=== PATIENT | male | born 1960 | race Caucasian/White ===

== ENCOUNTER 2020-06-03 19:30 | Inpatient (IN) ==
[2020-06-03 19:50] VITALS: BMI 23.7
[2020-06-03 21:32] LABS: BASOPHILS # (AUTO) 0.1 X10^3/uL (0.0-0.1); BASOPHILS % (AUTO) 0.5 % (0.2-1.0); EOSINOPHILS # (AUTO) 0.1 x10^3/uL (0.0-0.2); EOSINOPHILS % (AUTO) 0.7 % (0.9-2.9); HEMATOCRIT 46.1 % (42.0-54.0); HEMOGLOBIN 15.7 g/dL (13.5-18.0); LYMPHOCYTES # (AUTO) 2.1 X10^3/uL (1.3-2.9); LYMPHOCYTES % (AUTO) 13.9 % (21.0-51.0); MEAN CORPUSCULAR HEMOGLOBIN 31.2 pg (27.0-34.0); MEAN CORPUSCULAR HGB CONC 34.1 g/dL (33.0-35.0); MEAN CORPUSCULAR VOLUME 91.5 fL (80.0-100.0); MEAN PLATELET VOLUME 8.5 fL (7.4-11.0); MONOCYTES # (AUTO) 1.2 x10^3/uL (0.3-0.8); MONOCYTES % (AUTO) 7.6 % (0.0-13.0); NEUTROPHILS # (AUTO) 11.9 x10^3/uL (2.2-4.8); NEUTROPHILS % (AUTO) 77.3 % (42.0-75.0); PLATELET COUNT 334 X10^3/uL (150.0-450.0); RED BLOOD COUNT 5.04 X10^6/uL (4.7-6.0); RED CELL DISTRIBUTION WIDTH 13.1 % (11.6-16.5); WHITE BLOOD COUNT 15.4 X10^3/uL (3.6-10.0)
--- NOTE | 2020-06-03 21:39 | RAD ---
CHEST, 1 VIEWHISTORY: PT SCHEDULED FOR SURGERY IN AM 06-04-2020 FOR PARTIAL LLE AMPUTATION BY DR.BRIAN Wang: Single view of the chest.Comparison:NoneFindings:The cardiomediastinal silhouette is normal.No focal consolidations, pleural effusions or pneumothorax. Osseous structures demonstrate no acute abnormality.IMPRESSION:1. No acute cardiopulmonary process.Electronically signed by: SHANNA BONDS (Jun 03, 2020 21:36:56)
[2020-06-03 21:41] LABS: HEMOGLOBIN A1C 8.1 %
[2020-06-03 21:47] LABS: GIANT PLATELET OCCASIONAL; PLATELET MORPHOLOGY COMMENT ABNORMAL (NORMAL)
[2020-06-03 21:48] LABS: ALANINE AMINOTRANSFERASE 40 Units/L (12-78); ALBUMIN 3.1 g/dL (3.4-5.0); ALKALINE PHOSPHATASE 135 Units/L (46-116); ANISOCYTOSIS SLIGHT; ASPARTATE AMINO TRANSFERASE 26 Units/L (15-37); BLOOD UREA NITROGEN 14 mg/dL (7-18); CALCIUM 9.6 mg/dL (8.5-10.1); CHLORIDE 98 mmol/L (98-107); COR CA(FOR HYPOALB) 10.3 mg/dL (8.5-10.1); COR NA(FOR HYPERGLY) 138 mmol/L (136-145); CREATININE 1.01 mg/dL (0.70-1.30); SODIUM 135 mmol/L (136-145); TOTAL PROTEIN 8.4 g/dL (6.4-8.2); eGFR NON BLACK RACES > 60 (>60)
[2020-06-03] MEDS ORDERED: ROXICODONE TAB 15 MG PO ONE (21:49)
--- NOTE | 2020-06-03 22:27 | DR.EXTPAIN ---
HPI Time seen Time Seen by Provider: 06/03/20 22:14 PCP Primary Care Physician: DR.ALLEN SANCHEZ HPI Comment HPI Comment: Per information received from nurse, pt is to be admitted for transmetatarsal amputation in AM per Dr Miller; he is a pt of Dr Byrnes's ([facility]) and has a "black foot"; the pt is not sure why he is here; he sees Dr Byrnes in [place] and has seen Dr Hamilton for partial foot amputation; he's had no xrays or surgeries here in the past and has not personally met Dr Miller. s/w Dr Byrnes: Had transmetatarsal amputation two weeks ago with subsequent wound dehisence; needs re-vascularization and was to see Dr Hamilton last week; missed appointment d/t pneumonia; family said they could bring him to [facility] or [place] but not [place], so Dr Byrnes discussed w/Dr Miller who agreed to admit pt for further work up +/- further amputation; had raz at [facility]'s office and angiogram per Dr Hamilton in [facility]. Pt with diabetes, cad s/p cabg x 3 and multiple stents; continues to smoke. Complaint/Symptoms Chief Complaint:: PT SCHEDULED FOR SURGERY IN AM 06-04-2020 FOR PARTIAL LLE AMP UTATION BY DR.BRIAN BYRNES Source History Provided: Patient Mode of arrival Mode of Arrival: Wheelchair Timing Onset of Chief Complaint: 06/03/20 PMH PMH Past Medical History: Yes Past Medical History: Coronary Artery Disease, Diabetes and Dyslipidemia Past Surgical History: Yes Surgical History: Angioplasty/Stents and CABG/Valve Surgery Past Surgical History Comment: CERVICAL NECK FUSION, TOES AMPUTATED, BACK SURGERY, CAROTID STENTS Family History History of Family Medical Conditions: Yes Family Medical History: Diabetes Mellitus, [place], Coronary Artery Disease and Sudden Cardiac Social History Does patient currently use any type of tobacco product: Yes Have you used tobacco products in the last 12 months: Yes Type of Tobacco Use: Cigarettes Does any household member use tobacco: Yes Alcohol Use: None Do you use any recreational Drugs:: No Lives With: Family Lives Where: Home Infectious screening In the last 2 months have you had wt loss of >10#?: NO Have you had fever, night sweats or hemotysis?: No Have you traveled outside the country in the last 6 months?: No Isolation: Standard ROS Review of Systems Constitutional: No Symptoms Reported Eyes: No Symptoms Reported ENTM: No Symptoms Reported Respiratoy: No Symptoms Reported Cardiovascular: No Symptoms Reported Gastrointestinal/Abdominal: No Symptoms Reported Genitourinary: No Symptoms Reported Neurological: No Symptoms Reported Hematologic/Lymphatic: No Symptoms Reported Endocrine: No Symptoms Reported Psychiatric: No Symptoms Reported PE Vital Signs Vitals: Temperature 97.6 F Pulse Rate [Left Brachial] 98 Pulse Rate 99 Respiratory Rate 20 Blood Pressure [Left Arm] 115/70 Blood Pressure 99/63 O2 Sat by Pulse Oximetry 97 General Limitations: No Limitations General Appearance: Alert and In No Apparent Distress Head Head Exam: Normal Inspection Eyes Eye exam: Normal Appearance ENT ENT Exam: Normal Exam Neck Neck Exam: Normal Inspection Chest Chest Inspection: Normal Inspection Respiratory Respiratory Exam: Normal Lung Sounds Bilat Cardiovascular Cardiovascular Exam: Regular Rate and Normal Rhythm Abdominal Exam Abdominal Exam: Normal Inspection, Normal Bowel Sounds and Soft Back Back Exam: Normal Inspection Neurological Neurological Exam: Alert, Oriented X3 and CN II-XII Intact Psychiatric Psychiatric Exam: Normal Affect and Normal Mood Skin Skin Exam: Other (cool lle with dressing with minimal purulent discharge) COURSE Consultation Consultation Comments: called Dr Byrnes at [phone] and lt message for call back s/w Dr Byrnes at 10:50pm ROR Labs Reviewed Result Diagrams: 06/03/20 21:20 06/03/20 21:20 Laboratory: WBC 15.4 X10^3/uL (3.6-10.0) H 06/03/20 21:20 RBC 5.04 X10^6/uL (4.7-6.0) 06/03/20 21:20 Hgb 15.7 g/dL (13.5-18.0) 06/03/20 21:20 Hct 46.1 % (42.0-54.0) 06/03/20 21:20 MCV 91.5 fL (80.0-100.0) 06/03/20 21:20 MCH 31.2 pg (27.0-34.0) 06/03/20 21:20 MCHC 34.1 g/dL (33.0-35.0) 06/03/20 21:20 RDW 13.1 % (11.6-16.5) 06/03/20 21:20 Plt Count 334 X10^3/uL (150.0-450.0) 06/03/20 21:20 Plt Count Comment Adequate (ADEQUATE) 06/03/20 21:20 MPV 8.5 fL (7.4-11.0) 06/03/20 21:20 Neut % (Auto) 77.3 % (42.0-75.0) H 06/03/20 21:20 Lymph % (Auto) 13.9 % (21.0-51.0) L 06/03/20 21:20 [place] % (Auto) 7.6 % (0.0-13.0) 06/03/20 21:20 Eos % (Auto) 0.7 % (0.9-2.9) L 06/03/20 21:20 Baso % (Auto) 0.5 % (0.2-1.0) 06/03/20 21:20 Neut # (Auto) 11.9 x10^3/uL (2.2-4.8) H 06/03/20 21:20 Lymph # (Auto) 2.1 X10^3/uL (1.3-2.9) 06/03/20 21:20 [place] # (Auto) 1.2 x10^3/uL (0.3-0.8) H 06/03/20 21:20 Eos # (Auto) 0.1 x10^3/uL (0.0-0.2) 06/03/20 21:20 Baso # (Auto) 0.1 X10^3/uL (0.0-0.1) 06/03/20 21:20 Absolute Nucleated RBC 0.3 /100WBC 06/03/20 21:20 Giant Platelets Occasional 06/03/20 21:20 Plt Morphology Comment Abnormal (NORMAL) 06/03/20 21:20 RBC Morphology Abnormal (NORMAL) 06/03/20 21:20 Anisocytosis Slight A 06/03/20 21:20 Sodium 135 mmol/L (136-145) L 06/03/20 21:20 Corrected Sodium 138 mmol/L (136-145) 06/03/20 21:20 Potassium 4.6 mmol/L (3.5-5.1) 06/03/20 21:20 Chloride 98 mmol/L (98-107) 06/03/20 21:20 Carbon Dioxide 28.0 mmol/L (21-32) 06/03/20 21:20 BUN 14 mg/dL (7-18) 06/03/20 21:20 Creatinine 1.01 mg/dL (0.70-1.30) 06/03/20 21:20 Est GFR (MDRD) Af Amer > 60 (>60) 06/03/20 21:20 Est GFR (MDRD) Non-Af > 60 (>60) 06/03/20 21:20 Glucose 232 mg/dL (65-99) H 06/03/20 21:20 Hemoglobin A1c 8.1 % 06/03/20 21:20 Calcium 9.6 mg/dL (8.5-10.1) 06/03/20 21:20 Corrected Calcium 10.3 mg/dL (8.5-10.1) H 06/03/20 21:20 Total Bilirubin 0.50 mg/dL (0.2-1.0) 06/03/20 21:20 AST 26 Units/L (15-37) 06/03/20 21:20 ALT 40 Units/L (12-78) 06/03/20 21:20 Alkaline Phosphatase 135 Units/L (46-116) H 06/03/20 21:20 Total Protein 8.4 g/dL (6.4-8.2) H 06/03/20 21:20 Albumin 3.1 g/dL (3.4-5.0) L 06/03/20 21:20 Globulin 5.3 g/dL (2.5-4.5) H 06/03/20 21:20 Albumin/Globulin Ratio 0.6 Ratio (1.1-2.1) L 06/03/20 21:20 SARS CoV-2 RNA Rapid ROGERS Negative (NEGATIVE) 06/03/20 21:50 Opioid Opioid Risk Tool Age (Carlito box if 16-45): No History of Preadolescent Sexual Abuse: No Total: 0 Total Score Risk Category: Low Risk Copyright: Kvng FLOYD predicting aberrant behaviors Diagnosis Discharge Problem: Ulcer of left medial lower extremity with necrosis of muscle, Partial nontraumatic amputation of left foot Diabetes mellitus Qualifiers: Diabetes mellitus type: type 2 Diabetes mellitus terminal supervisor insulin use: with detention use Diabetes mellitus complication status: with skin complications Diabetes mellitus complication detail: with foot ulcer Qualified Code(s): E11.621 - Type 2 diabetes mellitus with foot ulcer Instructions Forms: Precautions for COVID19 Patient Portal Social Distancing
[2020-06-03] MEDS ORDERED: ZOSYN VIAL 2.25 GRAMS 2.25 G in NS 100 ML IV + SPIKE MINIBAG* 100 ML IV SCH (23:52)
[2020-06-03] MEDS ORDERED: ZOSYN VIAL 4.5 GRAMS IV ONE (23:59)
[2020-06-03] MEDS ORDERED: NS 1000 ML 1,000 ML ONE (23:59)
[2020-06-04] MEDS ORDERED: NS 100 ML IV + SPIKE MINIBAG* 100 ML IV ONE
[2020-06-04 00:41] LABS: BILIRUBIN,URINE NEGATIVE (NEGATIVE); BLOOD/HEMOGLOBIN,URINE 1+ (NEGATIVE); GLUCOSE, URINE 4+ (NEGATIVE); KETONES,URINE NEGATIVE (NEGATIVE); LEUKOCYTE ESTERASE ,URINE 1+ (NEGATIVE); NITRITES,URINE NEGATIVE (NEGATIVE); PROTEIN,URINE 2+ (NEGATIVE); UROBILINOGEN,URINE 2+ (NORMAL)
[2020-06-04] MEDS: NS 1000 ML 1,000 ML IV SCH ×2 (00:42→13:29)
[2020-06-04] MEDS: ZOSYN VIAL 4.5 GRAMS 4.5 G in NS 100 ML IV + SPIKE MINIBAG* 100 ML IV SCH ×4 (00:42→21:21)
[2020-06-04 00:50] LABS: COLOR,URINE AMBER (YELLOW)
[2020-06-04 00:51] LABS: APPEARANCE,URINE CLEAR (CLEAR); BACTERIA,URINE TRACE /HPF (NEGATIVE); MUCUS,URINE MODERATE /HPF (NEGATIVE); RBC,URINE 0-2 /HPF (0-3); SQUAMOUS EPITHELIAL CELL,UR FEW /HPF (NEGATIVE)
[2020-06-04 05:58] LABS: BASOPHILS % (AUTO) 0.5 % (0.2-1.0); EOSINOPHILS # (AUTO) 0.1 x10^3/uL (0.0-0.2); EOSINOPHILS % (AUTO) 1.3 % (0.9-2.9); HEMATOCRIT 38.4 % (42.0-54.0); HEMOGLOBIN 13.1 g/dL (13.5-18.0); LYMPHOCYTES # (AUTO) 2.3 X10^3/uL (1.3-2.9); LYMPHOCYTES % (AUTO) 24.1 % (21.0-51.0); MEAN CORPUSCULAR HEMOGLOBIN 30.8 pg (27.0-34.0); MEAN CORPUSCULAR VOLUME 90.7 fL (80.0-100.0); MEAN PLATELET VOLUME 8.2 fL (7.4-11.0); MONOCYTES # (AUTO) 1.1 x10^3/uL (0.3-0.8); MONOCYTES % (AUTO) 10.9 % (0.0-13.0); NEUTROPHILS # (AUTO) 6.1 x10^3/uL (2.2-4.8); NEUTROPHILS % (AUTO) 63.2 % (42.0-75.0); PLATELET COUNT 281 X10^3/uL (150.0-450.0); RED BLOOD COUNT 4.24 X10^6/uL (4.7-6.0); WHITE BLOOD COUNT 9.7 X10^3/uL (3.6-10.0)
[2020-06-04 06:18] LABS: ALANINE AMINOTRANSFERASE 32 Units/L (12-78); ALBUMIN 2.4 g/dL (3.4-5.0); ALKALINE PHOSPHATASE 100 Units/L (46-116); ASPARTATE AMINO TRANSFERASE 17 Units/L (15-37); BLOOD UREA NITROGEN 12 mg/dL (7-18); CARBON DIOXIDE 26.8 mmol/L (21-32); CHLORIDE 101 mmol/L (98-107); COR CA(FOR HYPOALB) 10.3 mg/dL (8.5-10.1); COR NA(FOR HYPERGLY) 139 mmol/L (136-145); CREATININE 0.91 mg/dL (0.70-1.30); SODIUM 137 mmol/L (136-145); TOTAL PROTEIN 6.5 g/dL (6.4-8.2); eGFR NON BLACK RACES > 60 (>60)
[2020-06-04] MEDS ORDERED: NS 100 ML IV 100 ML IV ONE (08:36)
--- NOTE | 2020-06-04 10:21 | DR.H&P ---
H&P History & Physical for Day of: H&P Date: 06/04/20 Chief Complaint Chief Complaint: 59 yo male with significant history of tobacco abuse ( still smoking), diabetes, history of CABG x 3 vessels in the distant past as well as stenting both carotids, failed coronary stents prior to CABG, Femoral -FEMORAL bypass and right fem-pop bypass and right trans-metatarsal amputation with recent left trans-metatarsal amputation about 4 month ago with wound left dorsal foot now with rubor and gangrenous changes dorsal left foot with question of cellulitis . Wound of the left foot is open with eschar approximately 5x5 cm. Spoke with referring front office developer, Dr. Byrnes who said that patient had been planned for bypass of the left leg in [place], [place] in the near future. He did not want to go to [place], hence I have been consulted. Allergies Allergies Allergy/AdvReac Type Severity Reaction Status Date / Time Thgvqkr-Vml-Faw Reductase Allergy Verified 06/03/20 21:56 Inhibitor History of Present Illness History of Present Illness: See above Past Medical History Past Medical History: COPD, Coronary Artery Disease, Diabetes, Dyslipidemia, GERD and Hypertension Past Surgical History Surgical History: Angioplasty/Stents and CABG/Valve Surgery Additional Surgical History: See H& P above . Family History Family Medical History: Diabetes Mellitus, [place], Coronary Artery Disease and Sudden Cardiac Social History Does patient currently use any type of tobacco product: Yes Have you used tobacco products in the last 12 months: Yes Type of Tobacco Use: Cigarettes How many years tobacco product used: 40 Does any household member use tobacco: Yes Alcohol Use: None Drug Use: None Medications Home Medications: Idjhjcv-Rqz-Qsu Reductase Inhibitor Allergy (Verified 06/03/20 21:56) CONTINUE taking the following medications albuterol sulfate [ProAir HFA] 2 puff INHALATION Q4H PRN 06/03/20 [History] aspirin [Aspir-81] 81 mg PO DAILY 06/03/20 [History] carvedilol 6.25 mg PO BID 06/03/20 [History] cyclobenzaprine 10 mg PO BID 06/03/20 [History] rcbavhevbkx-kntyisxmk-oposwucf [Trelegy Ellipta] 1 inh INHALATION Q24H 06/03/20 [History] gabapentin 800 mg PO TID 06/03/20 [History] levofloxacin [Levaquin] 500 mg PO Q24H 06/03/20 [History] oxycodone 30 mg PO Q8H PRN 06/03/20 [History] pantoprazole 40 mg PO QAM 06/03/20 [History] Labs Result Diagrams: 06/04/20 05:19 06/04/20 05:19 Labs: Laboratory WBC 9.7 X10^3/uL (3.6-10.0) 06/04/20 05:19 RBC 4.24 X10^6/uL (4.7-6.0) L 06/04/20 05:19 Hgb 13.1 g/dL (13.5-18.0) L D 06/04/20 05:19 Hct 38.4 % (42.0-54.0) L 06/04/20 05:19 MCV 90.7 fL (80.0-100.0) 06/04/20 05:19 MCH 30.8 pg (27.0-34.0) 06/04/20 05:19 MCHC 34.0 g/dL (33.0-35.0) 06/04/20 05:19 RDW 13.0 % (11.6-16.5) 06/04/20 05:19 Plt Count 281 X10^3/uL (150.0-450.0) 06/04/20 05:19 Plt Count Comment Adequate (ADEQUATE) 06/03/20 21:20 MPV 8.2 fL (7.4-11.0) 06/04/20 05:19 Neut % (Auto) 63.2 % (42.0-75.0) 06/04/20 05:19 Lymph % (Auto) 24.1 % (21.0-51.0) 06/04/20 05:19 [place] % (Auto) 10.9 % (0.0-13.0) 06/04/20 05:19 Eos % (Auto) 1.3 % (0.9-2.9) 06/04/20 05:19 Baso % (Auto) 0.5 % (0.2-1.0) 06/04/20 05:19 Neut # (Auto) 6.1 x10^3/uL (2.2-4.8) H 06/04/20 05:19 Lymph # (Auto) 2.3 X10^3/uL (1.3-2.9) 06/04/20 05:19 [place] # (Auto) 1.1 x10^3/uL (0.3-0.8) H 06/04/20 05:19 Eos # (Auto) 0.1 x10^3/uL (0.0-0.2) 06/04/20 05:19 Baso # (Auto) 0.0 X10^3/uL (0.0-0.1) 06/04/20 05:19 Absolute Nucleated RBC 0.0 /100WBC 06/04/20 05:19 Giant Platelets Occasional 06/03/20 21:20 Plt Morphology Comment Abnormal (NORMAL) 06/03/20 21:20 RBC Morphology Abnormal (NORMAL) 06/03/20 21:20 Anisocytosis Slight A 06/03/20 21:20 Sodium 137 mmol/L (136-145) 06/04/20 05:19 Corrected Sodium 139 mmol/L (136-145) 06/04/20 05:19 Potassium 3.9 mmol/L (3.5-5.1) 06/04/20 05:19 Chloride 101 mmol/L (98-107) 06/04/20 05:19 Carbon Dioxide 26.8 mmol/L (21-32) 06/04/20 05:19 BUN 12 mg/dL (7-18) 06/04/20 05:19 Creatinine 0.91 mg/dL (0.70-1.30) 06/04/20 05:19 Est GFR (MDRD) Af Amer > 60 (>60) 06/04/20 05:19 Est GFR (MDRD) Non-Af > 60 (>60) 06/04/20 05:19 Glucose 173 mg/dL (65-99) H 06/04/20 05:19 POC Glucose (mg/dL) 167 mg/dL (65-99) H 06/04/20 05:02 Hemoglobin A1c 8.1 % 06/03/20 21:20 Calcium 9.0 mg/dL (8.5-10.1) 06/04/20 05:19 Corrected Calcium 10.3 mg/dL (8.5-10.1) H 06/04/20 05:19 Total Bilirubin 0.50 mg/dL (0.2-1.0) 06/04/20 05:19 AST 17 Units/L (15-37) 06/04/20 05:19 ALT 32 Units/L (12-78) 06/04/20 05:19 Alkaline Phosphatase 100 Units/L (46-116) 06/04/20 05:19 Total Protein 6.5 g/dL (6.4-8.2) 06/04/20 05:19 Albumin 2.4 g/dL (3.4-5.0) L 06/04/20 05:19 Globulin 4.1 g/dL (2.5-4.5) 06/04/20 05:19 Albumin/Globulin Ratio 0.6 Ratio (1.1-2.1) L 06/04/20 05:19 Specimen Type Clean catch urine 06/04/20 00:18 Urine Color Evita (YELLOW) 06/04/20 00:18 Urine Appearance Clear (CLEAR) 06/04/20 00:18 Urine pH 5.0 (5.0 - 8.0) 06/04/20 00:18 Ur Specific [place] 1.025 (1.000-1.030) 06/04/20 00:18 Urine Protein 2+ (NEGATIVE) 06/04/20 00:18 Urine Glucose (UA) 4+ (NEGATIVE) 06/04/20 00:18 Urine Ketones Negative (NEGATIVE) 06/04/20 00:18 Urine Occult Blood 1+ (NEGATIVE) 06/04/20 00:18 Urine Nitrite Negative (NEGATIVE) 06/04/20 00:18 Urine Bilirubin Negative (NEGATIVE) 06/04/20 00:18 Urine Urobilinogen 2+ (NORMAL) 06/04/20 00:18 Ur Leukocyte Esterase 1+ (NEGATIVE) 06/04/20 00:18 Urine RBC 0-2 /HPF (0-3) 06/04/20 00:18 Urine WBC 0-2 /HPF (0-5) 06/04/20 00:18 Ur Squamous Epith Cells Few /HPF (NEGATIVE) 06/04/20 00:18 Urine Bacteria Trace /HPF (NEGATIVE) 06/04/20 00:18 Urine Mucus Moderate /HPF (NEGATIVE) 06/04/20 00:18 Ur Culture Indicated? No/not indicated 06/04/20 00:18 SARS CoV-2 RNA Rapid ROGERS Negative (NEGATIVE) 06/03/20 21:50 Review of Systems Constitutional: Other (pain and redness left foot with non-healing wound) Cardiovascular: Other ( femoral pulses weakly palpable b/l , absebt distal pulse both feet.) Gastrointestinal: No Symptoms Reported and See HPI Genitourinary: No Symptoms Reported Musculoskeletal: Foot Pain ( Paoin left foot ) and Other Skin: Wound ( Wound dorsum of the left foot.) Neurological: No Symptoms Reported Physical Exam Vital Signs: Temperature 97.8 F Pulse Rate [Left Brachial] 70 Pulse Rate 99 Respiratory Rate 18 Blood Pressure [Left Arm] 99/58 Blood Pressure 99/63 O2 Sat by Pulse Oximetry 95 Oriented: Normal, Time and Place Eyes: Normal Ear: Normal Nose: Normal Throat: Normal Respiratory: Diminished Throughout Cardiovascular: Normal : Normal Auscultation: Bowel Sounds: Normal Palpation: Normal Tenderness: Normal Skin: Wound (5x 5 cm dark eschar dorsum left foot with cellulitis , healed right transmetatarsal amputation) and Other Assessment/Plan (1) Tobacco abuse: Status: Acute Plan: Nicotine patch, counseling of risk of smoking and limb loss (2) Critical ischemia of foot: Status: Acute Plan: Plan LE duplex and CTA of aorta and runoff to make a plan for re- vascularization. Significant risk of limb loss left leg this hospitalization (3) Ulcer of left medial lower extremity with necrosis of muscle: Status: Acute Plan: See above. Will treat with IV antibiotics and Santyl. (4) Partial nontraumatic amputation of left foot: Status: Acute Plan: See above (5) Diabetes mellitus: Qualifiers: Diabetes mellitus complication detail: with foot ulcer Diabetes mellitus complication status: with skin complications Diabetes mellitus mcc insulin use: with mcc use Diabetes mellitus type: type 2 Qualified Code(s): E11.621 - Type 2 diabetes mellitus with foot ulcer; L97.509 - Non- pressure chronic ulcer of other part of unspecified foot with unspecified severity; Z79.4 - termite exterminator (current) use of insulin Status: Acute Plan: Sliding scale insulin now, check Hgb A1c (6) Hypertension: Qualifiers: Hypertension type: essential hypertension Qualified Code(s): I10 - Essential (primary) hypertension Status: Acute Plan: Continue home medications (7) GERD (gastroesophageal reflux disease): Qualifiers: Esophagitis presence: esophagitis presence not specified Qualified Code(s): K21.9 - Gastro-esophageal reflux disease without esophagitis Status: Acute Plan: Continue home medications Review H&P Reviewed: Yes Patient was examined?: Yes
[2020-06-04] MEDS ORDERED: REFLEX: PROVENTIL NEB & PulmiCORT NEB~ NEB SCH (11:15)
--- NOTE | 2020-06-04 11:58 | CT ---
HISTORYISCHEMIC LEFT FOOT, HX OF LE BYPASSSTUDYCTA abdomen, pelvis, and bilateral lower extremities without and with IV contrastCOMPARISONNoneTECHNIQUEMultiple axial images of the abdomen, pelvis, and bilateral lower extremities were obtained from the lung bases to the plantar surface of the feet prior to and following the administration of IV contrast. 150 cc Omnipaque 350 IV contrast. 3D reconstructions were performed utilizing radial maximum intensity projection imaging. Dose reduction techniques including Automated Exposure Control (AEC) and adjustment of mA and kV were utilized.FINDINGSThere is abnormal infiltrative alveolar density in the right lung base. This may be lobar pneumonia but infiltrative malignancy should be given consideration. This area is obscured due to the diaphragm on chest x-ray. Possible fatty infiltration of the liver. Gallbladder and pancreas appear normal. Spleen and adrenal glands appear normal. Kidneys are excreting contrast at time of imaging limiting evaluation for tiny stones. No hydronephrosis is seen. Benign renal cysts are seen.Prostate gland is prominent measuring 5.6 x 4.2 x 4.8 cm. No free pelvic fluid is seen. There is mild diffuse constipation. There is normal appendix. Moderate scoliosis is seen in the thoracolumbar spine with likely moderate to prominent lumbar spondylosis.Abdominal aorta: Normal in size. Mild partially calcified atherosclerotic plaque is seen in the abdominal aorta. There is no celiac axis stenosis but there is likely 50 percent stenosis in the origin of the SMA. Mild stenosis is seen in the mid SMA, also. Distal SMA branches appear to enhance normally. [place] may have mild stenosis at the origin but enhances normally. Single renal arteries are seen bilaterally without significant stenosis.Common iliac arteries: Partially calcified plaque in the common iliac arteries causes 60-70 percent stenosis at the origin of the right common iliac artery. No suggestion of significant left common iliac stenosis is seen. There is a stent in the distal left common iliac artery extending into the left external iliac artery.External iliac arteries: There is normal enhancement of the stent in the left external iliac artery. There is occlusion of the mid to distal right external iliac artery. Patient has fem-fem bypass graft arising from the left common femoral artery and supplying the right common femoral artery. It enhances normally.Right lower extremity: Enhancement of the distal right GRAPHIC DESIGN MANAGER from the fem-fem bypass graft is seen but there is occlusion of the right SFA at the origin. A right SFA bypass graft does not enhance. Collaterals from the deep femoral vasculature supply the muscogee distal right SFA. Moderate calcified plaque in the distal right femoral artery may cause hemodynamically significant stenosis. Little stenoses are seen in the right popliteal artery. Calcified plaque in the proximal right JASEN likely causes moderate stenosis but three-vessel runoff is seen enhancing near the right ankle. Right peroneal artery is not definitely identified to enhance at the ankle but this could be due to timing of imaging.Left lower extremity: There is calcified plaque in the left GRAPHIC DESIGN MANAGER very near the fem-fem bypass graft. This plaque likely causes 70-80 percent stenosis. Noncalcified plaque within the origin of the left SFA stent causes subtotal stenosis of the graft. There is occlusion of the left SFA stent a few cm from its origin. Enhancement of small distal left SFA and popliteal artery is seen intermittently. Collateral vasculature supplies the left lower leg. Anterior tibial artery is very minimally and intermittently opacified but three-vessel runoff is seen at the ankle due to collaterals.There is asymmetric edema in the left ankle and foot. Less prominent edema is seen in the right foot. There is air or gas in the left forefoot near the mid metatarsal region with skin ulcerations in this area. Gas gangrene is not excluded but the air or gas could be from the ulcerations. Likely amputation of the metatarsals is present bilaterally.IMPRESSIONProminent stenoses and occlusions are seen in both lower extremities with possible cellulitis in the feet. Skin ulcerations in the left foot with air or gas in the soft tissues. Gas gangrene is not excluded.Right SFA bypass graft is occluded with deep femoral vasculature supplying the distal right SFA. Possible hemodynamically significant stenoses in the distal right SFA and proximal right JASEN but three-vessel runoff is seen just above the ankle. Nonenhancing right peroneal artery is seen at the ankle but this may be due to timing.Patent fem-fem bypass graft but there is high-grade stenosis of the left GRAPHIC DESIGN MANAGER proximal to the bypass graft, likely 70 80 percent stenosis. Subtotal stenosis is seen in the origin of the left SFA stent and there is occlusion of the left SFA stent near its origin. Only intermittent appearance of distal left SFA and popliteal artery is seen with deep collateral vasculature supplying the left lower leg. Collateral vasculature appears to reconstitute the left peroneal and posterior tibial arteries proximally with the left anterior tibial artery supplied by collaterals at the level of the ankle.Electronically signed by: Delon AlvesJun 04, 2020 11:56:08)
--- NOTE | 2020-06-04 12:27 | VAS ---
HISTORYLLE NECROSIS/ISCHEMIC ARTERY DISEASE, WOUND DEHISENCESTUDYLOWER EXT ARTERIALCOMPARISONCTA aortogram runoff 06/04/2020TECHNIQUESixty images made by the software quality assurance specialist. Ordaz scale and color flow Doppler images of the right and left lower extremity arterial system were obtained. Velocities are measured in centimeters per second.FINDINGSLeft leg: Blood flow is demonstrated in the left common femoral artery. Systolic velocity measured 141 cm/second. The waveform appears monophasic small suggesting a more proximal left iliac stenosis.No color blood flow, waveform, or velocity could be found in superficial femoral artery or the popliteal artery. No blood flow detected in the peroneal artery. No blood flow seen in the dorsalis pedis artery. Findings suggest a long complete occlusion.Right leg: Blood flow is demonstrated in the common femoral artery in the proximal superficial femoral artery. Maximum systolic velocity measures 203 cm/second in the common femoral artery but the waveform is monophasic suggesting a proximal iliac stenosis.No blood flow seen in the middle or distal superficial femoral artery. There is blood flow in the popliteal artery suggesting reconstitution from geniculate and profunda collaterals. Peroneal artery and the distal posterior tibial artery are patent with monophasic waveforms. No blood flow seen in the dorsalis pedis circulation.Findings are compatible with a long segmental SFA occlusion with reconstitution at the popliteal artery.IMPRESSION1. 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 Segmental occlusion of right SFA with reconstitution of the popliteal artery; posterior tibial arteryElectronically signed by: Georges Torrez (Jun 04, 2020 12:24:33)
[2020-06-04] MEDS ORDERED: VENTOLIN or PROAIR HFA IN SCH (13:00)
[2020-06-04] MEDS: DUONEB 0.5 MG/3 MG (3 mL) NEB SCH ×3 (13:07→20:10)
[2020-06-04] MEDS: PERCOCET TAB 5/325 MG PO PRN ×2 (13:29→22:15)
[2020-06-04] MEDS ORDERED: DILAUDID INJ ONE (16:53)
[2020-06-04] MEDS: DILAUDID INJ IVP PRN ×2 (16:54→20:17)
[2020-06-04] MEDS: HumuLIN R SUBCUT PRN (17:42)
[2020-06-04] MEDS ORDERED: PULMICORT NEB TX 0.5 MG NEB ONE (19:24)
[2020-06-04] MEDS ORDERED: NICOTINE PATCH TD ONE (19:27)
[2020-06-04] MEDS: PULMICORT NEB TX 0.5 MG NEB SCH (20:10)
[2020-06-04] MEDS: NICOTINE PATCH TD SCH (20:17)
[2020-06-04] MEDS: NEURONTIN CAP 400 MG PO SCH (20:36)
[2020-06-04] MEDS: COREG TAB 6.25 MG PO SCH (20:36)
--- NOTE | 2020-06-04 22:53 | PCM.PROG ---
Progress Note Progress Note for Day of Date of Exam: 06/04/20 Subjective Subjective: See H& P. Had LE duplex and CTA of aorta with b/l runoff Past Medical Family Social History Allergies: Allergies Bephztr-Dcm-Ueb Reductase Inhibitor Allergy (Verified 06/03/20 21:56) Vital Signs and I&O's Vital Signs: Temperature 97.8 F Pulse Rate [Left Brachial] 76 Pulse Rate 71 Respiratory Rate 21 Blood Pressure [Left Arm] 106/51 Blood Pressure 99/63 O2 Sat by Pulse Oximetry 98 Intake and Output: Intake & Output 06/01/20 06/02/20 06/03/20 06/04/20 23:59 23:59 23:59 23:59 Intake Total 1740 / 1740 Output Total 600 / 600 Balance 1140 / 1140 Physical Exam Oriented: Normal, Time and Place Eyes: Normal Ear: Normal Nose: Normal Throat: Normal Cardiovascular: Normal : Normal Auscultation: Bowel Sounds: Normal Tenderness: Normal Skin: Wound (5x 5 cm dark eschar dorsum left foot with cellulitis , healed right transmetatarsal amputation) and Other Speech Pattern: Clear and Appropriate Laboratory and Diagnostics Result Diagrams: 06/04/20 05:19 06/04/20 05:19 Labs: Laboratory WBC 9.7 X10^3/uL (3.6-10.0) 06/04/20 05:19 RBC 4.24 X10^6/uL (4.7-6.0) L 06/04/20 05:19 Hgb 13.1 g/dL (13.5-18.0) L D 06/04/20 05:19 Hct 38.4 % (42.0-54.0) L 06/04/20 05:19 MCV 90.7 fL (80.0-100.0) 06/04/20 05:19 MCH 30.8 pg (27.0-34.0) 06/04/20 05:19 MCHC 34.0 g/dL (33.0-35.0) 06/04/20 05:19 RDW 13.0 % (11.6-16.5) 06/04/20 05:19 Plt Count 281 X10^3/uL (150.0-450.0) 06/04/20 05:19 Plt Count Comment Adequate (ADEQUATE) 06/03/20 21:20 MPV 8.2 fL (7.4-11.0) 06/04/20 05:19 Neut % (Auto) 63.2 % (42.0-75.0) 06/04/20 05:19 Lymph % (Auto) 24.1 % (21.0-51.0) 06/04/20 05:19 [place] % (Auto) 10.9 % (0.0-13.0) 06/04/20 05:19 Eos % (Auto) 1.3 % (0.9-2.9) 06/04/20 05:19 Baso % (Auto) 0.5 % (0.2-1.0) 06/04/20 05:19 Neut # (Auto) 6.1 x10^3/uL (2.2-4.8) H 06/04/20 05:19 Lymph # (Auto) 2.3 X10^3/uL (1.3-2.9) 06/04/20 05:19 [place] # (Auto) 1.1 x10^3/uL (0.3-0.8) H 06/04/20 05:19 Eos # (Auto) 0.1 x10^3/uL (0.0-0.2) 06/04/20 05:19 Baso # (Auto) 0.0 X10^3/uL (0.0-0.1) 06/04/20 05:19 Absolute Nucleated RBC 0.0 /100WBC 06/04/20 05:19 Giant Platelets Occasional 06/03/20 21:20 Plt Morphology Comment Abnormal (NORMAL) 06/03/20 21:20 RBC Morphology Abnormal (NORMAL) 06/03/20 21:20 Anisocytosis Slight A 06/03/20 21:20 Sodium 137 mmol/L (136-145) 06/04/20 05:19 Corrected Sodium 139 mmol/L (136-145) 06/04/20 05:19 Potassium 3.9 mmol/L (3.5-5.1) 06/04/20 05:19 Chloride 101 mmol/L (98-107) 06/04/20 05:19 Carbon Dioxide 26.8 mmol/L (21-32) 06/04/20 05:19 BUN 12 mg/dL (7-18) 06/04/20 05:19 Creatinine 0.91 mg/dL (0.70-1.30) 06/04/20 05:19 Est GFR (MDRD) Af Amer > 60 (>60) 06/04/20 05:19 Est GFR (MDRD) Non-Af > 60 (>60) 06/04/20 05:19 Glucose 173 mg/dL (65-99) H 06/04/20 05:19 POC Glucose (mg/dL) 167 mg/dL (65-99) H 06/04/20 19:39 Hemoglobin A1c 8.4 % 06/04/20 05:19 Calcium 9.0 mg/dL (8.5-10.1) 06/04/20 05:19 Corrected Calcium 10.3 mg/dL (8.5-10.1) H 06/04/20 05:19 Total Bilirubin 0.50 mg/dL (0.2-1.0) 06/04/20 05:19 AST 17 Units/L (15-37) 06/04/20 05:19 ALT 32 Units/L (12-78) 06/04/20 05:19 Alkaline Phosphatase 100 Units/L (46-116) 06/04/20 05:19 Total Protein 6.5 g/dL (6.4-8.2) 06/04/20 05:19 Albumin 2.4 g/dL (3.4-5.0) L 06/04/20 05:19 Globulin 4.1 g/dL (2.5-4.5) 06/04/20 05:19 Albumin/Globulin Ratio 0.6 Ratio (1.1-2.1) L 06/04/20 05:19 Specimen Type Clean catch urine 06/04/20 00:18 Urine Color Evita (YELLOW) 06/04/20 00:18 Urine Appearance Clear (CLEAR) 06/04/20 00:18 Urine pH 5.0 (5.0 - 8.0) 06/04/20 00:18 Ur Specific [place] 1.025 (1.000-1.030) 06/04/20 00:18 Urine Protein 2+ (NEGATIVE) 06/04/20 00:18 Urine Glucose (UA) 4+ (NEGATIVE) 06/04/20 00:18 Urine Ketones Negative (NEGATIVE) 06/04/20 00:18 Urine Occult Blood 1+ (NEGATIVE) 06/04/20 00:18 Urine Nitrite Negative (NEGATIVE) 06/04/20 00:18 Urine Bilirubin Negative (NEGATIVE) 06/04/20 00:18 Urine Urobilinogen 2+ (NORMAL) 06/04/20 00:18 Ur Leukocyte Esterase 1+ (NEGATIVE) 06/04/20 00:18 Urine RBC 0-2 /HPF (0-3) 06/04/20 00:18 Urine WBC 0-2 /HPF (0-5) 06/04/20 00:18 Ur Squamous Epith Cells Few /HPF (NEGATIVE) 06/04/20 00:18 Urine Bacteria Trace /HPF (NEGATIVE) 06/04/20 00:18 Urine Mucus and Moderate /HPF (NEGATIVE) 06/04/20 00:18 Ur Culture Indicated? No/not indicated 06/04/20 00:18 SARS CoV-2 RNA Rapid ROGERS Negative (NEGATIVE) 06/03/20 21:50 CTA reviewed and it shows the the occluded right external iliac artery and f em- fem bypass which is patent. Right fem -pop iis occluded and left SFA is occluded distally at the stent placed at the adductor canal with severe disease of the left popliteal artery and poor runoff distally. Plan (1) Tobacco abuse: Status: Acute Plan: Nicotine patch, counseling of risk of smoking and limb loss (2) Critical ischemia of foot: Status: Acute Plan: Will attempt atherectomy and drug coated balloon angioplasty of the left leg and possible angioplasty distally . If this fails will need femoral tibial bypass as a back-up plan. (3) Ulcer of left medial lower extremity with necrosis of muscle: Status: Acute Plan: See above. Will treat with IV antibiotics and Santyl. (4) Partial nontraumatic amputation of left foot: Status: Acute Plan: See above (5) Diabetes mellitus: Status: Acute Qualifiers: Diabetes mellitus complication detail: with foot ulcer Diabetes mellitus complication status: with skin complications Diabetes mellitus care home insulin use: with care home use Diabetes mellitus type: type 2 Qualified Code(s): E11.621 - Type 2 diabetes mellitus with foot ulcer; L97.509 - Non- pressure chronic ulcer of other part of unspecified foot with unspecified severity; Z79.4 - jail (current) use of insulin Plan: Sliding scale insulin now, check Hgb A1c (6) Hypertension: Status: Acute Qualifiers: Hypertension type: essential hypertension Qualified Code(s): I10 - Essential (primary) hypertension Plan: Continue home medications (7) GERD (gastroesophageal reflux disease): Status: Acute Qualifiers: Esophagitis presence: esophagitis presence not specified Qualified Code(s): K21.9 - Gastro-esophageal reflux disease without esophagitis Plan: Continue home medications
[2020-06-05] MEDS: DILAUDID INJ IVP PRN ×6 (00:08→23:13)
[2020-06-05] MEDS: NS 1000 ML 1,000 ML IV SCH ×2 (00:51→16:22)
[2020-06-05] MEDS: PERCOCET TAB 5/325 MG PO PRN ×3 (04:09→20:51)
[2020-06-05] MEDS: ZOSYN VIAL 4.5 GRAMS 4.5 G in NS 100 ML IV + SPIKE MINIBAG* 100 ML IV SCH ×3 (05:21→21:52)
[2020-06-05] MEDS: DUONEB 0.5 MG/3 MG (3 mL) NEB SCH ×4 (08:23→20:00)
[2020-06-05] MEDS: PULMICORT NEB TX 0.5 MG NEB SCH ×2 (08:23→20:00)
[2020-06-05] MEDS: COREG TAB 6.25 MG PO SCH ×2 (08:46→21:01)
[2020-06-05] MEDS: ASPIRIN 81 MG CHEWTAB PO SCH ×2 (08:46→11:19)
[2020-06-05] MEDS: NEURONTIN CAP 400 MG PO SCH ×2 (08:46→20:51)
[2020-06-05] MEDS: PROTONIX TAB 40 MG PO SCH (08:46)
[2020-06-05] MEDS: SANTYL EXT SCH (11:19)
[2020-06-05] MEDS: HumuLIN R SUBCUT PRN (16:09)
[2020-06-05] MEDS: NICOTINE PATCH TD SCH (20:54)
--- NOTE | 2020-06-05 22:07 | PCM.PROG ---
Progress Note Progress Note for Day of Date of Exam: 06/05/20 Subjective Subjective: See H& P. Had LE duplex and CTA of aorta with b/l runoff. Doppler shows both right fem-pop bypass and lower [place] left SFA at site of distal stent occluded with poor runoff b/l and fem - fem graft is patent ( done originally for occluded right external iliac artery). Has necrotic eschar of dorsum left foot following left transmetatarsal amputation several months ago with cellulitis. Past Medical Family Social History Allergies: Allergies Wbdtrew-Zax-Cvm Reductase Inhibitor Allergy (Verified 06/03/20 21:56) Vital Signs and I&O's Vital Signs: Temperature 97.8 F Pulse Rate [Left Brachial] 76 Pulse Rate 72 Respiratory Rate 20 Blood Pressure [Right Arm] 103/63 Blood Pressure [Left Arm] 116/58 Blood Pressure 99/63 O2 Sat by Pulse Oximetry 95 Intake and Output: Intake & Output 06/02/20 06/03/20 06/04/20 06/05/20 23:59 23:59 23:59 23:59 Intake Total 2920 / 2920 1320 / 1320 Output Total 725 / 725 1325 / 1325 Balance 2195 / 2195 -5 / -5 Physical Exam Oriented: Normal, Time and Place Eyes: Normal Ear: Normal Nose: Normal Throat: Normal Cardiovascular: Normal : Normal Auscultation: Bowel Sounds: Normal Tenderness: Normal Skin: Wound (5x 5 cm dark eschar dorsum left foot with cellulitis , healed right transmetatarsal amputation. Not much change in the redness and may represent more rubor of ischemia than cellulitis. ) and Other Speech Pattern: Clear and Appropriate Laboratory and Diagnostics Result Diagrams: 06/04/20 05:19 06/04/20 05:19 Labs: Laboratory WBC 9.7 X10^3/uL (3.6-10.0) 06/04/20 05:19 RBC 4.24 X10^6/uL (4.7-6.0) L 06/04/20 05:19 Hgb 13.1 g/dL (13.5-18.0) L D 06/04/20 05:19 Hct 38.4 % (42.0-54.0) L 06/04/20 05:19 MCV 90.7 fL (80.0-100.0) 06/04/20 05:19 MCH 30.8 pg (27.0-34.0) 06/04/20 05:19 MCHC 34.0 g/dL (33.0-35.0) 06/04/20 05:19 RDW 13.0 % (11.6-16.5) 06/04/20 05:19 Plt Count 281 X10^3/uL (150.0-450.0) 06/04/20 05:19 Plt Count Comment Adequate (ADEQUATE) 06/03/20 21:20 MPV 8.2 fL (7.4-11.0) 06/04/20 05:19 Neut % (Auto) 63.2 % (42.0-75.0) 06/04/20 05:19 Lymph % (Auto) 24.1 % (21.0-51.0) 06/04/20 05:19 [place] % (Auto) 10.9 % (0.0-13.0) 06/04/20 05:19 Eos % (Auto) 1.3 % (0.9-2.9) 06/04/20 05:19 Baso % (Auto) 0.5 % (0.2-1.0) 06/04/20 05:19 Neut # (Auto) 6.1 x10^3/uL (2.2-4.8) H 06/04/20 05:19 Lymph # (Auto) 2.3 X10^3/uL (1.3-2.9) 06/04/20 05:19 [place] # (Auto) 1.1 x10^3/uL (0.3-0.8) H 06/04/20 05:19 Eos # (Auto) 0.1 x10^3/uL (0.0-0.2) 06/04/20 05:19 Baso # (Auto) 0.0 X10^3/uL (0.0-0.1) 06/04/20 05:19 Absolute Nucleated RBC 0.0 /100WBC 06/04/20 05:19 Giant Platelets Occasional 06/03/20 21:20 Plt Morphology Comment Abnormal (NORMAL) 06/03/20 21:20 RBC Morphology Abnormal (NORMAL) 06/03/20 21:20 Anisocytosis Slight A 06/03/20 21:20 Sodium 137 mmol/L (136-145) 06/04/20 05:19 Corrected Sodium 139 mmol/L (136-145) 06/04/20 05:19 Potassium 3.9 mmol/L (3.5-5.1) 06/04/20 05:19 Chloride 101 mmol/L (98-107) 06/04/20 05:19 Carbon Dioxide 26.8 mmol/L (21-32) 06/04/20 05:19 BUN 12 mg/dL (7-18) 06/04/20 05:19 Creatinine 0.91 mg/dL (0.70-1.30) 06/04/20 05:19 Est GFR (MDRD) Af Amer > 60 (>60) 06/04/20 05:19 Est GFR (MDRD) Non-Af > 60 (>60) 06/04/20 05:19 Glucose 173 mg/dL (65-99) H 06/04/20 05:19 POC Glucose (mg/dL) 136 mg/dL (65-99) H 06/05/20 20:10 Hemoglobin A1c 8.4 % 06/04/20 05:19 Calcium 9.0 mg/dL (8.5-10.1) 06/04/20 05:19 Corrected Calcium 10.3 mg/dL (8.5-10.1) H 06/04/20 05:19 Total Bilirubin 0.50 mg/dL (0.2-1.0) 06/04/20 05:19 AST 17 Units/L (15-37) 06/04/20 05:19 ALT 32 Units/L (12-78) 06/04/20 05:19 Alkaline Phosphatase 100 Units/L (46-116) 06/04/20 05:19 Total Protein 6.5 g/dL (6.4-8.2) 06/04/20 05:19 Albumin 2.4 g/dL (3.4-5.0) L 06/04/20 05:19 Globulin 4.1 g/dL (2.5-4.5) 06/04/20 05:19 Albumin/Globulin Ratio 0.6 Ratio (1.1-2.1) L 06/04/20 05:19 Specimen Type Clean catch urine 06/04/20 00:18 Urine Color Evita (YELLOW) 06/04/20 00:18 Urine Appearance Clear (CLEAR) 06/04/20 00:18 Urine pH 5.0 (5.0 - 8.0) 06/04/20 00:18 Ur Specific [place] 1.025 (1.000-1.030) 06/04/20 00:18 Urine Protein 2+ (NEGATIVE) 06/04/20 00:18 Urine Glucose (UA) 4+ (NEGATIVE) 06/04/20 00:18 Urine Ketones Negative (NEGATIVE) 06/04/20 00:18 Urine Occult Blood 1+ (NEGATIVE) 06/04/20 00:18 Urine Nitrite Negative (NEGATIVE) 06/04/20 00:18 Urine Bilirubin Negative (NEGATIVE) 06/04/20 00:18 Urine Urobilinogen 2+ (NORMAL) 06/04/20 00:18 Ur Leukocyte Esterase 1+ (NEGATIVE) 06/04/20 00:18 Urine RBC 0-2 /HPF (0-3) 06/04/20 00:18 Urine WBC 0-2 /HPF (0-5) 06/04/20 00:18 Ur Squamous Epith Cells Few /HPF (NEGATIVE) 06/04/20 00:18 Urine Bacteria Trace /HPF (NEGATIVE) 06/04/20 00:18 Urine Mucus Moderate /HPF (NEGATIVE) 06/04/20 00:18 Ur Culture Indicated? No/not indicated 06/04/20 00:18 SARS CoV-2 RNA Rapid ROGERS Negative (NEGATIVE) 06/03/20 21:50 Plan (1) Tobacco abuse: Status: Acute Plan: Nicotine patch, counseling of risk of smoking and limb loss (2) Critical ischemia of foot: Status: Acute Plan: Will attempt atherectomy and drug coated balloon angioplasty of the left leg and possible angioplasty distally . If this fails will need femoral tibial bypass as a back-up plan. Have discussed risks of bleeding, infection, limb loss and . Approximately 70 % chance of success with peripheral intervention. I have explained to both he and his daughter that I have done many such cases but this will be my first one in this location in [facility]. Our staff is trained and experienced with surgery but this is the first actual case of this type they have done. They bothn understand and agree to proceed. Scheduled to done tomorrow at noon. (3) Ulcer of left medial lower extremity with necrosis of muscle: Status: Acute Plan: See above. Will treat with IV antibiotics and Santyl. 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 Diabetes mellitus type: type 2 Qualified Code(s): E11.621 - Type 2 diabetes mellitus with foot ulcer; L97.509 - Non- pressure chronic ulcer of other part of unspecified foot with unspecified severity; Z79.4 - halfway (current) use of insulin Plan: Sliding scale insulin now, check Hgb A1c (6) Hypertension: Status: Acute Qualifiers: Hypertension type: essential hypertension Qualified Code(s): I10 - Essential (primary) hypertension Plan: Continue home medications (7) GERD (gastroesophageal reflux disease): Status: Acute Qualifiers: Esophagitis presence: esophagitis presence not specified Qualified Code(s): K21.9 - Gastro-esophageal reflux disease without esophagitis Plan: Continue home medications
[2020-06-06] MEDS: DILAUDID INJ IVP PRN ×5 (01:12→11:39)
[2020-06-06] MEDS: NS 1000 ML 1,000 ML IV SCH ×2 (04:45→17:01)
[2020-06-06] MEDS: ZOSYN VIAL 4.5 GRAMS 4.5 G in NS 100 ML IV + SPIKE MINIBAG* 100 ML IV SCH ×4 (05:19→21:28)
[2020-06-06] MEDS: PULMICORT NEB TX 0.5 MG NEB SCH ×2 (09:15→21:01)
[2020-06-06] MEDS: DUONEB 0.5 MG/3 MG (3 mL) NEB SCH ×4 (09:15→21:00)
[2020-06-06] MEDS: COREG TAB 6.25 MG PO SCH ×2 (11:56→21:28)
[2020-06-06] MEDS: ASPIRIN 81 MG CHEWTAB PO SCH (11:56)
[2020-06-06] MEDS: NEURONTIN CAP 400 MG PO SCH ×2 (11:57→21:28)
[2020-06-06] MEDS: SANTYL EXT SCH (11:59)
[2020-06-06] MEDS: PROTONIX TAB 40 MG PO SCH (11:59)
[2020-06-06] MEDS ORDERED: HEPARIN SODIUM INJ 5000 UNITS ONE ×3 (12:18→13:39)
[2020-06-06] MEDS ORDERED: HEPARIN SODIUM IN D5W 25,000 UNITS/500 ML BAG IV ONE ×3 (12:19→14:42)
[2020-06-06] MEDS ORDERED: XYLOCAINE 1 % (PLAIN) ONE (12:22)
[2020-06-06] MEDS ORDERED: BETADINE SOLN ONE (12:22)
[2020-06-06] MEDS ORDERED: MARCAINE/EPINEPHRINE ONE (12:22)
[2020-06-06] MEDS ORDERED: NS 1000 ML 1,000 ML ONE (12:22)
[2020-06-06] MEDS ORDERED: FENTANYL INJ 100 mcg ONE (12:34)
[2020-06-06] MEDS ORDERED: ANCEF 1 GRAM IV PREMIX* 1 G/50 ML BAG IV ONE (12:38)
[2020-06-06] MEDS ORDERED: VERSED ONE (12:40)
[2020-06-06] MEDS ORDERED: DIPRIVAN VIAL ONE (12:40)
[2020-06-06] MEDS ORDERED: EPHEDRINE SULFATE INJ ONE (12:40)
[2020-06-06] MEDS ORDERED: NITROGLYCERIN IV PREMIX 50 MG 50 MG/250 ML BAG IV PRN (13:56)
[2020-06-06] MEDS ORDERED: DIPRIVAN VIAL 20 ML ONE ×2 (14:19)
[2020-06-06] MEDS ORDERED: NS 1000 ML 1,000 ML IV ONE ×2 (16:25→16:45)
--- NOTE | 2020-06-06 16:36 | OR.IMMED ---
IMMEDIATE POST-OP NOTE Immediate Post-Op Note Pre-Op Diagnosis: limb threatening ischemia right LE Post-Op Diagnosis: Same, completely occluded left SFA secondary to occluded stacked stents Procedure: On table A-gram left leg via fem-fem graft with balloon angioplasty of the left PT artery, Drug coated balloon angioplasty of the left popliteal and left SFA arteries and debridement eschar dorsum left foot and place wound vacuum Findings: as above Specimens Removed: eschar left foot Complications: none Discharge Progress Notes: Patient returned to the floor Condition: Stable Final Diagnosis: Limb threatening ischemia left leg
[2020-06-06] MEDS ORDERED: NS 1000 ML 2,000 ML IV ONE (16:46)
[2020-06-06] MEDS ORDERED: PLAVIX PO ONE (16:50)
--- NOTE | 2020-06-06 20:50 | DR.OPNOTE ---
OP NOTE Pre-Op Diagnosis: Critical limb threatening ischemia left lower extremity Post-Op Diagnosis: Same Procedure: Patient taken to OR and placed in the supine position and given IV sedation and the left leg and the abdomen prepped and draped in sterile fashion and then time out for the procedure obtained . Skin over the midportion of the femoral -femoral bypass graft infiltrated with 0.5% Marcaine and under ultrasound guidance the graft was punctured with an 18 gauge needle and a 0.014 inch guidewire passed and a micro puncture sheath passed over the 0.014 inch wire which was removed and exchanged for a 0.035 inch Advantage Vardaman wire . The micro puncture sheath removed and and exchanged for a 5 Fr sheath. Arteriogram was done showing complete occlusion of the takeoff of the superficial femoral artery and this engaged with a 0.018 inch guidewire and then a Trailblazer catheter placed over the wire and the two used to advance the wire into the popliteal artery and then into the posterior tibial artery which was confirmed by on table arteriogram showing spasm vs stenosis of the posterior tibial artery at the ankle. A 2.5 mm x 80cm balloon was inflated for one minute and then removed and repeat arteriogram showed resolution of this area of the distal posterior tibial artery. The proximal posterior tibial artery , popliteal artery, superficial femoral artery and common femoral artery were all pre-dilated with a 3.5 x 220 mm [employer] angioplasty balloon holding open for 1 minute each .The popliteal artery then ballooned open with a 5 mm x 200 mm drug coated balloon, the superficial femoral artery ballooned open with a 6mm x 200 mm drug coated balloon, and the common femoral artery ballooned open with a 6mmx 150 mm drug coated balloon. Each drug coated balloon was inflated for 3 minutes. Arteriography then carried out showing contiguous flow from the femoral - femoral graft to the foot via the posterior tibial artery with cross filling of the dorsalis pedis. The anterior tibial artery is completely occluded at its takeoff from the popliteal artery. At the beginning of the case the patient was heparinized with 5000 units of heparin and again bolused with 3000 units heparin 1 hour after that , and another 2000 units of heparin at 2 hrs. The sheath was removed from the femoral -femoral graft and the subcutaneous tissue closed with vertical mattress sutures x 2 and then with Surgicel and direct pressure. Excellent doppler signa present l in the left posterior tibial artery at the ankle which was not there pre-op. The left foot was now warm. The patient was given a total of 30 mg of IV Protamine. The left foot was then prepped and draped and the dark eschar measuring 6x5 x 0.5 cm excised with a # 15 blade knife. . Hemostasis obtained with electrocautery. JERALD wound vacuum applied to the open wound and the JERALD place on suction. The patient was taken back to the second floor. Findings: As above Specimen/Pathology: Eschar from dorsal left foot Type of Fluids Used:: Lactated Ringers Total Amount of Fluid Infused:: 900 cc Urine output: 1600 cc EBL: 100 cc Drains/Tubes Placed: Perera ( Perera placed at beginning of the case and removed at the end of the case.) Complications:: none Needle/Sponge Count:: correct Disposition/Condition: Taken back to the second floor
[2020-06-06 20:55] LABS: BASOPHILS # (AUTO) 0.2 X10^3/uL (0.0-0.1); BASOPHILS % (AUTO) 1.5 % (0.2-1.0); EOSINOPHILS % (AUTO) 0.1 % (0.9-2.9); HEMATOCRIT 42.1 % (42.0-54.0); HEMOGLOBIN 14.3 g/dL (13.5-18.0); LYMPHOCYTES # (AUTO) 0.9 X10^3/uL (1.3-2.9); LYMPHOCYTES % (AUTO) 6.8 % (21.0-51.0); MEAN CORPUSCULAR HEMOGLOBIN 30.8 pg (27.0-34.0); MEAN CORPUSCULAR HGB CONC 33.9 g/dL (33.0-35.0); MONOCYTES # (AUTO) 0.8 x10^3/uL (0.3-0.8); MONOCYTES % (AUTO) 5.7 % (0.0-13.0); NEUTROPHILS # (AUTO) 11.5 x10^3/uL (2.2-4.8); NEUTROPHILS % (AUTO) 85.9 % (42.0-75.0); PLATELET COUNT 283 X10^3/uL (150.0-450.0); RED BLOOD COUNT 4.63 X10^6/uL (4.7-6.0); RED CELL DISTRIBUTION WIDTH 12.9 % (11.6-16.5); WHITE BLOOD COUNT 13.4 X10^3/uL (3.6-10.0)
[2020-06-06 21:12] LABS: CREATINE KINASE MB 1.1 ng/mL (0-4.0)
[2020-06-06 21:27] LABS: BAND NEUTROPHILS % 5 % (0-10)
[2020-06-06 21:28] LABS: PLATELET MORPHOLOGY COMMENT NORMAL (NORMAL); TOXIC GRANULATION SLIGHT
[2020-06-06] MEDS: NICOTINE PATCH TD SCH (21:28)
[2020-06-06] MEDS: PERCOCET TAB 5/325 MG PO PRN (21:29)
--- NOTE | 2020-06-06 22:55 | PCM.PROG ---
Progress Note Subjective Subjective: See H& P. Had LE duplex and CTA of aorta with b/l runoff. Doppler shows both right fem-pop bypass and [place] left SFA at site of distal stent occluded with poor runoff b/l and fem - fem graft is patent ( done originally for occluded right external iliac artery). Has necrotic eschar of dorsum left foot following left transmetatarsal amputation several months ago with cellulitis. 06/06/2020 S/P peripheral revascularization of left leg earlier today and called because he had bradycardia an BP of 80 mm systolic . Transferred to the ICU and labs ordered. I examined the patient and he has mild tachycardia with BP of 130/60 and ECG with no ischemic changes , Hgb 14.3 , CK-MB normalat 1.1 with BNP elevated at 1090. Not SOB . Left foot warm and has excellent doppler signal in the left posterior tibial artery and I can now hear a signal in the left dorsalis pedis. Past Medical Family Social History Allergies: Allergies Vitkrxe-Oeh-Cfx Reductase Inhibitor Allergy (Verified 06/03/20 21:56) Vital Signs and I&O's Vital Signs: Temperature 98.5 F Pulse Rate [Left Brachial] 111 Pulse Rate 108 Respiratory Rate 24 Blood Pressure [Right Arm] 98/65 Blood Pressure [Left Arm] 116/58 Blood Pressure 98/62 O2 Sat by Pulse Oximetry 99 Intake and Output: Intake & Output 06/03/20 06/04/20 06/05/20 06/06/20 23:59 23:59 23:59 23:59 Intake Total 2920 / 2920 2960 / 2960 2720 / 2720 Output Total 725 / 725 2725 / 2725 3525 / 3525 Balance 2195 / 2195 235 / 235 -805 / -805 Physical Exam Oriented: Normal, Time and Place Eyes: Normal Ear: Normal Nose: Normal Throat: Normal Cardiovascular: Normal : Normal Auscultation: Bowel Sounds: Normal Tenderness: Normal Skin: Wound (5x 5 cm dark eschar dorsum left foot with cellulitis , healed right transmetatarsal amputation. Not much change in the redness and may represent more rubor of ischemia than cellulitis. ) and Other Speech Pattern: Clear and Appropriate Laboratory and Diagnostics Result Diagrams: 06/06/20 20:36 06/04/20 05:19 Labs: 06/04/20 00:25 Blood Blood Culture - Preliminary 06/04/20 00:18 Blood Blood Culture - Preliminary Laboratory WBC 13.4 X10^3/uL (3.6-10.0) H 06/06/20 20:36 RBC 4.63 X10^6/uL (4.7-6.0) L 06/06/20 20:36 Hgb 14.3 g/dL (13.5-18.0) 06/06/20 20:36 Hct 42.1 % (42.0-54.0) 06/06/20 20:36 MCV 91.0 fL (80.0-100.0) 06/06/20 20:36 MCH 30.8 pg (27.0-34.0) 06/06/20 20:36 MCHC 33.9 g/dL (33.0-35.0) 06/06/20 20:36 RDW 12.9 % (11.6-16.5) 06/06/20 20:36 Plt Count 283 X10^3/uL (150.0-450.0) 06/06/20 20:36 Plt Count Comment Adequate (ADEQUATE) 06/06/20 20:36 MPV 8.0 fL (7.4-11.0) 06/06/20 20:36 Neut % (Auto) 85.9 % (42.0-75.0) H 06/06/20 20:36 Lymph % (Auto) 6.8 % (21.0-51.0) L 06/06/20 20:36 [place] % (Auto) 5.7 % (0.0-13.0) 06/06/20 20:36 Eos % (Auto) 0.1 % (0.9-2.9) L 06/06/20 20:36 Baso % (Auto) 1.5 % (0.2-1.0) H 06/06/20 20:36 Neut # (Auto) 11.5 x10^3/uL (2.2-4.8) H 06/06/20 20:36 Lymph # (Auto) 0.9 X10^3/uL (1.3-2.9) L 06/06/20 20:36 [place] # (Auto) 0.8 x10^3/uL (0.3-0.8) 06/06/20 20:36 Eos # (Auto) 0.0 x10^3/uL (0.0-0.2) 06/06/20 20:36 Baso # (Auto) 0.2 X10^3/uL (0.0-0.1) H 06/06/20 20:36 Absolute Nucleated RBC 0.0 /100WBC 06/06/20 20:36 Total Counted 100 06/06/20 20:36 Neutrophils % (Manual) 83 % (39-76) H 06/06/20 20:36 Band Neutrophils % 5 % (0-10) 06/06/20 20:36 Lymphocytes % (Manual) 9 % (13-43) L 06/06/20 20:36 Monocytes % (Manual) 3 % (4-9) L 06/06/20 20:36 Toxic Granulation Slight A 06/06/20 20:36 Giant Platelets Occasional 06/03/20 21:20 Plt Morphology Comment Normal (NORMAL) 06/06/20 20:36 RBC Morphology Normal (NORMAL) 06/06/20 20:36 Anisocytosis Slight A 06/03/20 21:20 Sodium 137 mmol/L (136-145) 06/04/20 05:19 Corrected Sodium 139 mmol/L (136-145) 06/04/20 05:19 Potassium 3.9 mmol/L (3.5-5.1) 06/04/20 05:19 Chloride 101 mmol/L (98-107) 06/04/20 05:19 Carbon Dioxide 26.8 mmol/L (21-32) 06/04/20 05:19 BUN 12 mg/dL (7-18) 06/04/20 05:19 Creatinine 0.91 mg/dL (0.70-1.30) 06/04/20 05:19 Est GFR (MDRD) Af Amer > 60 (>60) 06/04/20 05:19 Est GFR (MDRD) Non-Af > 60 (>60) 06/04/20 05:19 Glucose 173 mg/dL (65-99) H 06/04/20 05:19 POC Glucose (mg/dL) 135 mg/dL (65-99) H 06/06/20 20:26 Hemoglobin A1c 8.4 % 06/04/20 05:19 Calcium 9.0 mg/dL (8.5-10.1) 06/04/20 05:19 Corrected Calcium 10.3 mg/dL (8.5-10.1) H 06/04/20 05:19 Total Bilirubin 0.50 mg/dL (0.2-1.0) 06/04/20 05:19 AST 17 Units/L (15-37) 06/04/20 05:19 ALT 32 Units/L (12-78) 06/04/20 05:19 Alkaline Phosphatase 100 Units/L (46-116) 06/04/20 05:19 CK-MB (CK-2) 1.1 ng/mL (0-4.0) 06/06/20 20:36 B-Natriuretic Peptide 1090 pg/mL (0-79) H* 06/06/20 20:36 Total Protein 6.5 g/dL (6.4-8.2) 06/04/20 05:19 Albumin 2.4 g/dL (3.4-5.0) L 06/04/20 05:19 Globulin 4.1 g/dL (2.5-4.5) 06/04/20 05:19 Albumin/Globulin Ratio 0.6 Ratio (1.1-2.1) L 06/04/20 05:19 Specimen Type Clean catch urine 06/04/20 00:18 Urine Color Evita (YELLOW) 06/04/20 00:18 Urine Appearance Clear (CLEAR) 06/04/20 00:18 Urine pH 5.0 (5.0 - 8.0) 06/04/20 00:18 Ur Specific [place] 1.025 (1.000-1.030) 06/04/20 00:18 Urine Protein 2+ (NEGATIVE) 06/04/20 00:18 Urine Glucose (UA) 4+ (NEGATIVE) 06/04/20 00:18 Urine Ketones Negative (NEGATIVE) 06/04/20 00:18 Urine Occult Blood 1+ (NEGATIVE) 06/04/20 00:18 Urine Nitrite Negative (NEGATIVE) 06/04/20 00:18 Urine Bilirubin Negative (NEGATIVE) 06/04/20 00:18 Urine Urobilinogen 2+ (NORMAL) 06/04/20 00:18 Ur Leukocyte Esterase 1+ (NEGATIVE) 06/04/20 00:18 Urine RBC 0-2 /HPF (0-3) 06/04/20 00:18 Urine WBC 0-2 /HPF (0-5) 06/04/20 00:18 Ur Squamous Epith Cells Few /HPF (NEGATIVE) 06/04/20 00:18 Urine Bacteria Trace /HPF (NEGATIVE) 06/04/20 00:18 Urine Mucus Moderate /HPF (NEGATIVE) 06/04/20 00:18 Ur Culture Indicated? No/not indicated 06/04/20 00:18 SARS CoV-2 RNA Rapid ROGERS Negative (NEGATIVE) 06/03/20 21:50 EKG Reviewed: Yes ( no acute ischemic changes ) Rhythm: ST Plan (1) Tobacco abuse: Status: Acute Plan: Nicotine patch, counseling of risk of smoking and limb loss (2) Critical ischemia of foot: Status: Acute Narrative Support Text: Will contuue to observe . May require diuretics but I will wait until he has no further hypotension. May require cardiac ECHO. Am labs . Plan: Will attempt atherectomy and drug coated balloon angioplasty of the left leg and possible angioplasty distally . If this fails will need femoral tibial bypass as a back-up plan. Have discussed risks of bleeding, infection, limb loss and . Approximately 70 % chance of success with peripheral intervention. I have explained to both he and his daughter that I have done many such cases but this will be my first one in this location in [facility]. Our staff is trained and experienced with surgery but this is the first actual case of this type they have done. They bothn understand and agree to proceed. Scheduled to done tomorrow at noon. (3) Ulcer of left medial lower extremity with necrosis of muscle: Status: Acute Plan: See above. Will treat with IV antibiotics and Santyl. (4) Partial nontraumatic amputation of left foot: Status: Acute Plan: See above (5) Diabetes mellitus: Status: Acute Qualifiers: Diabetes mellitus complication detail: with foot ulcer Diabetes mellitu s complication status: with skin complications Diabetes mellitus program advocate insulin use: with program advocate use Diabetes mellitus type: type 2 Qualified Code(s): E11.621 - Type 2 diabetes mellitus with foot ulcer; L97.509 - Non- pressure chronic ulcer of other part of unspecified foot with unspecified severity; Z79.4 - longterm (current) use of insulin Plan: Sliding scale insulin now, check Hgb A1c (6) Hypertension: Status: Acute Qualifiers: Hypertension type: essential hypertension Qualified Code(s): I10 - E ssential (primary) hypertension Plan: Continue home medications (7) GERD (gastroesophageal reflux disease): Status: Acute Qualifiers: Esophagitis presence: esophagitis presence not specified Qualified Code(s): K21.9 - Gastro-esophageal reflux disease without esophagitis Plan: Continue home medications
[2020-06-06] MEDS: FLEXERIL TAB 10 MG PO PRN (23:09)
[2020-06-07] MEDS: DILAUDID INJ IVP PRN ×6 (00:51→23:55)
[2020-06-07] MEDS: PERCOCET TAB 5/325 MG PO PRN ×3 (03:40→20:00)
[2020-06-07 05:11] LABS: BLOOD UREA NITROGEN 6 mg/dL (7-18); CALCIUM 8.6 mg/dL (8.5-10.1); CARBON DIOXIDE 27.4 mmol/L (21-32); CHLORIDE 102 mmol/L (98-107); COR NA(FOR HYPERGLY) 140 mmol/L (136-145); CREATININE 0.94 mg/dL (0.70-1.30); SODIUM 139 mmol/L (136-145); eGFR NON BLACK RACES > 60 (>60)
[2020-06-07] MEDS: ZOSYN VIAL 4.5 GRAMS 4.5 G in NS 100 ML IV + SPIKE MINIBAG* 100 ML IV SCH ×3 (06:00→21:26)
--- NOTE | 2020-06-07 06:15 | RAD ---
HISTORYINCREASED BNP, TACHYCARDIASTUDYCHEST, 1 [id number] view of the chestFINDINGSPost median sternotomy. Cardiac and mediastinal contours are within normal limits. Mild linear bibasilar opacities consistent with subsegmental atelectasis. No consolidation. No pleural effusion or pneumothorax.IMPRESSIONMild bibasilar subsegmental atelectasis.Electronically signed by: Yossi Brown (Jun 07, 2020 06:13:23)
[2020-06-07] MEDS: NS 1000 ML 1,000 ML IV SCH (07:40)
[2020-06-07] MEDS: ASPIRIN 81 MG CHEWTAB PO SCH (08:30)
[2020-06-07] MEDS: COREG TAB 6.25 MG PO SCH ×3 (08:31→20:01)
[2020-06-07] MEDS: PLAVIX PO SCH (08:31)
[2020-06-07] MEDS: NEURONTIN CAP 400 MG PO SCH ×2 (08:32→20:00)
[2020-06-07] MEDS: PROTONIX TAB 40 MG PO SCH (08:32)
[2020-06-07] MEDS ORDERED: PLAVIX PO SCH (09:00)
[2020-06-07] MEDS: DUONEB 0.5 MG/3 MG (3 mL) NEB SCH ×4 (09:27→20:56)
[2020-06-07] MEDS: PULMICORT NEB TX 0.5 MG NEB SCH ×2 (09:27→20:56)
[2020-06-07] MEDS: HumuLIN R SUBCUT PRN ×3 (12:16→20:01)
[2020-06-07] MEDS ORDERED: LASIX IVP ONE (13:06)
--- NOTE | 2020-06-07 13:25 | PCM.PROG ---
Progress Note Subjective Subjective: See H& P. Had LE duplex and CTA of aorta with b/l runoff. Doppler shows both right fem-pop bypass and [place] left SFA at site of distal stent occluded with poor runoff b/l and fem - fem graft is patent ( done originally for occluded right external iliac artery). Has necrotic eschar of dorsum left foot following left transmetatarsal amputation several months ago with cellulitis. 06/06/2020 S/P peripheral revascularization of left leg earlier today and called because he had bradycardia an BP of 80 mm systolic . Transferred to the ICU and labs ordered. I examined the patient and he has mild tachycardia with BP of 130/60 and ECG with no ischemic changes , Hgb 14.3 , CK-MB normal at 1.1 with BNP elevated at 1090. Not SOB . Left foot warm and has excellent doppler signal in the left posterior tibial artery and I can now hear a signal in the left dorsalis pedis. 06/07/20 POD # 1 after revascularization left foot for poorly healing transmetatarsal amputation with drug coated balloon angioplasty of the left popliteal and left SFA intrastent occlusion and angioplasty left PT artery with excellent result and warm left foot with excellent posterior tibial doppler signal. Also had excisional debridement of the left dorsal foot and placement of JERALD wound Vacuum system. Post op had some hypotension and bradycardia which have resolved with only mild hypotension . EKG with no ischemia, CK-MB negative. Foot remains warm. BNP elevated at 1090 but has not overt clinical evidence of heart failure . ECHO done today shows EF of 61 % with no evidence chamber failure but does show significant aortic sclerosis. Past Medical Family Social History Allergies: Allergies Agkzjzj-Zpj-Oro Reductase Inhibitor Allergy (Verified 06/03/20 21:56) Vital Signs and I&O's Vital Signs: Temperature 99.4 F Pulse Rate [Left Brachial] 96 Pulse Rate 83 Respiratory Rate 24 Blood Pressure [Right Arm] 94/57 Blood Pressure [Left Arm] 116/58 Blood Pressure 109/56 O2 Sat by Pulse Oximetry 97 Intake and Output: Intake & Output 06/04/20 06/05/20 06/06/20 06/07/20 23:59 23:59 23:59 23:59 Intake Total 2920 / 2920 2960 / 2960 5628 / 5628 522 / 522 Output Total 725 / 725 2725 / 2725 3825 / 3825 350 / 350 Balance 2195 / 2195 235 / 235 1803 / 1803 172 / 172 Physical Exam Oriented: Normal, Time and Place Eyes: Normal Ear: Normal Nose: Normal Throat: Normal Cardiovascular: Normal : Normal Auscultation: Bowel Sounds: Normal Tenderness: Normal Skin: Wound (5x 5 cm dark eschar dorsum left foot with cellulitis , healed right transmetatarsal amputation. Not much change in the redness and may represent more rubor of ischemia than cellulitis. ) and Other Speech Pattern: Clear and Appropriate Laboratory and Diagnostics Result Diagrams: 06/06/20 20:36 06/07/20 04:20 Labs: 06/04/20 00:25 Blood Blood Culture - Preliminary 06/04/20 00:18 Blood Blood Culture - Preliminary Laboratory WBC 13.4 X10^3/uL (3.6-10.0) H 06/06/20 20:36 RBC 4.63 X10^6/uL (4.7-6.0) L 06/06/20 20:36 Hgb 14.3 g/dL (13.5-18.0) 06/06/20 20:36 Hct 42.1 % (42.0-54.0) 06/06/20 20:36 MCV 91.0 fL (80.0-100.0) 06/06/20 20:36 MCH 30.8 pg (27.0-34.0) 06/06/20 20:36 MCHC 33.9 g/dL (33.0-35.0) 06/06/20 20:36 RDW 12.9 % (11.6-16.5) 06/06/20 20:36 Plt Count 283 X10^3/uL (150.0-450.0) 06/06/20 20:36 Plt Count Comment Adequate (ADEQUATE) 06/06/20 20:36 MPV 8.0 fL (7.4-11.0) 06/06/20 20:36 Neut % (Auto) 85.9 % (42.0-75.0) H 06/06/20 20:36 Lymph % (Auto) 6.8 % (21.0-51.0) L 06/06/20 20:36 [place] % (Auto) 5.7 % (0.0-13.0) 06/06/20 20:36 Eos % (Auto) 0.1 % (0.9-2.9) L 06/06/20 20:36 Baso % (Auto) 1.5 % (0.2-1.0) H 06/06/20 20:36 Neut # (Auto) 11.5 x10^3/uL (2.2-4.8) H 06/06/20 20:36 Lymph # (Auto) 0.9 X10^3/uL (1.3-2.9) L 06/06/20 20:36 [place] # (Auto) 0.8 x10^3/uL (0.3-0.8) 06/06/20 20:36 Eos # (Auto) 0.0 x10^3/uL (0.0-0.2) 06/06/20 20:36 Baso # (Auto) 0.2 X10^3/uL (0.0-0.1) H 06/06/20 20:36 Absolute Nucleated RBC 0.0 /100WBC 06/06/20 20:36 Total Counted 100 06/06/20 20:36 Neutrophils % (Manual) 83 % (39-76) H 06/06/20 20:36 Band Neutrophils % 5 % (0-10) 06/06/20 20:36 Lymphocytes % (Manual) 9 % (13-43) L 06/06/20 20:36 Monocytes % (Manual) 3 % (4-9) L 06/06/20 20:36 Toxic Granulation Slight A 06/06/20 20:36 Giant Platelets Occasional 06/03/20 21:20 Plt Morphology Comment Normal (NORMAL) 06/06/20 20:36 RBC Morphology Normal (NORMAL) 06/06/20 20:36 Anisocytosis Slight A 06/03/20 21:20 Sodium 139 mmol/L (136-145) 06/07/20 04:20 Corrected Sodium 140 mmol/L (136-145) 06/07/20 04:20 Potassium 3.5 mmol/L (3.5-5.1) 06/07/20 04:20 Chloride 102 mmol/L (98-107) 06/07/20 04:20 Carbon Dioxide 27.4 mmol/L (21-32) 06/07/20 04:20 BUN 6 mg/dL (7-18) L 06/07/20 04:20 Creatinine 0.94 mg/dL (0.70-1.30) 06/07/20 04:20 Est GFR (MDRD) Af Amer > 60 (>60) 06/07/20 04:20 Est GFR (MDRD) Non-Af > 60 (>60) 06/07/20 04:20 Glucose 139 mg/dL (65-99) H 06/07/20 04:20 POC Glucose (mg/dL) 225 mg/dL (65-99) H 06/07/20 12:10 Hemoglobin A1c 8.4 % 06/04/20 05:19 Calcium 8.6 mg/dL (8.5-10.1) 06/07/20 04:20 Corrected Calcium 10.3 mg/dL (8.5-10.1) H 06/04/20 05:19 Total Bilirubin 0.50 mg/dL (0.2-1.0) 06/04/20 05:19 AST 17 Units/L (15-37) 06/04/20 05:19 ALT 32 Units/L (12-78) 06/04/20 05:19 Alkaline Phosphatase 100 Units/L (46-116) 06/04/20 05:19 CK-MB (CK-2) 1.1 ng/mL (0-4.0) 06/06/20 20:36 B-Natriuretic Peptide 922 pg/mL (0-79) H* 06/07/20 04:20 Total Protein 6.5 g/dL (6.4-8.2) 06/04/20 05:19 Albumin 2.4 g/dL (3.4-5.0) L 06/04/20 05:19 Globulin 4.1 g/dL (2.5-4.5) 06/04/20 05:19 Albumin/Globulin Ratio 0.6 Ratio (1.1-2.1) L 06/04/20 05:19 Specimen Type Clean catch urine 06/04/20 00:18 Urine Color Evita (YELLOW) 06/04/20 00:18 Urine Appearance Clear (CLEAR) 06/04/20 00:18 Urine pH 5.0 (5.0 - 8.0) 06/04/20 00:18 Ur Specific [place] 1.025 (1.000-1.030) 06/04/20 00:18 Urine Protein 2+ (NEGATIVE) 06/04/20 00:18 Urine Glucose (UA) 4+ (NEGATIVE) 06/04/20 00:18 Urine Ketones Negative (NEGATIVE) 06/04/20 00:18 Urine Occult Blood 1+ (NEGATIVE) 06/04/20 00:18 Urine Nitrite Negative (NEGATIVE) 06/04/20 00:18 Urine Bilirubin Negative (NEGATIVE) 06/04/20 00:18 Urine Urobilinogen 2+ (NORMAL) 06/04/20 00:18 Ur Leukocyte Esterase 1+ (NEGATIVE) 06/04/20 00:18 Urine RBC 0-2 /HPF (0-3) 06/04/20 00:18 Urine WBC 0-2 /HPF (0-5) 06/04/20 00:18 Ur Squamous Epith Cells Few /HPF (NEGATIVE) 06/04/20 00:18 Urine Bacteria Trace /HPF (NEGATIVE) 06/04/20 00:18 Urine Mucus Moderate /HPF (NEGATIVE) 06/04/20 00:18 Ur Culture Indicated? No/not indicated 06/04/20 00:18 SARS CoV-2 RNA Rapid ROGERS Negative (NEGATIVE) 06/03/20 21:50 Plan (1) Tobacco abuse: Status: Acute Plan: Nicotine patch, counseling of risk of smoking and limb loss (2) Critical ischemia of foot: Status: Acute Plan: Will attempt atherectomy and drug coated balloon angioplasty of the left leg and possible angioplasty distally . If this fails will need femoral tibial bypass as a back-up plan. Have discussed risks of bleeding, infection, limb loss and . Approximately 70 % chance of success with peripheral intervention. I have explained to both he and his daughter that I have done many such cases but this will be my first one in this location in [facility]. Our staff is trained and experienced with surgery but this is the first actual case of this type they have done. They both understand and agree to proceed. Scheduled to done tomorrow at noon. 06/07/20 Excellent result after revascularization of the left leg as above. Will give 40 mg IV Lasix. Hold IVFs. Follow left leg clinically and continue Plavix . Change wound vacuum next week. (3) Ulcer of left medial lower extremity with necrosis of muscle: Status: Acute Plan: See above. Will treat with IV antibiotics and Santyl. (4) Partial nontraumatic amputation of left foot: Status: Acute Plan: See above (5) Diabetes mellitus: Status: Acute Qualifiers: Diabetes mellitus complication detail: with foot ulcer Diabetes mellitus complication status: with skin complications Diabetes mellitus intermediate project manager insulin use: with intermediate project manager use Diabetes mellitus type: type 2 Qualified Code(s): E11.621 - Type 2 diabetes mellitus with foot ulcer; L97.509 - Non- pressure chronic ulcer of other part of unspecified foot with unspecified severity; Z79.4 - intermediate project manager (current) use of insulin Plan: Sliding scale insulin now, check Hgb A1c (6) Hypertension: Status: Acute Qualifiers: Hypertension type: essential hypertension Qualified Code(s): I10 - Essential (primary) hypertension Plan: Continue home medications (7) GERD (gastroesophageal reflux disease): Status: Acute Qualifiers: Esophagitis presence: esophagitis presence not specified Qualified Code(s): K21.9 - Gastro-esophageal reflux disease without esophagitis Plan: Continue home medications
[2020-06-07] MEDS: NICOTINE PATCH TD SCH (20:00)
[2020-06-07] MEDS: FLEXERIL TAB 10 MG PO PRN (20:01)
[2020-06-08] MEDS: DILAUDID INJ IVP PRN ×6 (03:29→23:27)
[2020-06-08] MEDS: ZOSYN VIAL 4.5 GRAMS 4.5 G in NS 100 ML IV + SPIKE MINIBAG* 100 ML IV SCH ×3 (06:07→21:11)
[2020-06-08] MEDS: PERCOCET TAB 5/325 MG PO PRN ×2 (06:22→21:15)
[2020-06-08] MEDS: DUONEB 0.5 MG/3 MG (3 mL) NEB SCH ×4 (08:36→23:16)
[2020-06-08] MEDS: PULMICORT NEB TX 0.5 MG NEB SCH ×2 (08:37→23:16)
[2020-06-08] MEDS: ASPIRIN 81 MG CHEWTAB PO SCH (09:02)
[2020-06-08] MEDS: PLAVIX PO SCH (09:03)
[2020-06-08] MEDS: COREG TAB 6.25 MG PO SCH ×2 (09:03→20:18)
[2020-06-08] MEDS: NEURONTIN CAP 400 MG PO SCH ×2 (09:03→20:17)
[2020-06-08] MEDS: LOVENOX INJ 40 MG SYR SC SCH (09:04)
[2020-06-08] MEDS: PROTONIX TAB 40 MG PO SCH (09:06)
[2020-06-08] MEDS: HumuLIN R SUBCUT PRN ×2 (12:45→16:28)
--- NOTE | 2020-06-08 14:51 | PCM.PROG ---
Progress Note Subjective Subjective: See H& P. Had LE duplex and CTA of aorta with b/l runoff. Doppler shows both right fem-pop bypass and [place] left SFA at site of distal stent occluded with poor runoff b/l and fem - fem graft is patent ( done originally for occluded right external iliac artery). Has necrotic eschar of dorsum left foot following left transmetatarsal amputation several months ago with cellulitis. 06/06/2020 S/P peripheral revascularization of left leg earlier today and called because he had bradycardia an BP of 80 mm systolic . Transferred to the ICU and labs ordered. I examined the patient and he has mild tachycardia with BP of 130/60 and ECG with no ischemic changes , Hgb 14.3 , CK-MB normal at 1.1 with BNP elevated at 1090. Not SOB . Left foot warm and has excellent doppler signal in the left posterior tibial artery and I can now hear a signal in the left dorsalis pedis. 06/07/20 POD # 1 after revascularization left foot for poorly healing transmetatarsal amputation with drug coated balloon angioplasty of the left popliteal and left SFA intrastent occlusion and angioplasty left PT artery with excellent result and warm left foot with excellent posterior tibial doppler signal. Also had excisional debridement of the left dorsal foot and placement of JERALD wound Vacuum system. Post op had some hypotension and bradycardia which have resolved with only mild hypotension . EKG with no ischemia, CK-MB negative. Foot remains warm. BNP elevated at 1090 but has not overt clinical evidence of heart failure . ECHO done today shows EF of 61 % with no evidence chamber failure but does show significant aortic sclerosis. 06/08/2020 Doing well, Only mildly hypotensive with administration of IV Dilaudid. Good result from the IV Lasix. Past Medical Family Social History Past Med/Fam/Surg Hx: No changes since H&P Allergies: Allergies Ajjyddr-Qtm-Fft Reductase Inhibitor Allergy (Verified 06/03/20 21:56) Vital Signs and I&O's Vital Signs: Temperature 98.3 F Pulse Rate [Left Brachial] 96 Pulse Rate 75 Respiratory Rate 23 Blood Pressure [Right Arm] 94/57 Blood Pressure [Left Arm] 116/58 Blood Pressure 108/62 O2 Sat by Pulse Oximetry 98 Intake and Output: Intake & Output 06/05/20 06/06/20 06/07/20 06/08/20 23:59 23:59 23:59 23:59 Intake Total 2960 / 2960 5628 / 5628 1639 / 1639 251 / 251 Output Total 2725 / 2725 3825 / 3825 1300 / 1300 725 / 725 Balance 235 / 235 1803 / 1803 339 / 339 -474 / -474 Physical Exam Oriented: Normal, Time and Place Eyes: Normal Ear: Normal Nose: Normal Throat: Normal Cardiovascular: Normal and Other (Excellent doppler signal in the left posterior tibial and now nowhear flow in the left anterior tibial artery as well. ) : Normal Auscultation: Bowel Sounds: Normal Tenderness: Normal Skin: Wound ( S/p debridement of the dorsum left foot is improving.All redness now reolved Wound is 6x6x0.7 cm of the dorsum left foot with duskiness of the distal partof the left transmetatarsal flap.) and Other Speech Pattern: Clear and Appropriate Laboratory and Diagnostics Result Diagrams: 06/06/20 20:36 06/07/20 04:20 Labs: 06/04/20 00:25 Blood Blood Culture - Preliminary 06/04/20 00:18 Blood Blood Culture - Preliminary Laboratory WBC 13.4 X10^3/uL (3.6-10.0) H 06/06/20 20:36 RBC 4.63 X10^6/uL (4.7-6.0) L 06/06/20 20:36 Hgb 14.3 g/dL (13.5-18.0) 06/06/20 20:36 Hct 42.1 % (42.0-54.0) 06/06/20 20:36 MCV 91.0 fL (80.0-100.0) 06/06/20 20:36 MCH 30.8 pg (27.0-34.0) 06/06/20 20:36 MCHC 33.9 g/dL (33.0-35.0) 06/06/20 20:36 RDW 12.9 % (11.6-16.5) 06/06/20 20:36 Plt Count 283 X10^3/uL (150.0-450.0) 06/06/20 20:36 Plt Count Comment Adequate (ADEQUATE) 06/06/20 20:36 MPV 8.0 fL (7.4-11.0) 06/06/20 20:36 Neut % (Auto) 85.9 % (42.0-75.0) H 06/06/20 20:36 Lymph % (Auto) 6.8 % (21.0-51.0) L 06/06/20 20:36 [place] % (Auto) 5.7 % (0.0-13.0) 06/06/20 20:36 Eos % (Auto) 0.1 % (0.9-2.9) L 06/06/20 20:36 Baso % (Auto) 1.5 % (0.2-1.0) H 06/06/20 20:36 Neut # (Auto) 11.5 x10^3/uL (2.2-4.8) H 06/06/20 20:36 Lymph # (Auto) 0.9 X10^3/uL (1.3-2.9) L 06/06/20 20:36 [place] # (Auto) 0.8 x10^3/uL (0.3-0.8) 06/06/20 20:36 Eos # (Auto) 0.0 x10^3/uL (0.0-0.2) 06/06/20 20:36 Baso # (Auto) 0.2 X10^3/uL (0.0-0.1) H 06/06/20 20:36 Absolute Nucleated RBC 0.0 /100WBC 06/06/20 20:36 Total Counted 100 06/06/20 20:36 Neutrophils % (Manual) 83 % (39-76) H 06/06/20 20:36 Band Neutrophils % 5 % (0-10) 06/06/20 20:36 Lymphocytes % (Manual) 9 % (13-43) L 06/06/20 20:36 Monocytes % (Manual) 3 % (4-9) L 06/06/20 20:36 Toxic Granulation Slight A 06/06/20 20:36 Giant Platelets Occasional 06/03/20 21:20 Plt Morphology Comment Normal (NORMAL) 06/06/20 20:36 RBC Morphology Normal (NORMAL) 06/06/20 20:36 Anisocytosis Slight A 06/03/20 21:20 Sodium 139 mmol/L (136-145) 06/07/20 04:20 Corrected Sodium 140 mmol/L (136-145) 06/07/20 04:20 Potassium 3.5 mmol/L (3.5-5.1) 06/07/20 04:20 Chloride 102 mmol/L (98-107) 06/07/20 04:20 Carbon Dioxide 27.4 mmol/L (21-32) 06/07/20 04:20 BUN 6 mg/dL (7-18) L 06/07/20 04:20 Creatinine 0.94 mg/dL (0.70-1.30) 06/07/20 04:20 Est GFR (MDRD) Af Amer > 60 (>60) 06/07/20 04:20 Est GFR (MDRD) Non-Af > 60 (>60) 06/07/20 04:20 Glucose 139 mg/dL (65-99) H 06/07/20 04:20 POC Glucose (mg/dL) 238 mg/dL (65-99) H 06/08/20 11:47 Hemoglobin A1c 8.4 % 06/04/20 05:19 Calcium 8.6 mg/dL (8.5-10.1) 06/07/20 04:20 Corrected Calcium 10.3 mg/dL (8.5-10.1) H 06/04/20 05:19 Total Bilirubin 0.50 mg/dL (0.2-1.0) 06/04/20 05:19 AST 17 Units/L (15-37) 06/04/20 05:19 ALT 32 Units/L (12-78) 06/04/20 05:19 Alkaline Phosphatase 100 Units/L (46-116) 06/04/20 05:19 CK-MB (CK-2) 1.1 ng/mL (0-4.0) 06/06/20 20:36 B-Natriuretic Peptide 922 pg/mL (0-79) H* 06/07/20 04:20 Total Protein 6.5 g/dL (6.4-8.2) 06/04/20 05:19 Albumin 2.4 g/dL (3.4-5.0) L 06/04/20 05:19 Globulin 4.1 g/dL (2.5-4.5) 06/04/20 05:19 Albumin/Globulin Ratio 0.6 Ratio (1.1-2.1) L 06/04/20 05:19 Specimen Type Clean catch urine 06/04/20 00:18 Urine Color Evita (YELLOW) 06/04/20 00:18 Urine Appearance Clear (CLEAR) 06/04/20 00:18 Urine pH 5.0 (5.0 - 8.0) 06/04/20 00:18 Ur Specific [place] 1.025 (1.000-1.030) 06/04/20 00:18 Urine Protein 2+ (NEGATIVE) 06/04/20 00:18 Urine Glucose (UA) 4+ (NEGATIVE) 06/04/20 00:18 Urine Ketones Negative (NEGATIVE) 06/04/20 00:18 Urine Occult Blood 1+ (NEGATIVE) 06/04/20 00:18 Urine Nitrite Negative (NEGATIVE) 06/04/20 00:18 Urine Bilirubin Negative (NEGATIVE) 06/04/20 00:18 Urine Urobilinogen 2+ (NORMAL) 06/04/20 00:18 Ur Leukocyte Esterase 1+ (NEGATIVE) 06/04/20 00:18 Urine RBC 0-2 /HPF (0-3) 06/04/20 00:18 Urine WBC 0-2 /HPF (0-5) 06/04/20 00:18 Ur Squamous Epith Cells Few /HPF (NEGATIVE) 06/04/20 00:18 Urine Bacteria Trace /HPF (NEGATIVE) 06/04/20 00:18 Urine Mucus Moderate /HPF (NEGATIVE) 06/04/20 00:18 Ur Culture Indicated? No/not indicated 06/04/20 00:18 SARS CoV-2 RNA Rapid ROGERS Negative (NEGATIVE) 06/03/20 21:50 Plan (1) Tobacco abuse: Status: Acute Plan: Nicotine patch, counseling of risk of smoking and limb loss (2) Critical ischemia of foot: Status: Acute Plan: Will attempt atherectomy and drug coated balloon angioplasty of the left leg and possible angioplasty distally . If this fails will need fem oral tibial bypass as a back-up plan. Have discussed risks of bleeding, infection, limb loss and . Approximately 70 % chance of success with peripheral intervention. I have explained to both he and his daughter that I have done many such cases but this will be my first one in this location in [facility]. Our staff is trained and experienced with surgery but this is the first actual case of this type they have done. They both understand and agree to proceed. Scheduled to done tomorrow at noon. 06/07/20 Excellent result after revascularization of the left leg as above. Will give 40 mg IV Lasix. Hold IVFs. Follow left leg clinically and continue Plavix . Change wound vacuum next week. 06/08/2020 Doing well, left foot warm with doppler signals of the left AT and PT . Continue antibiotics. Begin Santyl to the left foot wound. Noted to have absent pulses right foot as well which is expected from the occlude right fem-pop bypass. This will be addressed at at later time. Will begin ambulation and PT consult. Will continue IV antibiotics at this time . May need further debridement of the left foot. (3) Ulcer of left medial lower extremity with necrosis of muscle: Status: Acute Plan: See above. Will treat with IV antibiotics and Santyl. (4) Partial nontraumatic amputation of left foot: Status: Acute Plan: See above (5) Diabetes mellitus: Status: Acute Qualifiers: Diabetes mellitus complication detail: with foot ulcer Diabetes mellitus complication status: with skin complications Diabetes mellitus care home insulin use: with rat exterminator use Diabetes mellitus type: type 2 Qualified Code(s): E11.621 - Type 2 diabetes mellitus with foot ulcer; L97.509 - Non- pressure chronic ulcer of other part of unspecified foot with unspecified severity; Z79.4 - rat exterminator (current) use of insulin Plan: Sliding scale insulin now, check Hgb A1c (6) Hypertension: Status: Acute Qualifiers: Hypertension type: essential hypertension Qualified Code(s): I10 - Ess ential (primary) hypertension Plan: Continue home medications (7) GERD (gastroesophageal reflux disease): Status: Acute Qualifiers: Esophagitis presence: esophagitis presence not specified Qualified Code(s): K21.9 - Gastro-esophageal reflux disease without esophagitis Plan: Continue home medications
[2020-06-08] MEDS ORDERED: NS 100 ML IV 100 ML IV ONE (20:03)
[2020-06-08] MEDS: FLEXERIL TAB 10 MG PO PRN (20:17)
[2020-06-08] MEDS: NICOTINE PATCH TD SCH (20:18)
[2020-06-09] MEDS: DILAUDID INJ IVP PRN ×6 (01:31→22:36)
[2020-06-09] MEDS: PERCOCET TAB 5/325 MG PO PRN ×2 (05:30→20:58)
[2020-06-09] MEDS: HumuLIN R SUBCUT PRN ×2 (05:30→12:04)
[2020-06-09] MEDS: ZOSYN VIAL 4.5 GRAMS 4.5 G in NS 100 ML IV + SPIKE MINIBAG* 100 ML IV SCH ×3 (05:30→21:00)
[2020-06-09] MEDS: DUONEB 0.5 MG/3 MG (3 mL) NEB SCH ×4 (08:12→20:04)
[2020-06-09] MEDS: PULMICORT NEB TX 0.5 MG NEB SCH ×2 (08:13→20:04)
[2020-06-09] MEDS: PROTONIX TAB 40 MG PO SCH (10:05)
[2020-06-09] MEDS: PLAVIX PO SCH (10:05)
[2020-06-09] MEDS: ASPIRIN 81 MG CHEWTAB PO SCH (10:06)
[2020-06-09] MEDS: COREG TAB 6.25 MG PO SCH ×2 (10:06→20:57)
[2020-06-09] MEDS: NEURONTIN CAP 400 MG PO SCH ×2 (10:07→20:58)
[2020-06-09] MEDS: LOVENOX INJ 40 MG SYR SC SCH (10:07)
[2020-06-09] MEDS: NICOTINE PATCH TD SCH (20:55)
--- NOTE | 2020-06-09 23:07 | PCM.PROG ---
Progress Note Subjective Subjective: See H& P. Had LE duplex and CTA of aorta with b/l runoff. Doppler shows both right fem-pop bypass and [place] left SFA at site of distal stent occluded with poor runoff b/l and fem - fem graft is patent ( done originally for occluded right external iliac artery). Has necrotic eschar of dorsum left foot following left transmetatarsal amputation several months ago with cellulitis. 06/06/2020 S/P peripheral revascularization of left leg earlier today and called because he had bradycardia an BP of 80 mm systolic . Transferred to the ICU and labs ordered. I examined the patient and he has mild tachycardia with BP of 130/60 and ECG with no ischemic changes , Hgb 14.3 , CK-MB normal at 1.1 with BNP elevated at 1090. Not SOB . Left foot warm and has excellent doppler signal in the left posterior tibial artery and I can now hear a signal in the left dorsalis pedis. 06/07/20 POD # 1 after revascularization left foot for poorly healing transmetatarsal amputation with drug coated balloon angioplasty of the left popliteal and left SFA intrastent occlusion and angioplasty left PT artery with excellent result and warm left foot with excellent posterior tibial doppler signal. Also had excisional debridement of the left dorsal foot and placement of JERALD wound Vacuum system. Post op had some hypotension and bradycardia which have resolved with only mild hypotension . EKG with no ischemia, CK-MB negative. Foot remains warm. BNP elevated at 1090 but has not overt clinical evidence of heart failure . ECHO done today shows EF of 61 % with no evidence chamber failure but does show significant aortic sclerosis. 06/08/2020 Doing well, Only mildly hypotensive with administration of IV Dilaudid. Good result from the IV Lasix. 06/09/2020 All redness resolve left foot Past Medical Family Social History Past Med/Fam/Surg Hx: No changes since H&P Allergies: Allergies Jxbvrpu-Eeg-Ljh Reductase Inhibitor Allergy (Verified 06/03/20 21:56) Vital Signs and I&O's Vital Signs: Temperature 98.2 F Pulse Rate [Left Brachial] 96 Pulse Rate 77 Respiratory Rate 19 Blood Pressure [Right Arm] 94/57 Blood Pressure [Left Arm] 116/58 Blood Pressure 115/65 O2 Sat by Pulse Oximetry 99 Intake and Output: Intake & Output 06/06/20 06/07/20 06/08/20 06/09/20:59 23:59 23:59 23:59 Intake Total 5628 / 5628 1639 / 1639 1954 / 1954 1385 / 1385 Output Total 3825 / 3825 1300 / 1300 1825 / 1825 1000 / 1000 Balance 1803 / 1803 339 / 339 129 / 129 385 / 385 Physical Exam Oriented: Normal, Time and Place Eyes: Normal Ear: Normal Nose: Normal Throat: Normal Cardiovascular: Normal and Other (Excellent doppler signal in the left posterior tibial and now nowhear flow in the left anterior tibial artery as well. ) : Normal Auscultation: Bowel Sounds: Normal Tenderness: Normal Skin: Wound ( S/p debridement of the dorsum left foot is improving.All redness now reolved Wound is 6x6x0.7 cm of the dorsum left foot with duskiness of the distal partof the left transmetatarsal flap.) and Other ( Wound still with duskiness of distal right transmetatarsal flap. Excellent doppler signals right foot. ) Speech Pattern: Clear and Appropriate Laboratory and Diagnostics Result Diagrams: 06/06/20 20:36 06/07/20 04:20 Labs: 06/04/20 00:18 Blood Blood Culture - Final 06/04/20 00:25 Blood Blood Culture - Final Laboratory WBC 13.4 X10^3/uL (3.6-10.0) H 06/06/20 20:36 RBC 4.63 X10^6/uL (4.7-6.0) L 06/06/20 20:36 Hgb 14.3 g/dL (13.5-18.0) 06/06/20 20:36 Hct 42.1 % (42.0-54.0) 06/06/20 20:36 MCV 91.0 fL (80.0-100.0) 06/06/20 20:36 MCH 30.8 pg (27.0-34.0) 06/06/20 20:36 MCHC 33.9 g/dL (33.0-35.0) 06/06/20 20:36 RDW 12.9 % (11.6-16.5) 06/06/20 20:36 Plt Count 283 X10^3/uL (150.0-450.0) 06/06/20 20:36 Plt Count Comment Adequate (ADEQUATE) 06/06/20 20:36 MPV 8.0 fL (7.4-11.0) 06/06/20 20:36 Neut % (Auto) 85.9 % (42.0-75.0) H 06/06/20 20:36 Lymph % (Auto) 6.8 % (21.0-51.0) L 06/06/20 20:36 [place] % (Auto) 5.7 % (0.0-13.0) 06/06/20 20:36 Eos % (Auto) 0.1 % (0.9-2.9) L 06/06/20 20:36 Baso % (Auto) 1.5 % (0.2-1.0) H 06/06/20 20:36 Neut # (Auto) 11.5 x10^3/uL (2.2-4.8) H 06/06/20 20:36 Lymph # (Auto) 0.9 X10^3/uL (1.3-2.9) L 06/06/20 20:36 [place] # (Auto) 0.8 x10^3/uL (0.3-0.8) 06/06/20 20:36 Eos # (Auto) 0.0 x10^3/uL (0.0-0.2) 06/06/20 20:36 Baso # (Auto) 0.2 X10^3/uL (0.0-0.1) H 06/06/20 20:36 Absolute Nucleated RBC 0.0 /100WBC 06/06/20 20:36 Total Counted 100 06/06/20 20:36 Neutrophils % (Manual) 83 % (39-76) H 06/06/20 20:36 Band Neutrophils % 5 % (0-10) 06/06/20 20:36 Lymphocytes % (Manual) 9 % (13-43) L 06/06/20 20:36 Monocytes % (Manual) 3 % (4-9) L 06/06/20 20:36 Toxic Granulation Slight A 06/06/20 20:36 Giant Platelets Occasional 06/03/20 21:20 Plt Morphology Comment Normal (NORMAL) 06/06/20 20:36 RBC Morphology Normal (NORMAL) 06/06/20 20:36 Anisocytosis Slight A 06/03/20 21:20 Sodium 139 mmol/L (136-145) 06/07/20 04:20 Corrected Sodium 140 mmol/L (136-145) 06/07/20 04:20 Potassium 3.5 mmol/L (3.5-5.1) 06/07/20 04:20 Chloride 102 mmol/L (98-107) 06/07/20 04:20 Carbon Dioxide 27.4 mmol/L (21-32) 06/07/20 04:20 BUN 6 mg/dL (7-18) L 06/07/20 04:20 Creatinine 0.94 mg/dL (0.70-1.30) 06/07/20 04:20 Est GFR (MDRD) Af Amer > 60 (>60) 06/07/20 04:20 Est GFR (MDRD) Non-Af > 60 (>60) 06/07/20 04:20 Glucose 139 mg/dL (65-99) H 06/07/20 04:20 POC Glucose (mg/dL) 234 mg/dL (65-99) H 06/09/20 19:53 Hemoglobin A1c 8.4 % 06/04/20 05:19 Calcium 8.6 mg/dL (8.5-10.1) 06/07/20 04:20 Corrected Calcium 10.3 mg/dL (8.5-10.1) H 06/04/20 05:19 Total Bilirubin 0.50 mg/dL (0.2-1.0) 06/04/20 05:19 AST 17 Units/L (15-37) 06/04/20 05:19 ALT 32 Units/L (12-78) 06/04/20 05:19 Alkaline Phosphatase 100 Units/L (46-116) 06/04/20 05:19 CK-MB (CK-2) 1.1 ng/mL (0-4.0) 06/06/20 20:36 B-Natriuretic Peptide 922 pg/mL (0-79) H* 06/07/20 04:20 Total Protein 6.5 g/dL (6.4-8.2) 06/04/20 05:19 Albumin 2.4 g/dL (3.4-5.0) L 06/04/20 05:19 Globulin 4.1 g/dL (2.5-4.5) 06/04/20 05:19 Albumin/Globulin Ratio 0.6 Ratio (1.1-2.1) L 06/04/20 05:19 Specimen Type Clean catch urine 06/04/20 00:18 Urine Color Evita (YELLOW) 06/04/20 00:18 Urine Appearance Clear (CLEAR) 06/04/20 00:18 Urine pH 5.0 (5.0 - 8.0) 06/04/20 00:18 Ur Specific [place] 1.025 (1.000-1.030) 06/04/20 00:18 Urine Protein 2+ (NEGATIVE) 06/04/20 00:18 Urine Glucose (UA) 4+ (NEGATIVE) 06/04/20 00:18 Urine Ketones Negative (NEGATIVE) 06/04/20 00:18 Urine Occult Blood 1+ (NEGATIVE) 06/04/20 00:18 Urine Nitrite Negative (NEGATIVE) 06/04/20 00:18 Urine Bilirubin Negative (NEGATIVE) 06/04/20 00:18 Urine Urobilinogen 2+ (NORMAL) 06/04/20 00:18 Ur Leukocyte Esterase 1+ (NEGATIVE) 06/04/20 00:18 Urine RBC 0-2 /HPF (0-3) 06/04/20 00:18 Urine WBC 0-2 /HPF (0-5) 06/04/20 00:18 Ur Squamous Epith Cells Few /HPF (NEGATIVE) 06/04/20 00:18 Urine Bacteria Trace /HPF (NEGATIVE) 06/04/20 00:18 Urine Mucus Moderate /HPF (NEGATIVE) 06/04/20 00:18 Ur Culture Indicated? No/not indicated 06/04/20 00:18 SARS CoV-2 RNA Rapid ROGERS Negative (NEGATIVE) 06/03/20 21:50 Plan (1) Tobacco abuse: Status: Acute Plan: Nicotine patch, counseling of risk of smoking and limb loss (2) Critical ischemia of foot: Status: Acute Plan: Will attempt atherectomy and drug coated balloon angioplasty of the left leg and possible angioplasty distally . If this fails will need femoral tibial bypass as a back-up plan. Have discussed risks of bleeding, infection, limb loss and . Approximately 70 % chance of success with peripheral intervention. I have explained to both he and his daughter that I have done many such cases but this will be my first one in this location in [facility]. Our staff is trained and experienced with surgery but this is the first actual case of this type they have done. They both understand and agree to proceed. Scheduled to done tomorrow at noon. 06/07/20 Excellent result after revascularization of the left leg as above. Will give 40 mg IV Lasix. Hold IVFs. Follow left leg clinically and continue Plavix . Change wound vacuum next week. 06/08/2020 Doing well, left foot warm with doppler signals of the left AT and PT . Continue antibiotics. Begin Santyl to the left foot wound. Noted to have absent pulses right foot as well which is expected from the occlude right fem-pop bypass. This will be addressed at at later time. Will begin ambulation and PT consult. Will continue IV antibiotics at this time . May need further debridement of the left foot. 06/09/2020 [address]. Continue IV antibiotics,start PT . D/C home soon . Check BMP in AM (3) Ulcer of left medial lower extremity with necrosis of muscle: Status: Acute Plan: See above. Will treat with IV antibiotics and Santyl. (4) Partial nontraumatic amputation of left foot: Status: Acute Plan: See above (5) Diabetes mellitus: Status: Acute Qualifiers: Diabetes mellitus complication detail: with foot ulcer Diabetes mellitus complication status: with skin complications Diabetes mellitus terminal operations supervisor insulin use: with terminal operations supervisor use Diabetes mellitus type: type 2 Qualified Code(s): E11.621 - Type 2 diabetes mellitus with foot ulcer; L97.509 - Non- pressure chronic ulcer of other part of unspecified foot with unspecified severity; Z79.4 - petroleum terminal plant operator (current) use of insulin Plan: Sliding scale insulin now, check Hgb A1c (6) Hypertension: Status: Acute Qualifiers: Hypertension type: essential hypertension Qualified Code(s): I10 - Essential (primary) hypertension Plan: Continue home medications (7) GERD (gastroesophageal reflux disease): Status: Acute Qualifiers: Esophagitis presence: esophagitis presence not specified Qualified Code(s): K21.9 - Gastro-esophageal reflux disease without esophagitis Plan: Continue home medications
[2020-06-10] MEDS: DILAUDID INJ IVP PRN ×6 (01:29→22:19)
[2020-06-10] MEDS ORDERED: NS 100 ML IV 100 ML IV ONE (04:34)
[2020-06-10 05:19] LABS: BLOOD UREA NITROGEN 7 mg/dL (7-18); CALCIUM 8.5 mg/dL (8.5-10.1); CARBON DIOXIDE 27.8 mmol/L (21-32); CHLORIDE 104 mmol/L (98-107); COR NA(FOR HYPERGLY) 143 mmol/L (136-145); CREATININE 0.86 mg/dL (0.70-1.30); SODIUM 141 mmol/L (136-145); eGFR NON BLACK RACES > 60 (>60)
[2020-06-10] MEDS: ZOSYN VIAL 4.5 GRAMS 4.5 G in NS 100 ML IV + SPIKE MINIBAG* 100 ML IV SCH ×2 (05:31→14:39)
[2020-06-10] MEDS: DUONEB 0.5 MG/3 MG (3 mL) NEB SCH ×4 (08:24→20:15)
[2020-06-10] MEDS: PULMICORT NEB TX 0.5 MG NEB SCH ×2 (08:24→20:15)
[2020-06-10] MEDS: PERCOCET TAB 5/325 MG PO PRN ×4 (08:55→18:21)
[2020-06-10] MEDS: FLEXERIL TAB 10 MG PO PRN ×2 (08:56→20:37)
[2020-06-10] MEDS: COREG TAB 6.25 MG PO SCH ×2 (08:57→20:30)
[2020-06-10] MEDS: ASPIRIN 81 MG CHEWTAB PO SCH (08:57)
[2020-06-10] MEDS: PROTONIX TAB 40 MG PO SCH (08:57)
[2020-06-10] MEDS: LOVENOX INJ 40 MG SYR SC SCH (08:57)
[2020-06-10] MEDS: PLAVIX PO SCH (08:57)
[2020-06-10] MEDS: NEURONTIN CAP 400 MG PO SCH ×2 (08:57→20:30)
[2020-06-10] MEDS: HumuLIN R SUBCUT PRN (12:53)
--- NOTE | 2020-06-10 16:36 | PCM.PROG ---
Progress Note Subjective Subjective: See H& P. Had LE duplex and CTA of aorta with b/l runoff. Doppler shows both right fem-pop bypass and [place] left SFA at site of distal stent occluded with poor runoff b/l and fem - fem graft is patent ( done originally for occluded right external iliac artery). Has necrotic eschar of dorsum left foot following left transmetatarsal amputation several months ago with cellulitis. 06/06/2020 S/P peripheral revascularization of left leg earlier today and called because he had bradycardia an BP of 80 mm systolic . Transferred to the ICU and labs ordered. I examined the patient and he has mild tachycardia with BP of 130/60 and ECG with no ischemic changes , Hgb 14.3 , CK-MB normal at 1.1 with BNP elevated at 1090. Not SOB . Left foot warm and has excellent doppler signal in the left posterior tibial artery and I can now hear a signal in the left dorsalis pedis. 06/07/20 POD # 1 after revascularization left foot for poorly healing transmetatarsal amputation with drug coated balloon angioplasty of the left popliteal and left SFA intrastent occlusion and angioplasty left PT artery with excellent result and warm left foot with excellent posterior tibial doppler signal. Also had excisional debridement of the left dorsal foot and placement of JERALD wound Vacuum system. Post op had some hypotension and bradycardia which have resolved with only mild hypotension . EKG with no ischemia, CK-MB negative. Foot remains warm. BNP elevated at 1090 but has not overt clinical evidence of heart failure . ECHO done today shows EF of 61 % with no evidence chamber failure but does show significant aortic sclerosis. 06/08/2020 Doing well, Only mildly hypotensive with administration of IV Dilaudid. Good result from the IV Lasix. 06/09/2020 All redness resolve left foot 06/10/2020 POD # 4 after revascularization of the left foot. Doing well redness resolved , Wound ( transmetatarsal amputation ) is treated daily with Naa Past Medical Family Social History Past Med/Fam/Surg Hx: No changes since H&P Allergies: Allergies Ywrtjvx-Elq-Ylx Reductase Inhibitor Allergy (Verified 06/03/20 21:56) Vital Signs and I&O's Vital Signs: Temperature 98.4 F Pulse Rate [Left Brachial] 96 Pulse Rate 81 Respiratory Rate 18 Blood Pressure [Right Arm] 94/57 Blood Pressure [Left Arm] 116/58 Blood Pressure 126/58 O2 Sat by Pulse Oximetry 96 Intake and Output: Intake & Output 06/07/20 06/08/20 06/09/20 06/10/20 23:59 23:59 23:59 23:59 Intake Total 1639 / 1639 1953 / 1953 472 / 472 Output Total 1300 / 1300 1825 / 1825 1500 / 1500 875 / 875 Balance 339 / 339 129 / 129 485 / 485 -403 / -403 Physical Exam Oriented: Normal, Time and Place Eyes: Normal Ear: Normal Nose: Normal Throat: Normal Cardiovascular: Normal and Other (Excellent doppler signal in the left posterior tibial and now nowhear flow in the left anterior tibial artery as well. ) : Normal Auscultation: Bowel Sounds: Normal Tenderness: Normal Skin: Wound ( S/p debridement of the dorsum left foot is improving.All redness now reolved Wound is 6x6x0.7 cm of the dorsum left foot with duskiness of the distal partof the left transmetatarsal flap.) and Other ( Wound still with duskiness of distal right transmetatarsal flap. Excellent doppler signals right foot. ) Speech Pattern: Clear and Appropriate Laboratory and Diagnostics Result Diagrams: 06/06/20 20:36 06/10/20 04:13 Labs: 06/04/20 00:18 Blood Blood Culture - Final 06/04/20 00:25 Blood Blood Culture - Final Laboratory WBC 13.4 X10^3/uL (3.6-10.0) H 06/06/20 20:36 RBC 4.63 X10^6/uL (4.7-6.0) L 06/06/20 20:36 Hgb 14.3 g/dL (13.5-18.0) 06/06/20 20:36 Hct 42.1 % (42.0-54.0) 06/06/20 20:36 MCV 91.0 fL (80.0-100.0) 06/06/20 20:36 MCH 30.8 pg (27.0-34.0) 06/06/20 20:36 MCHC 33.9 g/dL (33.0-35.0) 06/06/20 20:36 RDW 12.9 % (11.6-16.5) 06/06/20 20:36 Plt Count 283 X10^3/uL (150.0-450.0) 06/06/20 20:36 Plt Count Comment Adequate (ADEQUATE) 06/06/20 20:36 MPV 8.0 fL (7.4-11.0) 06/06/20 20:36 Neut % (Auto) 85.9 % (42.0-75.0) H 06/06/20 20:36 Lymph % (Auto) 6.8 % (21.0-51.0) L 06/06/20 20:36 [place] % (Auto) 5.7 % (0.0-13.0) 06/06/20 20:36 Eos % (Auto) 0.1 % (0.9-2.9) L 06/06/20 20:36 Baso % (Auto) 1.5 % (0.2-1.0) H 06/06/20 20:36 Neut # (Auto) 11.5 x10^3/uL (2.2-4.8) H 06/06/20 20:36 Lymph # (Auto) 0.9 X10^3/uL (1.3-2.9) L 06/06/20 20:36 [place] # (Auto) 0.8 x10^3/uL (0.3-0.8) 06/06/20 20:36 Eos # (Auto) 0.0 x10^3/uL (0.0-0.2) 06/06/20 20:36 Baso # (Auto) 0.2 X10^3/uL (0.0-0.1) H 06/06/20 20:36 Absolute Nucleated RBC 0.0 /100WBC 06/06/20 20:36 Total Counted 100 06/06/20 20:36 Neutrophils % (Manual) 83 % (39-76) H 06/06/20 20:36 Band Neutrophils % 5 % (0-10) 06/06/20 20:36 Lymphocytes % (Manual) 9 % (13-43) L 06/06/20 20:36 Monocytes % (Manual) 3 % (4-9) L 06/06/20 20:36 Toxic Granulation Slight A 06/06/20 20:36 Giant Platelets Occasional 06/03/20 21:20 Plt Morphology Comment Normal (NORMAL) 06/06/20 20:36 RBC Morphology Normal (NORMAL) 06/06/20 20:36 Anisocytosis Slight A 06/03/20 21:20 Sodium 141 mmol/L (136-145) 06/10/20 04:13 Corrected Sodium 143 mmol/L (136-145) 06/10/20 04:13 Potassium 3.7 mmol/L (3.5-5.1) 06/10/20 04:13 Chloride 104 mmol/L (98-107) 06/10/20 04:13 Carbon Dioxide 27.8 mmol/L (21-32) 06/10/20 04:13 BUN 7 mg/dL (7-18) 06/10/20 04:13 Creatinine 0.86 mg/dL (0.70-1.30) 06/10/20 04:13 Est GFR (MDRD) Af Amer > 60 (>60) 06/10/20 04:13 Est GFR (MDRD) Non-Af > 60 (>60) 06/10/20 04:13 Glucose 172 mg/dL (65-99) H 06/10/20 04:13 POC Glucose (mg/dL) 205 mg/dL (65-99) H 06/10/20 16:29 Hemoglobin A1c 8.4 % 06/04/20 05:19 Calcium 8.5 mg/dL (8.5-10.1) 06/10/20 04:13 Corrected Calcium 10.3 mg/dL (8.5-10.1) H 06/04/20 05:19 Total Bilirubin 0.50 mg/dL (0.2-1.0) 06/04/20 05:19 AST 17 Units/L (15-37) 06/04/20 05:19 ALT 32 Units/L (12-78) 06/04/20 05:19 Alkaline Phosphatase 100 Units/L (46-116) 06/04/20 05:19 CK-MB (CK-2) 1.1 ng/mL (0-4.0) 06/06/20 20:36 B-Natriuretic Peptide 922 pg/mL (0-79) H* 06/07/20 04:20 Total Protein 6.5 g/dL (6.4-8.2) 06/04/20 05:19 Albumin 2.4 g/dL (3.4-5.0) L 06/04/20 05:19 Globulin 4.1 g/dL (2.5-4.5) 06/04/20 05:19 Albumin/Globulin Ratio 0.6 Ratio (1.1-2.1) L 06/04/20 05:19 Specimen Type Clean catch urine 06/04/20 00:18 Urine Color Evita (YELLOW) 06/04/20 00:18 Urine Appearance Clear (CLEAR) 06/04/20 00:18 Urine pH 5.0 (5.0 - 8.0) 06/04/20 00:18 Ur Specific [place] 1.025 (1.000-1.030) 06/04/20 00:18 Urine Protein 2+ (NEGATIVE) 06/04/20 00:18 Urine Glucose (UA) 4+ (NEGATIVE) 06/04/20 00:18 Urine Ketones Negative (NEGATIVE) 06/04/20 00:18 Urine Occult Blood 1+ (NEGATIVE) 06/04/20 00:18 Urine Nitrite Negative (NEGATIVE) 06/04/20 00:18 Urine Bilirubin Negative (NEGATIVE) 06/04/20 00:18 Urine Urobilinogen 2+ (NORMAL) 06/04/20 00:18 Ur Leukocyte Esterase 1+ (NEGATIVE) 06/04/20 00:18 Urine RBC 0-2 /HPF (0-3) 06/04/20 00:18 Urine WBC 0-2 /HPF (0-5) 06/04/20 00:18 Ur Squamous Epith Cells Few /HPF (NEGATIVE) 06/04/20 00:18 Urine Bacteria Trace /HPF (NEGATIVE) 06/04/20 00:18 Urine Mucus Moderate /HPF (NEGATIVE) 06/04/20 00:18 Ur Culture Indicated? No/not indicated 06/04/20 00:18 SARS CoV-2 RNA Rapid ROGERS Negative (NEGATIVE) 06/03/20 21:50 Plan (1) Tobacco abuse: Status: Acute Plan: Nicotine patch, counseling of risk of smoking and limb loss (2) Critical ischemia of foot: Status: Acute Plan: Will attempt atherectomy and drug coated balloon angioplasty of the left leg and possible angioplasty distally . If this fails will need femoral tibial bypass as a back-up plan. Have discussed risks of bleeding, infection, limb loss and . Approximately 70 % chance of success with peripheral intervention. I have explained to both he and his daughter that I have done many such cases but this will be my first one in this location in [facility]. Our staff is trained and experienced with surgery but this is the first actual case of this type they have done. They both understand and agree to proceed. Scheduled to done tomorrow at noon. 06/07/20 Excellent result after revascularization of the left leg as above. Will give 40 mg IV Lasix. Hold IVFs. Follow left leg clinically and continue Plavix . Change wound vacuum next week. 06/08/2020 Doing well, left foot warm with doppler signals of the left AT and PT . Continue antibiotics. Begin Santyl to the left foot wound. Noted to have absent pulses right foot as well which is expected from the occlude right fem-pop bypass. This will be addressed at at later time. Will begin ambulation and PT consult. Will continue IV antibiotics at this time . May need further debridement of the left foot. 06/09/2020 To floor. Continue IV antibiotics,start PT . D/C home soon . Check BMP in AM 06/10/2020 Doing well,, D/C home tomorrow with home health checking wound weekly and family to do daily dressing changes . Creatinine is normal on f/u. (3) Ulcer of left medial lower extremity with necrosis of muscle: Status: Acute Plan: See above. Will treat with IV antibiotics and Santyl. (4) Partial nontraumatic amputation of left foot: Status: Acute Plan: See above (5) Diabetes mellitus: Status: Acute Qualifiers: Diabetes mellitus complication detail: with foot ulcer Diabetes mellitus complication status: with skin complications Diabetes mellitus custodial insulin use: with custodial use Diabetes mellitus type: type 2 Qualified Code(s): E11.621 - Type 2 diabetes mellitus with foot ulcer; L97.509 - Non- pressure chronic ulcer of other part of unspecified foot with unspecified severity; Z79.4 - custodial (current) use of insulin Plan: Sliding scale insulin now, check Hgb A1c (6) Hypertension: Status: Acute Qualifiers: Hypertension type: essential hypertension Qualified Code(s): I10 - Essential (primary) hypertension Plan: Continue home medications (7) GERD (gastroesophageal reflux disease): Status: Acute Qualifiers: Esophagitis presence: esophagitis presence not specified Qualified Code(s): K21.9 - Gastro-esophageal reflux disease without esophagitis Plan: Continue home medications
[2020-06-10] MEDS: NICOTINE PATCH TD SCH (20:30)
[2020-06-11] MEDS: DILAUDID INJ IVP PRN ×4 (04:09→11:49)
[2020-06-11] MEDS: ASPIRIN 81 MG CHEWTAB PO SCH (08:36)
[2020-06-11] MEDS: COREG TAB 6.25 MG PO SCH (08:36)
[2020-06-11] MEDS: NEURONTIN CAP 400 MG PO SCH (08:37)
[2020-06-11] MEDS: PLAVIX PO SCH (08:37)
[2020-06-11] MEDS: LOVENOX INJ 40 MG SYR SC SCH (08:37)
[2020-06-11] MEDS: PROTONIX TAB 40 MG PO SCH (08:38)
[2020-06-11] MEDS: DUONEB 0.5 MG/3 MG (3 mL) NEB SCH (09:20)
[2020-06-11] MEDS: PULMICORT NEB TX 0.5 MG NEB SCH (09:20)
--- NOTE | 2020-06-11 11:43 | PCM.DCPLAN ---
DISCHARGE SUMMARY Admission Date Date of Admission: 06/03/20 Discharge Date Discharge Date: 06/11/20 Admission Diagnoses (1) Tobacco abuse: Status: Acute (2) Critical ischemia of foot: Status: Acute (3) Ulcer of left medial lower extremity with necrosis of muscle: Status: Acute (4) Partial nontraumatic amputation of left foot: Status: Acute (5) Diabetes mellitus: Status: Acute (6) Hypertension: Status: Acute (7) GERD (gastroesophageal reflux disease): Status: Acute Discharge Diagnoses Discharge Diagnosis: same Discharge Medications Discharge Medications: Home Medication List albuterol sulfate [ProAir HFA] 2 puff INHALATION Q4H PRN 06/03/20 [History] aspirin [Aspir-81] 81 mg PO DAILY 06/03/20 [History] carvedilol 6.25 mg PO BID 06/03/20 [History] cyclobenzaprine 10 mg PO BID 06/03/20 [History] sxzymfjoovi-vkhujtcnt-ivmckfkv [Trelegy Ellipta] 1 inh INHALATION Q24H 06/03/20 [History] gabapentin 800 mg PO TID 06/03/20 [History] levofloxacin [Levaquin] 500 mg PO Q24H 06/03/20 [History] oxycodone 30 mg PO Q8H PRN 06/03/20 [History] pantoprazole 40 mg PO QAM 06/03/20 [History] clopidogrel 75 mg PO DAILY #30 tab 06/11/20 [Rx] nicotine [Nicoderm CQ] 1 ea TD HS #30 ea 06/11/20 [Rx] Prescriptions: clopidogrel Domenic Miller nicotine [Nicoderm CQ] Domenic Miller Hospital Course Vital Signs: Temperature 97.5 F Pulse Rate [Left Brachial] 96 Pulse Rate 78 Respiratory Rate 22 Blood Pressure [Right Arm] 94/57 Blood Pressure [Left Arm] 116/58 Blood Pressure 123/57 O2 Sat by Pulse Oximetry 97 Latest Lab Results: Laboratory Last Values WBC 13.4 X10^3/uL (3.6-10.0) H 06/06/20 20:36 RBC 4.63 X10^6/uL (4.7-6.0) L 06/06/20 20:36 Hgb 14.3 g/dL (13.5-18.0) 06/06/20 20:36 Hct 42.1 % (42.0-54.0) 06/06/20 20:36 MCV 91.0 fL (80.0-100.0) 06/06/20 20:36 MCH 30.8 pg (27.0-34.0) 06/06/20 20:36 MCHC 33.9 g/dL (33.0-35.0) 06/06/20 20:36 RDW 12.9 % (11.6-16.5) 06/06/20 20:36 Plt Count 283 X10^3/uL (150.0-450.0) 06/06/20 20:36 Plt Count Comment Adequate (ADEQUATE) 06/06/20 20:36 MPV 8.0 fL (7.4-11.0) 06/06/20 20:36 Neut % (Auto) 85.9 % (42.0-75.0) H 06/06/20 20:36 Lymph % (Auto) 6.8 % (21.0-51.0) L 06/06/20 20:36 [place] % (Auto) 5.7 % (0.0-13.0) 06/06/20 20:36 Eos % (Auto) 0.1 % (0.9-2.9) L 06/06/20 20:36 Baso % (Auto) 1.5 % (0.2-1.0) H 06/06/20 20:36 Neut # (Auto) 11.5 x10^3/uL (2.2-4.8) H 06/06/20 20:36 Lymph # (Auto) 0.9 X10^3/uL (1.3-2.9) L 06/06/20 20:36 [place] # (Auto) 0.8 x10^3/uL (0.3-0.8) 06/06/20 20:36 Eos # (Auto) 0.0 x10^3/uL (0.0-0.2) 06/06/20 20:36 Baso # (Auto) 0.2 X10^3/uL (0.0-0.1) H 06/06/20 20:36 Absolute Nucleated RBC 0.0 /100WBC 06/06/20 20:36 Total Counted 100 06/06/20 20:36 Neutrophils % (Manual) 83 % (39-76) H 06/06/20 20:36 Band Neutrophils % 5 % (0-10) 06/06/20 20:36 Lymphocytes % (Manual) 9 % (13-43) L 06/06/20 20:36 Monocytes % (Manual) 3 % (4-9) L 06/06/20 20:36 Toxic Granulation Slight A 06/06/20 20:36 Giant Platelets Occasional 06/03/20 21:20 Plt Morphology Comment Normal (NORMAL) 06/06/20 20:36 RBC Morphology Normal (NORMAL) 06/06/20 20:36 Anisocytosis Slight A 06/03/20 21:20 Sodium 141 mmol/L (136-145) 06/10/20 04:13 Corrected Sodium 143 mmol/L (136-145) 06/10/20 04:13 Potassium 3.7 mmol/L (3.5-5.1) 06/10/20 04:13 Chloride 104 mmol/L (98-107) 06/10/20 04:13 Carbon Dioxide 27.8 mmol/L (21-32) 06/10/20 04:13 BUN 7 mg/dL (7-18) 06/10/20 04:13 Creatinine 0.86 mg/dL (0.70-1.30) 06/10/20 04:13 Est GFR (MDRD) Af Amer > 60 (>60) 06/10/20 04:13 Est GFR (MDRD) Non-Af > 60 (>60) 06/10/20 04:13 Glucose 172 mg/dL (65-99) H 06/10/20 04:13 POC Glucose (mg/dL) 258 mg/dL (65-99) H 06/11/20 05:17 Hemoglobin A1c 8.4 % 06/04/20 05:19 Calcium 8.5 mg/dL (8.5-10.1) 06/10/20 04:13 Corrected Calcium 10.3 mg/dL (8.5-10.1) H 06/04/20 05:19 Total Bilirubin 0.50 mg/dL (0.2-1.0) 06/04/20 05:19 AST 17 Units/L (15-37) 06/04/20 05:19 ALT 32 Units/L (12-78) 06/04/20 05:19 Alkaline Phosphatase 100 Units/L (46-116) 06/04/20 05:19 CK-MB (CK-2) 1.1 ng/mL (0-4.0) 06/06/20 20:36 B-Natriuretic Peptide 922 pg/mL (0-79) H* 06/07/20 04:20 Total Protein 6.5 g/dL (6.4-8.2) 06/04/20 05:19 Albumin 2.4 g/dL (3.4-5.0) L 06/04/20 05:19 Globulin 4.1 g/dL (2.5-4.5) 06/04/20 05:19 Albumin/Globulin Ratio 0.6 Ratio (1.1-2.1) L 06/04/20 05:19 Specimen Type Clean catch urine 06/04/20 00:18 Urine Color Evita (YELLOW) 06/04/20 00:18 Urine Appearance Clear (CLEAR) 06/04/20 00:18 Urine pH 5.0 (5.0 - 8.0) 06/04/20 00:18 Ur Specific [place] 1.025 (1.000-1.030) 06/04/20 00:18 Urine Protein 2+ (NEGATIVE) 06/04/20 00:18 Urine Glucose (UA) 4+ (NEGATIVE) 06/04/20 00:18 Urine Ketones Negative (NEGATIVE) 06/04/20 00:18 Urine Occult Blood 1+ (NEGATIVE) 06/04/20 00:18 Urine Nitrite Negative (NEGATIVE) 06/04/20 00:18 Urine Bilirubin Negative (NEGATIVE) 06/04/20 00:18 Urine Urobilinogen 2+ (NORMAL) 06/04/20 00:18 Ur Leukocyte Esterase 1+ (NEGATIVE) 06/04/20 00:18 Urine RBC 0-2 /HPF (0-3) 06/04/20 00:18 Urine WBC 0-2 /HPF (0-5) 06/04/20 00:18 Ur Squamous Epith Cells Few /HPF (NEGATIVE) 06/04/20 00:18 Urine Bacteria Trace /HPF (NEGATIVE) 06/04/20 00:18 Urine Mucus Moderate /HPF (NEGATIVE) 06/04/20 00:18 Ur Culture Indicated? No/not indicated 06/04/20 00:18 SARS CoV-2 RNA Rapid ROGERS Negative (NEGATIVE) 06/03/20 21:50 Hospital Course: Admitted 06/03 with ischemic changes dorsum left foot following left trransmetatarsal amputation 3 months ago. Patient is a heavy smoker who has continued to smoke and has had multiple vascular procedures in the past, icluding fem- fem graft for right external iliac occlusion which is still patent, right fem-pop bypass with Gortex graft which is occluded, right transmetatarsal amputation which is healed but he has critical ischemia of the right foot, multiple stents of the entire left superficial femoral artery with one vessel run off via the posterior tibial artery . he was admitted and underwent evaluation and treatment of the left leg ischemia with angioplasty of the left posterior tibial artery and recanalization of all the popliteal and SFA stents on the left with Drug coated balloon angioplasty of these vessels and excisional debridement of the dorsal left foot now treated with daily Santyl. D/C home on usual home medications including Plavix 75 mg po daily. Family and Home health will apply Santyl to dorsal left foot wound daily and I will see him in one week. Most likely will need Skin TE full thickness graft to the d orsal left foot wound when it is clean. He will also need revascularization of the right leg in the near future . F/U with 1 week. Instructions Instructions: Gangrene Steps to Quit Smoking, Mskl-ck-Izhc Type 2 Diabetes Mellitus, Self Care, Adult, Aqqk-bp-Livz Atherectomy, Care After Atherectomy Cellulitis, Adult, Klzr-cf-Dweq Hypertension, Iyxa-tx-Xhfb Forms: Excuse From Work or School Precautions for COVID19 Patient Portal Social Distancing
[2020-06-11 12:14] VITALS: BP 142/63
== END 2020-06-11 13:20 | disposition home health service (06) | DRG 253 ==
LOC: ER 19:38 → MED/SURG 19:38 → OBSVTOIN 23:46 → MED/SURG 06-04 00:05 → ICU 06-06 20:10 → MED/SURG 06-09 16:40
PROVIDERS: ADMIT Surgery; ATTEND Surgery
DX: Z79.4 Long term (current) use of insulin; L98.493 Non-pressure chronic ulcer of skin of other sites with necrosis of muscle; I10 Essential (primary) hypertension; Z89.432 Acquired absence of left foot; I97.191 Other postprocedural cardiac functional disturbances following other surgery; Z95.828 Presence of other vascular implants and grafts; I70.248 Atherosclerosis of native arteries of left leg with ulceration of other part of lower leg; E11.51 Type 2 diabetes mellitus with diabetic peripheral angiopathy without gangrene; F17.210 Nicotine dependence, cigarettes, uncomplicated; K21.9 Gastro-esophageal reflux disease without esophagitis; I95.81 Postprocedural hypotension; Z20.822 Contact with and (suspected) exposure to COVID-19

== ENCOUNTER 2020-06-26 11:00 | Inpatient (IN) ==
[2020-06-26] MEDS ORDERED: VENTOLIN or PROAIR HFA IN PRN (20:15)
[2020-06-26] MEDS: DUONEB 0.5 MG/3 MG (3 mL) NEB SCH (21:11)
[2020-06-26] MEDS: PULMICORT NEB TX 0.5 MG NEB SCH (21:11)
[2020-06-26] MEDS: FLEXERIL TAB 10 MG PO SCH (21:53)
[2020-06-26] MEDS: NEURONTIN CAP 400 MG PO SCH (21:54)
[2020-06-26] MEDS: COREG TAB 6.25 MG PO SCH (21:54)
[2020-06-26] MEDS: NICOTINE PATCH TD SCH (21:55)
[2020-06-26] MEDS: HumuLIN R SC PRN (21:56)
[2020-06-26] MEDS ORDERED: GABAPENTIN 400 MG PO SCH (22:00)
[2020-06-26] MEDS: ROXICODONE TAB 15 MG PO PRN (22:01)
[2020-06-26] MEDS: LR 1000 ML IV 1,000 ML IV SCH (22:25)
[2020-06-27] MEDS: NEURONTIN CAP 400 MG PO SCH ×3 (05:31→21:47)
[2020-06-27 06:59] LABS: BLOOD UREA NITROGEN 11 mg/dL (7-18); CALCIUM 8.5 mg/dL (8.5-10.1); CARBON DIOXIDE 25.9 mmol/L (21-32); CREATININE 0.89 mg/dL (0.70-1.30); eGFR NON BLACK RACES > 60 (>60)
[2020-06-27] MEDS ORDERED: PHARMACY CONSULT - VANCOMYCIN XX SCH (07:00)
[2020-06-27] MEDS ORDERED: VANCOMYCIN IV *PREMIX 1 G/200 ML BAG 1 G/200 ML PIGGYBACK IV SCH (07:00)
[2020-06-27] MEDS ORDERED: ANCEF 1 GRAM IV PREMIX* 1 G/50 ML BAG IV ONE (07:11)
[2020-06-27] MEDS ORDERED: LR 1000 ML IV 1,000 ML IV ONE (07:11)
[2020-06-27 07:25] LABS: CHLORIDE 101 mmol/L (98-107); COR NA(FOR HYPERGLY) 139 mmol/L (136-145); SODIUM 137 mmol/L (136-145)
[2020-06-27] MEDS ORDERED: BETADINE SOLN ONE (07:32)
[2020-06-27] MEDS ORDERED: MARCAINE/EPINEPHRINE ONE (07:32)
[2020-06-27] MEDS ORDERED: OFIRMEV IV 1000 MG VIAL 1,000 MG/100 ML VIAL IV ONE (07:39)
[2020-06-27] MEDS ORDERED: PEPCID 20 MG IV PREMIX* 20 MG/50 ML BAG IV ONE (07:39)
[2020-06-27] MEDS ORDERED: FENTANYL INJ 100 mcg ONE (07:39)
[2020-06-27] MEDS ORDERED: ZOFRAN INJ 4 MG VIAL ONE (07:47)
[2020-06-27] MEDS ORDERED: KETALAR ONE (07:47)
[2020-06-27] MEDS ORDERED: DIPRIVAN VIAL ONE (07:47)
[2020-06-27] MEDS ORDERED: VERSED ONE (07:47)
[2020-06-27] MEDS ORDERED: NEO-SYNEPHRINE INJ ONE (07:47)
[2020-06-27] MEDS ORDERED: XYLOCAINE 2 % (PLAIN) ONE (07:47)
[2020-06-27 07:49] LABS: BASOPHILS # (AUTO) 0.1 X10^3/uL (0.0-0.1); BASOPHILS % (AUTO) 0.8 % (0.2-1.0); EOSINOPHILS # (AUTO) 0.2 x10^3/uL (0.0-0.2); HEMATOCRIT 33.6 % (42.0-54.0); HEMOGLOBIN 11.6 g/dL (13.5-18.0); LYMPHOCYTES # (AUTO) 2.3 X10^3/uL (1.3-2.9); LYMPHOCYTES % (AUTO) 31.1 % (21.0-51.0); MEAN CORPUSCULAR HGB CONC 34.7 g/dL (33.0-35.0); MEAN CORPUSCULAR VOLUME 89.3 fL (80.0-100.0); MONOCYTES # (AUTO) 0.9 x10^3/uL (0.3-0.8); MONOCYTES % (AUTO) 11.8 % (0.0-13.0); NEUTROPHILS % (AUTO) 53.3 % (42.0-75.0); PLATELET COUNT 193 X10^3/uL (150.0-450.0); RED BLOOD COUNT 3.76 X10^6/uL (4.7-6.0); RED CELL DISTRIBUTION WIDTH 13.6 % (11.6-16.5); WHITE BLOOD COUNT 7.5 X10^3/uL (3.6-10.0)
--- NOTE | 2020-06-27 08:25 | OR.IMMED ---
IMMEDIATE POST-OP NOTE Immediate Post-Op Note Pre-Op Diagnosis: Necrotic wound left foot after transmetatarsal amputation Post-Op Diagnosis: same Procedure: Excisional debridement left foot wound and place wound vacuum Description of Procedure: See op report Surgeon/Jury Consultant: Paul Findings: Necrotic left foot wound after transmetatarsal amputation and revascularization Specimens Removed: necrotic skin and subcutaneous tissue Estimated Blood Loss: < 5 cc Drains: NONE Complications: none Progress Notes: to floor continue IV antibiotocs Post Hospital Plans and Medications: as above Final Diagnosis: Necrotic left foot wound
[2020-06-27] MEDS ORDERED: NS 1000 ML 1,000 ML IV ONE (08:44)
[2020-06-27] MEDS: PULMICORT NEB TX 0.5 MG NEB SCH ×2 (09:26→20:15)
[2020-06-27] MEDS: DUONEB 0.5 MG/3 MG (3 mL) NEB SCH ×2 (09:26→20:15)
--- NOTE | 2020-06-27 10:13 | DR.OPNOTE ---
OP NOTE Pre-Op Diagnosis: Necrotic left foot wound following transmetatarsal amputation Post-Op Diagnosis: Same Anesthesia Comment: MAC and local Findings: 10 x 7 x 0.5 cm wound left dorsal foot. Has had left transmetatarsal amputation. Specimen/Pathology: None Type of Fluids Used:: Lactated Ringers Total Amount of Fluid Infused:: 400 cc Urine output: no maier, EBL: 5 cc Drains/Tubes Comment: wound vacuum placed Complications:: none Needle/Sponge Count:: correct Disposition/Condition: Pt. tolerated procedure without difficulty. Taken to PACU in stable condition.
--- NOTE | 2020-06-27 10:18 | DR.OPNOTE ---
OP NOTE Pre-Op Diagnosis: Necrotic left foot wound Post-Op Diagnosis: Same Procedure: This patient was taken to the operating suite and placed in the supine position. This patient previously had undergone a transmetatarsal amputation amputation with subsequent gangrenous change of the dorsal left fo ot. . 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 He underwent atherectomy and drug-coated angioplasty to reestablish flow as well as debridement of the gangrenous changes of the dorsal left foot. Access was via his femoral - femoral graft placed in the past for total occlusion of the right external iliac artery. He was discharged home. He has been discharged from home health at least twice. He continues to smoke and is not compliant. He now has further necrosis of the dorsum of the left foot however I believe his foot is still viable at this time. He was taken to the operating suite and placed in the supine position. He was given IV sedation and the entire left foot prepped and draped in sterile fashion. Timeout for the procedure obtained. The necrotic material on the dorsum of the left foot after excisional debridement measured 10 x 7 x 0.5 cm. This area infiltrated with 10 mL of 0.5% Marcaine with epinephrine. Using a number 10 knife all the necrotic material was removed and there was good active bleeding. Most of the tendons remained intact. There was no obvious pus to be drained. Black foam was fashioned to fit over the wound and this was covered with adhesive sheeting. Incision made over the sheeting over the foam measuring 2 x 2 cm and the round track pad applied to this and the wound vacuum placed on 150 mmHg suction. There was no significant air leak. Patient tolerated the procedure well and was taken to the PACU in good condition. Anesthesia Comment: Mac and local Findings: 10x7x0.5 cm left foot wound dorsal surface Specimen/Pathology: none Type of Fluids Used:: Lactated Ringers Total Amount of Fluid Infused:: 400 cc EBL: 5cc Drains/Tubes Comment: Wound vacuum Complications:: none Needle/Sponge Count:: correct Disposition/Condition: Pt. tolerated procedure without difficulty. Extubated in the OR and taken to PACU in stable condition.
[2020-06-27] MEDS: COREG TAB 6.25 MG PO SCH ×2 (10:33→20:43)
[2020-06-27] MEDS: ASPIRIN EC 81 MG PO SCH (10:33)
[2020-06-27] MEDS: PROTONIX TAB 40 MG PO SCH (10:33)
[2020-06-27] MEDS: FLEXERIL TAB 10 MG PO SCH ×2 (10:33→20:50)
[2020-06-27] MEDS: LR 1000 ML IV 1,000 ML IV SCH ×2 (10:33→20:41)
[2020-06-27] MEDS: VANCOMYCIN IV *PREMIX 1 G/200 ML BAG 1 G/200 ML PIGGYBACK IV SCH ×2 (10:33→20:44)
[2020-06-27] MEDS: ROXICODONE TAB 15 MG PO PRN ×2 (11:08→20:50)
[2020-06-27 15:00] VITALS: BMI 22.9
[2020-06-27] MEDS: HumuLIN R SC PRN ×2 (17:08→20:51)
[2020-06-27] MEDS: NICOTINE PATCH TD SCH (20:42)
[2020-06-28] MEDS: ROXICODONE TAB 15 MG PO PRN ×3 (04:55→22:24)
[2020-06-28] MEDS: NEURONTIN CAP 400 MG PO SCH ×3 (05:19→21:13)
[2020-06-28] MEDS: DUONEB 0.5 MG/3 MG (3 mL) NEB SCH ×2 (08:06→21:41)
[2020-06-28] MEDS: PULMICORT NEB TX 0.5 MG NEB SCH ×2 (08:06→21:41)
[2020-06-28] MEDS: ASPIRIN EC 81 MG PO SCH (08:32)
[2020-06-28] MEDS: VANCOMYCIN IV *PREMIX 1 G/200 ML BAG 1 G/200 ML PIGGYBACK IV SCH ×2 (08:32→22:24)
[2020-06-28] MEDS: COREG TAB 6.25 MG PO SCH ×2 (08:32→20:34)
[2020-06-28] MEDS: FLEXERIL TAB 10 MG PO SCH ×2 (08:32→20:34)
[2020-06-28] MEDS: PROTONIX TAB 40 MG PO SCH (08:32)
[2020-06-28] MEDS: LR 1000 ML IV 1,000 ML IV SCH ×2 (10:18→23:06)
--- NOTE | 2020-06-28 11:13 | NOTE.SOAP ---
Soap Note Subjective Data Subjective Data: S/p excisional debridement this AM of left foot wound and application of wound vacuum. No problems intra-op. On arrival to floor has been hypotensive but awake and alert . Objective Data Pulse Rate: 66 Blood Pressure: 80/40 O2 Sat by Pulse Oximetry: 100 Objective Data: Awake and alert no reported bleeding from the wound vacuum Assessment Assessment: Hypotension post op Plan Plan: Bolus with fluid. Observe
--- NOTE | 2020-06-28 14:24 | DR.PROGNOT ---
Hospital Progress Notes - Progress Note for Day of: Progress Note Date: 06/28/20 - Chief Complaint Chief Complaint: s/p debridement Lt foot wound and application of wound vac .. doing fairly well , no c/o . wound vac is properly applied - Past Medical Family Social History Past Med/Fam/Surg Hx: No changes since H&P Allergies: Allergies Zvdamxk-Izi-Yap Reductase Inhibitor Allergy (Verified 06/03/20 21:56) - Review Of Systems ROS: No change since H&P - Vital Signs Vital Signs: Temperature 98.3 F Pulse Rate [Left Brachial] 72 Pulse Rate 64 Respiratory Rate 18 Blood Pressure [Right Arm] 132/60 Blood Pressure [Left Arm] 94/52 Blood Pressure 80/40 O2 Sat by Pulse Oximetry 97 - Physical Exam Oriented: Normal Ear: Normal Nose: Normal Respiratory: Normal Cardiovascular: Normal : Normal GI:Auscultation: Normal GI:Palpation: Normal GI: Tenderness: Normal Skin: Other (open wound LT forefoot with woundvac in place ) Speech Pattern: Clear, Appropriate - Laboratory and Diagnostics Result Diagrams: 06/27/20 05:20 06/27/20 05:30 Labs: 06/27/20 07:00 Foot - Left Wound Gram Stain - Final 06/27/20 07:00 Foot - Left Wound Culture - Preliminary Laboratory WBC 7.5 X10^3/uL (3.6-10.0) 06/27/20 05:20 RBC 3.76 X10^6/uL (4.7-6.0) L 06/27/20 05:20 Hgb 11.6 g/dL (13.5-18.0) L 06/27/20 05:20 Hct 33.6 % (42.0-54.0) L 06/27/20 05:20 MCV 89.3 fL (80.0-100.0) 06/27/20 05:20 MCH 31.0 pg (27.0-34.0) 06/27/20 05:20 MCHC 34.7 g/dL (33.0-35.0) 06/27/20 05:20 RDW 13.6 % (11.6-16.5) 06/27/20 05:20 Plt Count 193 X10^3/uL (150.0-450.0) 06/27/20 05:20 MPV 8.0 fL (7.4-11.0) 06/27/20 05:20 Neut % (Auto) 53.3 % (42.0-75.0) 06/27/20 05:20 Lymph % (Auto) 31.1 % (21.0-51.0) 06/27/20 05:20 [place] % (Auto) 11.8 % (0.0-13.0) 06/27/20 05:20 Eos % (Auto) 3.0 % (0.9-2.9) H 06/27/20 05:20 Baso % (Auto) 0.8 % (0.2-1.0) 06/27/20 05:20 Neut # (Auto) 4.0 x10^3/uL (2.2-4.8) 06/27/20 05:20 Lymph # (Auto) 2.3 X10^3/uL (1.3-2.9) 06/27/20 05:20 [place] # (Auto) 0.9 x10^3/uL (0.3-0.8) H 06/27/20 05:20 Eos # (Auto) 0.2 x10^3/uL (0.0-0.2) 06/27/20 05:20 Baso # (Auto) 0.1 X10^3/uL (0.0-0.1) 06/27/20 05:20 Absolute Nucleated RBC 0.0 /100WBC 06/27/20 05:20 Sodium 137 mmol/L (136-145) 06/27/20 05:30 Corrected Sodium 139 mmol/L (136-145) 06/27/20 05:30 Potassium 3.7 mmol/L (3.5-5.1) 06/27/20 05:30 Chloride 101 mmol/L (98-107) 06/27/20 05:30 Carbon Dioxide 25.9 mmol/L (21-32) 06/27/20 05:30 BUN 11 mg/dL (7-18) 06/27/20 05:30 Creatinine 0.89 mg/dL (0.70-1.30) 06/27/20 05:30 Est GFR (MDRD) Af Amer > 60 (>60) 06/27/20 05:30 Est GFR (MDRD) Non-Af > 60 (>60) 06/27/20 05:30 Glucose 190 mg/dL (65-99) H 06/27/20 05:30 POC Glucose (mg/dL) 153 mg/dL (65-99) H 06/28/20 11:08 Calcium 8.5 mg/dL (8.5-10.1) 06/27/20 05:30 SARS CoV-2 RNA Rapid ROGERS Negative (NEGATIVE) 06/26/20 16:51 - Assessment and Plan 1: open wound LT forefoot . s/p debridement and application of wound vac . DM and PVD .. same plan . IV ATB , local care
[2020-06-28] MEDS ORDERED: ZOFRAN INJ 4 MG VIAL IVP PRN (15:24)
[2020-06-28] MEDS ORDERED: PHARMACY COMMENT IV NR (20:30)
[2020-06-28] MEDS: NICOTINE PATCH TD SCH (20:34)
[2020-06-28 21:37] LABS: CREATININE 0.96 mg/dL (0.70-1.30); VANCOMYCIN,TROUGH 7.3 ug/mL (15-20)
[2020-06-28] MEDS ORDERED: PHARMACY CONSULT - VANCOMYCIN XX SCH (23:00)
[2020-06-29] MEDS: VANCOMYCIN IV *PREMIX 1 G/200 ML BAG 1 G/200 ML PIGGYBACK IV SCH ×3 (05:24→22:57)
[2020-06-29] MEDS: NEURONTIN CAP 400 MG PO SCH ×3 (05:24→21:07)
[2020-06-29] MEDS: ROXICODONE TAB 15 MG PO PRN ×3 (05:58→20:24)
[2020-06-29] MEDS: PULMICORT NEB TX 0.5 MG NEB SCH ×2 (09:35→20:35)
[2020-06-29] MEDS: DUONEB 0.5 MG/3 MG (3 mL) NEB SCH ×2 (09:35→20:35)
[2020-06-29] MEDS: PROTONIX TAB 40 MG PO SCH (10:00)
[2020-06-29] MEDS: COREG TAB 6.25 MG PO SCH ×2 (10:00→20:23)
[2020-06-29] MEDS: ASPIRIN EC 81 MG PO SCH (10:00)
[2020-06-29] MEDS: FLEXERIL TAB 10 MG PO SCH ×2 (10:00→20:23)
--- NOTE | 2020-06-29 13:05 | DR.PROGNOT ---
Hospital Progress Notes - Progress Note for Day of: Progress Note Date: 06/29/20 - Chief Complaint Chief Complaint: s/p debridement Lt foot wound and application of wound vac .. doing fairly well , no c/o . wound vac is properly applied . BS 151 . - Past Medical Family Social History Past Med/Fam/Surg Hx: No changes since H&P Allergies: Allergies Ifuwnio-Ndm-Bid Reductase Inhibitor Allergy (Verified 06/03/20 21:56) - Review Of Systems ROS: No change since H&P - Vital Signs Vital Signs: Temperature 97.8 F Pulse Rate [Left Brachial] 71 Pulse Rate 80 Respiratory Rate 20 Blood Pressure [Right Arm] 118/59 Blood Pressure [Left Arm] 128/65 Blood Pressure 80/40 O2 Sat by Pulse Oximetry 96 - Physical Exam Oriented: Normal Ear: Normal Nose: Normal Respiratory: Normal Cardiovascular: Normal : Normal GI:Auscultation: Normal GI:Palpation: Normal GI: Tenderness: Normal Skin: Other (open wound LT forefoot with woundvac in place ) Speech Pattern: Clear, Appropriate - Laboratory and Diagnostics Result Diagrams: 06/27/20 05:20 06/28/20 20:57 Labs: 06/27/20 07:22 Blood Blood Culture - Preliminary 06/27/20 07:10 Blood Blood Culture - Preliminary 06/27/20 07:00 Foot - Left Wound Gram Stain - Final 06/27/20 07:00 Foot - Left Wound Culture - Final Escherichia Coli Laboratory WBC 7.5 X10^3/uL (3.6-10.0) 06/27/20 05:20 RBC 3.76 X10^6/uL (4.7-6.0) L 06/27/20 05:20 Hgb 11.6 g/dL (13.5-18.0) L 06/27/20 05:20 Hct 33.6 % (42.0-54.0) L 06/27/20 05:20 MCV 89.3 fL (80.0-100.0) 06/27/20 05:20 MCH 31.0 pg (27.0-34.0) 06/27/20 05:20 MCHC 34.7 g/dL (33.0-35.0) 06/27/20 05:20 RDW 13.6 % (11.6-16.5) 06/27/20 05:20 Plt Count 193 X10^3/uL (150.0-450.0) 06/27/20 05:20 MPV 8.0 fL (7.4-11.0) 06/27/20 05:20 Neut % (Auto) 53.3 % (42.0-75.0) 06/27/20 05:20 Lymph % (Auto) 31.1 % (21.0-51.0) 06/27/20 05:20 [place] % (Auto) 11.8 % (0.0-13.0) 06/27/20 05:20 Eos % (Auto) 3.0 % (0.9-2.9) H 06/27/20 05:20 Baso % (Auto) 0.8 % (0.2-1.0) 06/27/20 05:20 Neut # (Auto) 4.0 x10^3/uL (2.2-4.8) 06/27/20 05:20 Lymph # (Auto) 2.3 X10^3/uL (1.3-2.9) 06/27/20 05:20 [place] # (Auto) 0.9 x10^3/uL (0.3-0.8) H 06/27/20 05:20 Eos # (Auto) 0.2 x10^3/uL (0.0-0.2) 06/27/20 05:20 Baso # (Auto) 0.1 X10^3/uL (0.0-0.1) 06/27/20 05:20 Absolute Nucleated RBC 0.0 /100WBC 06/27/20 05:20 Sodium 137 mmol/L (136-145) 06/27/20 05:30 Corrected Sodium 139 mmol/L (136-145) 06/27/20 05:30 Potassium 3.7 mmol/L (3.5-5.1) 06/27/20 05:30 Chloride 101 mmol/L (98-107) 06/27/20 05:30 Carbon Dioxide 25.9 mmol/L (21-32) 06/27/20 05:30 BUN 11 mg/dL (7-18) 06/27/20 05:30 Creatinine 0.96 mg/dL (0.70-1.30) 06/28/20 20:57 Est GFR (MDRD) Af Amer > 60 (>60) 06/27/20 05:30 Est GFR (MDRD) Non-Af > 60 (>60) 06/27/20 05:30 Glucose 190 mg/dL (65-99) H 06/27/20 05:30 POC Glucose (mg/dL) 151 mg/dL (65-99) H 06/29/20 12:14 Calcium 8.5 mg/dL (8.5-10.1) 06/27/20 05:30 Vancomycin Trough 7.3 ug/mL (15-20) L 06/28/20 20:57 SARS CoV-2 RNA Rapid ROGERS Negative (NEGATIVE) 06/26/20 16:51 - Assessment and Plan 1: open wound LT forefoot . s/p debridement and application of wound vac . DM and PVD .. same plan . IV ATB , local care and diabetic control ..
[2020-06-29] MEDS: LR 1000 ML IV 1,000 ML IV SCH (13:22)
[2020-06-29] MEDS: HumuLIN R SC PRN (18:00)
[2020-06-29] MEDS: NICOTINE PATCH TD SCH (20:24)
[2020-06-29 22:54] LABS: CREATININE 0.89 mg/dL (0.70-1.30); VANCOMYCIN,TROUGH 16.5 ug/mL (15-20)
[2020-06-29] MEDS: COLACE CAP 100 MG PO PRN (22:59)
[2020-06-30] MEDS: ROXICODONE TAB 15 MG PO PRN ×3 (04:00→22:16)
[2020-06-30] MEDS: LR 1000 ML IV 1,000 ML IV SCH ×3 (04:04→17:07)
[2020-06-30] MEDS: NEURONTIN CAP 400 MG PO SCH ×3 (05:18→21:03)
[2020-06-30] MEDS: VANCOMYCIN IV *PREMIX 1 G/200 ML BAG 1 G/200 ML PIGGYBACK IV SCH ×3 (05:18→21:03)
[2020-06-30] MEDS: PULMICORT NEB TX 0.5 MG NEB SCH ×2 (08:47→20:35)
[2020-06-30] MEDS: DUONEB 0.5 MG/3 MG (3 mL) NEB SCH ×2 (08:47→20:34)
[2020-06-30] MEDS: COREG TAB 6.25 MG PO SCH ×2 (09:37→20:15)
[2020-06-30] MEDS: PROTONIX TAB 40 MG PO SCH (09:37)
[2020-06-30] MEDS: ASPIRIN EC 81 MG PO SCH (09:37)
[2020-06-30] MEDS: FLEXERIL TAB 10 MG PO SCH ×2 (09:37→20:14)
[2020-06-30] MEDS: NICOTINE PATCH TD SCH (20:14)
[2020-06-30] MEDS: COLACE CAP 100 MG PO PRN (20:14)
--- NOTE | 2020-06-30 22:59 | DR.PROGNOT ---
Hospital Progress Notes - Progress Note for Day of: Progress Note Date: 06/30/20 - Chief Complaint Chief Complaint: doing fairly well , no new complaint . wound vac is properly applied . BS 1166 ..WBC 7.5. Vanco level 16.5. temp 98 - Past Medical Family Social History Past Med/Fam/Surg Hx: No changes since H&P Allergies: Allergies Lmgqylp-Yww-Foq Reductase Inhibitor Allergy (Verified 06/03/20 21:56) - Review Of Systems ROS: No change since H&P - Vital Signs Vital Signs: Temperature 98.0 F Pulse Rate [Left Brachial] 81 Pulse Rate 75 Respiratory Rate 20 Blood Pressure [Right Arm] 112/59 Blood Pressure [Left Arm] 104/71 Blood Pressure 80/40 O2 Sat by Pulse Oximetry 94 - Physical Exam Oriented: Normal Ear: Normal Nose: Normal Respiratory: Normal Cardiovascular: Normal : Normal GI:Auscultation: Normal GI:Palpation: Normal GI: Tenderness: Normal Skin: Other (open wound LT forefoot with woundvac in place ) Speech Pattern: Clear, Appropriate - Laboratory and Diagnostics Result Diagrams: 06/27/20 05:20 06/29/20 22:00 Labs: 06/27/20 07:22 Blood Blood Culture - Preliminary 06/27/20 07:10 Blood Blood Culture - Preliminary 06/27/20 07:00 Foot - Left Wound Gram Stain - Final 06/27/20 07:00 Foot - Left Wound Culture - Final Escherichia Coli Laboratory WBC 7.5 X10^3/uL (3.6-10.0) 06/27/20 05:20 RBC 3.76 X10^6/uL (4.7-6.0) L 06/27/20 05:20 Hgb 11.6 g/dL (13.5-18.0) L 06/27/20 05:20 Hct 33.6 % (42.0-54.0) L 06/27/20 05:20 MCV 89.3 fL (80.0-100.0) 06/27/20 05:20 MCH 31.0 pg (27.0-34.0) 06/27/20 05:20 MCHC 34.7 g/dL (33.0-35.0) 06/27/20 05:20 RDW 13.6 % (11.6-16.5) 06/27/20 05:20 Plt Count 193 X10^3/uL (150.0-450.0) 06/27/20 05:20 MPV 8.0 fL (7.4-11.0) 06/27/20 05:20 Neut % (Auto) 53.3 % (42.0-75.0) 06/27/20 05:20 Lymph % (Auto) 31.1 % (21.0-51.0) 06/27/20 05:20 [place] % (Auto) 11.8 % (0.0-13.0) 06/27/20 05:20 Eos % (Auto) 3.0 % (0.9-2.9) H 06/27/20 05:20 Baso % (Auto) 0.8 % (0.2-1.0) 06/27/20 05:20 Neut # (Auto) 4.0 x10^3/uL (2.2-4.8) 06/27/20 05:20 Lymph # (Auto) 2.3 X10^3/uL (1.3-2.9) 06/27/20 05:20 [place] # (Auto) 0.9 x10^3/uL (0.3-0.8) H 06/27/20 05:20 Eos # (Auto) 0.2 x10^3/uL (0.0-0.2) 06/27/20 05:20 Baso # (Auto) 0.1 X10^3/uL (0.0-0.1) 06/27/20 05:20 Absolute Nucleated RBC 0.0 /100WBC 06/27/20 05:20 Sodium 137 mmol/L (136-145) 06/27/20 05:30 Corrected Sodium 139 mmol/L (136-145) 06/27/20 05:30 Potassium 3.7 mmol/L (3.5-5.1) 06/27/20 05:30 Chloride 101 mmol/L (98-107) 06/27/20 05:30 Carbon Dioxide 25.9 mmol/L (21-32) 06/27/20 05:30 BUN 11 mg/dL (7-18) 06/27/20 05:30 Creatinine 0.89 mg/dL (0.70-1.30) 06/29/20 22:00 Est GFR (MDRD) Af Amer > 60 (>60) 06/27/20 05:30 Est GFR (MDRD) Non-Af > 60 (>60) 06/27/20 05:30 Glucose 190 mg/dL (65-99) H 06/27/20 05:30 POC Glucose (mg/dL) 186 mg/dL (65-99) H 06/30/20 19:11 Calcium 8.5 mg/dL (8.5-10.1) 06/27/20 05:30 Vancomycin Trough 16.5 ug/mL (15-20) 06/29/20 22:00 SARS CoV-2 RNA Rapid ROGERS Negative (NEGATIVE) 06/26/20 16:51 - Assessment and Plan 1: open wound LT forefoot . s/p debridement and application of wound vac . DM and PVD .. same plan . IV ATB , local care and diabetic control ,. to change wound vac in am ..
[2020-07-01 05:24] LABS: CREATININE 0.91 mg/dL (0.70-1.30); VANCOMYCIN,TROUGH 15.9 ug/mL (15-20)
[2020-07-01] MEDS: ROXICODONE TAB 15 MG PO PRN ×2 (05:43→17:19)
[2020-07-01] MEDS: NEURONTIN CAP 400 MG PO SCH ×3 (05:44→21:20)
[2020-07-01] MEDS: LR 1000 ML IV 1,000 ML IV SCH ×3 (05:44→17:28)
[2020-07-01] MEDS: VANCOMYCIN IV *PREMIX 1 G/200 ML BAG 1 G/200 ML PIGGYBACK IV SCH ×2 (06:04→14:05)
[2020-07-01] MEDS: PROTONIX TAB 40 MG PO SCH (09:57)
[2020-07-01] MEDS: ASPIRIN EC 81 MG PO SCH (09:57)
[2020-07-01] MEDS: COREG TAB 6.25 MG PO SCH ×2 (09:57→21:20)
[2020-07-01] MEDS: FLEXERIL TAB 10 MG PO SCH ×2 (09:57→21:20)
[2020-07-01] MEDS: DUONEB 0.5 MG/3 MG (3 mL) NEB SCH ×2 (10:06→20:36)
[2020-07-01] MEDS: PULMICORT NEB TX 0.5 MG NEB SCH ×2 (10:06→20:36)
[2020-07-01] MEDS: SANTYL EXT SCH ×2 (17:00→21:44)
--- NOTE | 2020-07-01 17:18 | NOTE.SOAP ---
Soap Note Subjective Data Subjective Data: Did well over the weekend. No fever. Wound vacuum in place . Culture growing E. coli resistant ot the Vancomycin. Objective Data Temperature: 98.0 F Pulse Rate: 72 Respiratory Rate: 20 Blood Pressure: 91/50 O2 Sat by Pulse Oximetry: 97 Objective Data: All redness of foot resolved.m Early granulation around edge of the 11x9 cm wound. Small amount of purulent drainage, Assessment Assessment: POD # 4 after excisional debridement left foot wound at site of transmetatarsal amputation. Doing well Plan Plan: Change to Invanz 1 gram IV q 24 hr and d/c Vancomycin. Continue wound vacuum . Santyl added to the wound.
[2020-07-01] MEDS: NICOTINE PATCH TD SCH (21:20)
[2020-07-02] MEDS: ROXICODONE TAB 15 MG PO PRN ×3 (01:22→18:14)
[2020-07-02] MEDS: SANTYL EXT SCH (06:05)
[2020-07-02] MEDS: LR 1000 ML IV 1,000 ML IV SCH (06:05)
[2020-07-02] MEDS: NEURONTIN CAP 400 MG PO SCH ×4 (06:05→21:08)
[2020-07-02] MEDS: DUONEB 0.5 MG/3 MG (3 mL) NEB SCH ×3 (07:56→20:00)
[2020-07-02] MEDS: PULMICORT NEB TX 0.5 MG NEB SCH ×3 (07:57→20:00)
[2020-07-02] MEDS ORDERED: SANTYL EXT PRN (09:00)
[2020-07-02] MEDS: PROTONIX TAB 40 MG PO SCH (09:41)
[2020-07-02] MEDS: COREG TAB 6.25 MG PO SCH ×2 (09:41→21:09)
[2020-07-02] MEDS: FLEXERIL TAB 10 MG PO SCH ×2 (09:41→21:08)
[2020-07-02] MEDS: ASPIRIN EC 81 MG PO SCH (09:41)
[2020-07-02] MEDS: INVANZ INJ 1 GM VIAL 1 GM in NS 100 ML IV + SPIKE MINIBAG* 100 ML IV SCH (10:00)
[2020-07-02] MEDS: NICOTINE PATCH TD SCH (21:08)
--- NOTE | 2020-07-02 22:08 | NOTE.SOAP ---
Soap Note Subjective Data Subjective Data: Patient teaching is afebrile. Antibiotics changed yesterday. Curreently on Invanz 1 g you 24 hours Objective Data Temperature: 97.7 F Pulse Rate: 88 Respiratory Rate: 20 Blood Pressure: 141/63 O2 Sat by Pulse Oximetry: 96 Objective Data: When vacuum remains in place with minimal drainage. Assessment Assessment: Continued IV Invanz. Will change wound vacuum on and hopefully discharg home. Plan Plan: See assessment.
[2020-07-03] MEDS: ROXICODONE TAB 15 MG PO PRN ×3 (03:15→22:24)
[2020-07-03] MEDS: NEURONTIN CAP 400 MG PO SCH ×3 (06:05→21:12)
[2020-07-03] MEDS: DUONEB 0.5 MG/3 MG (3 mL) NEB SCH ×2 (08:14→20:38)
[2020-07-03] MEDS: PULMICORT NEB TX 0.5 MG NEB SCH ×2 (08:14→20:00)
[2020-07-03] MEDS: LR 1000 ML IV 1,000 ML IV SCH ×4 (08:59→20:42)
[2020-07-03] MEDS: INVANZ INJ 1 GM VIAL 1 GM in NS 100 ML IV + SPIKE MINIBAG* 100 ML IV SCH (09:00)
[2020-07-03] MEDS: FLEXERIL TAB 10 MG PO SCH ×2 (09:00→20:44)
[2020-07-03] MEDS: ASPIRIN EC 81 MG PO SCH (09:00)
[2020-07-03] MEDS: COREG TAB 6.25 MG PO SCH ×2 (09:00→20:44)
[2020-07-03] MEDS: PROTONIX TAB 40 MG PO SCH (09:00)
--- NOTE | 2020-07-03 14:32 | DR.UPDATE ---
H&P UPDATE (1) Ulcer of left medial lower extremity with necrosis of muscle: History and Physical Update: Admission H& P from office on date of admission with no change. Plan to start IV antibiotics and debride left foot and place wound vacuum. (2) Partial nontraumatic amputation of left foot: (3) Diabetes mellitus:
[2020-07-03] MEDS: NICOTINE PATCH TD SCH (20:43)
[2020-07-04] MEDS: LR 1000 ML IV 1,000 ML IV SCH ×3 (00:26→16:29)
[2020-07-04] MEDS: NEURONTIN CAP 400 MG PO SCH ×3 (05:26→21:10)
[2020-07-04] MEDS: PROTONIX TAB 40 MG PO SCH (08:31)
[2020-07-04] MEDS: FLEXERIL TAB 10 MG PO SCH ×2 (08:31→20:37)
[2020-07-04] MEDS: ASPIRIN EC 81 MG PO SCH (08:31)
[2020-07-04] MEDS: COREG TAB 6.25 MG PO SCH ×2 (08:31→20:36)
[2020-07-04] MEDS: ROXICODONE TAB 15 MG PO PRN ×2 (08:31→16:28)
[2020-07-04] MEDS: INVANZ INJ 1 GM VIAL 1 GM in NS 100 ML IV + SPIKE MINIBAG* 100 ML IV SCH (08:39)
[2020-07-04] MEDS: DUONEB 0.5 MG/3 MG (3 mL) NEB SCH ×2 (09:33→20:59)
[2020-07-04] MEDS: PULMICORT NEB TX 0.5 MG NEB SCH ×2 (09:33→20:59)
[2020-07-04] MEDS ORDERED: SANTYL ONE (13:38)
[2020-07-04] MEDS: NICOTINE PATCH TD SCH (20:37)
--- NOTE | 2020-07-04 21:03 | NOTE.SOAP ---
Soap Note Subjective Data Subjective Data: This patient continues to do well on IV antibiotics for open wound of the left foot status post transmetatarsal amputation and revascularization with atherectomy of the supers from artery inside of multiple stents with drug-coated angioplasty. Wound vacuum has been applied to the dorsum of the left foot. Cultures have grown E. coli currently treated IV Invanz. Objective Data Temperature: 97.9 F Pulse Rate: 77 Respiratory Rate: 20 Blood Pressure: 117/56 O2 Sat by Pulse Oximetry: 93 Objective Data: Wound vacuum left foot change. Already is resolved. Wound with small amount of purulent exudate. Most of this appears to be old tendon. Assessment Assessment: Will obtain wound vacuum discharged home tomorrow. Either home health will do the dressings twice a week or I will do them at the clinic in [place]. Plan is for skin grafting of this open wound in the near future. Plan Plan: see above
[2020-07-05] MEDS: LR 1000 ML IV 1,000 ML IV SCH ×4 (01:25→22:37)
[2020-07-05] MEDS: ROXICODONE TAB 15 MG PO PRN ×3 (01:28→21:01)
[2020-07-05] MEDS: NEURONTIN CAP 400 MG PO SCH ×3 (05:06→21:00)
[2020-07-05] MEDS: PULMICORT NEB TX 0.5 MG NEB SCH ×2 (09:04→21:06)
[2020-07-05] MEDS: DUONEB 0.5 MG/3 MG (3 mL) NEB SCH ×2 (09:04→21:06)
[2020-07-05] MEDS: FLEXERIL TAB 10 MG PO SCH ×2 (09:19→20:51)
[2020-07-05] MEDS: PROTONIX TAB 40 MG PO SCH (09:19)
[2020-07-05] MEDS: COREG TAB 6.25 MG PO SCH ×2 (09:19→20:51)
[2020-07-05] MEDS: ASPIRIN EC 81 MG PO SCH (09:19)
[2020-07-05] MEDS: INVANZ INJ 1 GM VIAL 1 GM in NS 100 ML IV + SPIKE MINIBAG* 100 ML IV SCH (09:20)
[2020-07-05] MEDS: NICOTINE PATCH TD SCH (20:52)
--- NOTE | 2020-07-05 21:23 | NOTE.SOAP ---
Soap Note Subjective Data Subjective Data: This patient was supposed to be discharged home but we had to keep him due to the fact that we could not obtain home health to provide wound vacuum for him. Objective Data Temperature: 97.9 F Pulse Rate: 75 Respiratory Rate: 20 Blood Pressure: 133/63 O2 Sat by Pulse Oximetry: 96 Objective Data: When vacuuming place with minimal drainage. Assessment Assessment: Will continue patient over the weekend on antibiotics and discharge on Wednesday with and wound vacuum.[facility] [place] [facility].
[2020-07-06] MEDS: NEURONTIN CAP 400 MG PO SCH ×3 (05:33→21:25)
[2020-07-06] MEDS: ROXICODONE TAB 15 MG PO PRN ×3 (05:34→21:30)
[2020-07-06 05:38] LABS: BASOPHILS % (AUTO) 0.4 % (0.2-1.0); EOSINOPHILS # (AUTO) 0.2 x10^3/uL (0.0-0.2); EOSINOPHILS % (AUTO) 2.7 % (0.9-2.9); HEMATOCRIT 33.2 % (42.0-54.0); HEMOGLOBIN 11.4 g/dL (13.5-18.0); LYMPHOCYTES % (AUTO) 25.3 % (21.0-51.0); MEAN CORPUSCULAR HEMOGLOBIN 30.5 pg (27.0-34.0); MEAN CORPUSCULAR HGB CONC 34.2 g/dL (33.0-35.0); MEAN CORPUSCULAR VOLUME 89.4 fL (80.0-100.0); MEAN PLATELET VOLUME 8.4 fL (7.4-11.0); MONOCYTES # (AUTO) 0.9 x10^3/uL (0.3-0.8); NEUTROPHILS # (AUTO) 4.7 x10^3/uL (2.2-4.8); NEUTROPHILS % (AUTO) 60.6 % (42.0-75.0); PLATELET COUNT 188 X10^3/uL (150.0-450.0); RED BLOOD COUNT 3.72 X10^6/uL (4.7-6.0); RED CELL DISTRIBUTION WIDTH 14.1 % (11.6-16.5); WHITE BLOOD COUNT 7.8 X10^3/uL (3.6-10.0)
[2020-07-06 06:08] LABS: ALANINE AMINOTRANSFERASE 18 Units/L (12-78); ALBUMIN 2.3 g/dL (3.4-5.0); ALKALINE PHOSPHATASE 108 Units/L (46-116); ASPARTATE AMINO TRANSFERASE 15 Units/L (15-37); BLOOD UREA NITROGEN 12 mg/dL (7-18); CALCIUM 8.3 mg/dL (8.5-10.1); CARBON DIOXIDE 28.2 mmol/L (21-32); CHLORIDE 105 mmol/L (98-107); COR CA(FOR HYPOALB) 9.7 mg/dL (8.5-10.1); COR NA(FOR HYPERGLY) 141 mmol/L (136-145); CREATININE 0.81 mg/dL (0.70-1.30); SODIUM 140 mmol/L (136-145); TOTAL PROTEIN 5.5 g/dL (6.4-8.2); eGFR NON BLACK RACES > 60 (>60)
[2020-07-06] MEDS: PULMICORT NEB TX 0.5 MG NEB SCH ×2 (08:35→21:12)
[2020-07-06] MEDS: DUONEB 0.5 MG/3 MG (3 mL) NEB SCH ×2 (08:35→21:12)
[2020-07-06] MEDS: INVANZ INJ 1 GM VIAL 1 GM in NS 100 ML IV + SPIKE MINIBAG* 100 ML IV SCH (09:24)
[2020-07-06] MEDS: COREG TAB 6.25 MG PO SCH ×2 (09:24→20:22)
[2020-07-06] MEDS: FLEXERIL TAB 10 MG PO SCH ×2 (09:24→20:22)
[2020-07-06] MEDS: PROTONIX TAB 40 MG PO SCH (09:24)
[2020-07-06] MEDS: ASPIRIN EC 81 MG PO SCH (09:24)
[2020-07-06] MEDS: LR 1000 ML IV 1,000 ML IV SCH ×2 (15:40→19:16)
[2020-07-06] MEDS: NICOTINE PATCH TD SCH (20:21)
[2020-07-07] MEDS: LR 1000 ML IV 1,000 ML IV SCH ×3 (04:43→19:40)
[2020-07-07] MEDS: ROXICODONE TAB 15 MG PO PRN ×3 (05:33→21:13)
[2020-07-07] MEDS: NEURONTIN CAP 400 MG PO SCH ×3 (05:33→21:14)
[2020-07-07 06:38] LABS: BASOPHILS % (AUTO) 0.3 % (0.2-1.0); EOSINOPHILS # (AUTO) 0.2 x10^3/uL (0.0-0.2); EOSINOPHILS % (AUTO) 2.1 % (0.9-2.9); HEMATOCRIT 38.2 % (42.0-54.0); HEMOGLOBIN 12.7 g/dL (13.5-18.0); MEAN CORPUSCULAR HGB CONC 33.3 g/dL (33.0-35.0); MEAN CORPUSCULAR VOLUME 90.3 fL (80.0-100.0); MONOCYTES # (AUTO) 0.9 x10^3/uL (0.3-0.8); MONOCYTES % (AUTO) 11.2 % (0.0-13.0); NEUTROPHILS # (AUTO) 5.2 x10^3/uL (2.2-4.8); NEUTROPHILS % (AUTO) 62.4 % (42.0-75.0); PLATELET COUNT 192 X10^3/uL (150.0-450.0); RED BLOOD COUNT 4.23 X10^6/uL (4.7-6.0); RED CELL DISTRIBUTION WIDTH 14.5 % (11.6-16.5); WHITE BLOOD COUNT 8.4 X10^3/uL (3.6-10.0)
[2020-07-07 07:03] LABS: ALANINE AMINOTRANSFERASE 20 Units/L (12-78); ALBUMIN 2.6 g/dL (3.4-5.0); ALKALINE PHOSPHATASE 106 Units/L (46-116); ASPARTATE AMINO TRANSFERASE 16 Units/L (15-37); BLOOD UREA NITROGEN 12 mg/dL (7-18); CALCIUM 8.8 mg/dL (8.5-10.1); CARBON DIOXIDE 28.4 mmol/L (21-32); CHLORIDE 107 mmol/L (98-107); COR CA(FOR HYPOALB) 9.9 mg/dL (8.5-10.1); COR NA(FOR HYPERGLY) 144 mmol/L (136-145); CREATININE 0.88 mg/dL (0.70-1.30); SODIUM 143 mmol/L (136-145); TOTAL PROTEIN 6.3 g/dL (6.4-8.2); eGFR NON BLACK RACES > 60 (>60)
[2020-07-07] MEDS: PULMICORT NEB TX 0.5 MG NEB SCH ×2 (08:58→21:07)
[2020-07-07] MEDS: DUONEB 0.5 MG/3 MG (3 mL) NEB SCH ×2 (08:58→21:07)
[2020-07-07] MEDS: INVANZ INJ 1 GM VIAL 1 GM in NS 100 ML IV + SPIKE MINIBAG* 100 ML IV SCH (09:25)
[2020-07-07] MEDS: COREG TAB 6.25 MG PO SCH ×2 (09:26→21:15)
[2020-07-07] MEDS: PROTONIX TAB 40 MG PO SCH (09:26)
[2020-07-07] MEDS: FLEXERIL TAB 10 MG PO SCH ×2 (09:26→21:14)
[2020-07-07] MEDS: ASPIRIN EC 81 MG PO SCH (09:26)
--- NOTE | 2020-07-07 15:48 | NOTE.SOAP ---
Soap Note Objective Data Temperature: 98 F Pulse Rate: 77 Respiratory Rate: 20 Blood Pressure: 122/73 O2 Sat by Pulse Oximetry: 97 Objective Data: Patient doing well. Small leak from the vacuum resolved yesterday. Minimal drainage from wound vacuum. 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 Will will
[2020-07-07] MEDS: NICOTINE PATCH TD SCH (21:15)
[2020-07-08] MEDS: LR 1000 ML IV 1,000 ML IV SCH ×3 (05:07→17:31)
[2020-07-08] MEDS: ROXICODONE TAB 15 MG PO PRN ×3 (05:30→22:03)
[2020-07-08] MEDS: NEURONTIN CAP 400 MG PO SCH ×3 (05:30→21:30)
[2020-07-08 06:15] LABS: BASOPHILS % (AUTO) 0.2 % (0.2-1.0); EOSINOPHILS # (AUTO) 0.3 x10^3/uL (0.0-0.2); EOSINOPHILS % (AUTO) 3.8 % (0.9-2.9); HEMATOCRIT 35.3 % (42.0-54.0); HEMOGLOBIN 12.1 g/dL (13.5-18.0); LYMPHOCYTES # (AUTO) 2.2 X10^3/uL (1.3-2.9); LYMPHOCYTES % (AUTO) 30.4 % (21.0-51.0); MEAN CORPUSCULAR HEMOGLOBIN 30.7 pg (27.0-34.0); MEAN CORPUSCULAR HGB CONC 34.2 g/dL (33.0-35.0); MEAN CORPUSCULAR VOLUME 89.9 fL (80.0-100.0); MEAN PLATELET VOLUME 8.2 fL (7.4-11.0); MONOCYTES # (AUTO) 0.7 x10^3/uL (0.3-0.8); MONOCYTES % (AUTO) 10.5 % (0.0-13.0); NEUTROPHILS # (AUTO) 3.9 x10^3/uL (2.2-4.8); NEUTROPHILS % (AUTO) 55.1 % (42.0-75.0); PLATELET COUNT 183 X10^3/uL (150.0-450.0); RED BLOOD COUNT 3.93 X10^6/uL (4.7-6.0); RED CELL DISTRIBUTION WIDTH 14.2 % (11.6-16.5); WHITE BLOOD COUNT 7.1 X10^3/uL (3.6-10.0)
[2020-07-08 06:28] LABS: ALANINE AMINOTRANSFERASE 20 Units/L (12-78); ALBUMIN 2.5 g/dL (3.4-5.0); ALKALINE PHOSPHATASE 103 Units/L (46-116); ASPARTATE AMINO TRANSFERASE 15 Units/L (15-37); BLOOD UREA NITROGEN 11 mg/dL (7-18); CALCIUM 8.8 mg/dL (8.5-10.1); CHLORIDE 103 mmol/L (98-107); COR NA(FOR HYPERGLY) 140 mmol/L (136-145); CREATININE 0.92 mg/dL (0.70-1.30); SODIUM 139 mmol/L (136-145); eGFR NON BLACK RACES > 60 (>60)
[2020-07-08] MEDS: ASPIRIN EC 81 MG PO SCH (08:57)
[2020-07-08] MEDS: INVANZ INJ 1 GM VIAL 1 GM in NS 100 ML IV + SPIKE MINIBAG* 100 ML IV SCH (08:57)
[2020-07-08] MEDS: FLEXERIL TAB 10 MG PO SCH ×2 (08:59→21:30)
[2020-07-08] MEDS: PROTONIX TAB 40 MG PO SCH (08:59)
[2020-07-08] MEDS: COREG TAB 6.25 MG PO SCH ×2 (08:59→21:30)
[2020-07-08] MEDS: DUONEB 0.5 MG/3 MG (3 mL) NEB SCH ×2 (09:10→20:00)
[2020-07-08] MEDS: PULMICORT NEB TX 0.5 MG NEB SCH ×2 (09:10→20:00)
--- NOTE | 2020-07-08 16:39 | PCM.PROG ---
Progress Note Progress Note for Day of Date of Exam: 07/08/20 Subjective Subjective: S/p admission for debridement of left foot transmetatarsal amputation after revacularization of left leg . Wound vacuum in place awaiting approval for wound vacuum for home use . Continues on IV antibiotics with wound growing E. Coli sensitive to Invanz. Past Medical Family Social History Past Med/Fam/Surg Hx: No changes since H&P Allergies: Allergies Tghadmy-Uow-Mmi Reductase Inhibitor Allergy (Verified 06/03/20 21:56) Review of Systems ROS: No change since H&P Vital Signs and I&O's Vital Signs: Temperature 98.3 F Pulse Rate [Left Brachial] 74 Pulse Rate 73 Respiratory Rate 20 Blood Pressure [Right Arm] 122/69 Blood Pressure [Left Arm] 141/63 Blood Pressure 122/73 O2 Sat by Pulse Oximetry 96 Intake and Output: Intake & Output 07/05/20 07/06/20 07/07/20 07/08/20 23:59 23:59 23:59 23:59 Intake Total 4272 / 4272 3100 / 3100 2622 / 2622 934 / 934 Output Total 3740 / 3740 3625 / 3625 2480 / 2480 1378 / 1378 Balance 532 / 532 -525 / -525 142 / 142 -444 / -444 Physical Exam Oriented: Normal Ear: Normal Nose: Normal Respiratory: Normal Cardiovascular: Normal : Normal Auscultation: Bowel Sounds: Normal Tenderness: Normal Skin: Other (open wound LT forefoot with woundvac in place , all redness resolved) Speech Pattern: Clear and Appropriate Laboratory and Diagnostics Result Diagrams: 07/08/20 05:20 07/08/20 05:20 Labs: 06/27/20 07:22 Blood Blood Culture - Final 06/27/20 07:10 Blood Blood Culture - Final 06/27/20 07:00 Foot - Left Wound Gram Stain - Final 06/27/20 07:00 Foot - Left Wound Culture - Final Escherichia Coli Laboratory WBC 7.1 X10^3/uL (3.6-10.0) 07/08/20 05:20 RBC 3.93 X10^6/uL (4.7-6.0) L 07/08/20 05:20 Hgb 12.1 g/dL (13.5-18.0) L 07/08/20 05:20 Hct 35.3 % (42.0-54.0) L 07/08/20 05:20 MCV 89.9 fL (80.0-100.0) 07/08/20 05:20 MCH 30.7 pg (27.0-34.0) 07/08/20 05:20 MCHC 34.2 g/dL (33.0-35.0) 07/08/20 05:20 RDW 14.2 % (11.6-16.5) 07/08/20 05:20 Plt Count 183 X10^3/uL (150.0-450.0) 07/08/20 05:20 MPV 8.2 fL (7.4-11.0) 07/08/20 05:20 Neut % (Auto) 55.1 % (42.0-75.0) 07/08/20 05:20 Lymph % (Auto) 30.4 % (21.0-51.0) 07/08/20 05:20 [place] % (Auto) 10.5 % (0.0-13.0) 07/08/20 05:20 Eos % (Auto) 3.8 % (0.9-2.9) H 07/08/20 05:20 Baso % (Auto) 0.2 % (0.2-1.0) 07/08/20 05:20 Neut # (Auto) 3.9 x10^3/uL (2.2-4.8) 07/08/20 05:20 Lymph # (Auto) 2.2 X10^3/uL (1.3-2.9) 07/08/20 05:20 [place] # (Auto) 0.7 x10^3/uL (0.3-0.8) 07/08/20 05:20 Eos # (Auto) 0.3 x10^3/uL (0.0-0.2) H 07/08/20 05:20 Baso # (Auto) 0.0 X10^3/uL (0.0-0.1) 07/08/20 05:20 Absolute Nucleated RBC 0.2 /100WBC 07/08/20 05:20 Sodium 139 mmol/L (136-145) 07/08/20 05:20 Corrected Sodium 140 mmol/L (136-145) 07/08/20 05:20 Potassium 4.4 mmol/L (3.5-5.1) 07/08/20 05:20 Chloride 103 mmol/L (98-107) 07/08/20 05:20 Carbon Dioxide 30.0 mmol/L (21-32) 07/08/20 05:20 BUN 11 mg/dL (7-18) 07/08/20 05:20 Creatinine 0.92 mg/dL (0.70-1.30) 07/08/20 05:20 Est GFR (MDRD) Af Amer > 60 (>60) 07/08/20 05:20 Est GFR (MDRD) Non-Af > 60 (>60) 07/08/20 05:20 Glucose 150 mg/dL (65-99) H 07/08/20 05:20 POC Glucose (mg/dL) 118 mg/dL (65-99) H 07/08/20 12:33 Calcium 8.8 mg/dL (8.5-10.1) 07/08/20 05:20 Corrected Calcium 10.0 mg/dL (8.5-10.1) 07/08/20 05:20 Total Bilirubin 0.30 mg/dL (0.2-1.0) 07/08/20 05:20 AST 15 Units/L (15-37) 07/08/20 05:20 ALT 20 Units/L (12-78) 07/08/20 05:20 Alkaline Phosphatase 103 Units/L (46-116) 07/08/20 05:20 Total Protein 6.0 g/dL (6.4-8.2) L 07/08/20 05:20 Albumin 2.5 g/dL (3.4-5.0) L 07/08/20 05:20 Globulin 3.5 g/dL (2.5-4.5) 07/08/20 05:20 Albumin/Globulin Ratio 0.7 Ratio (1.1-2.1) L 07/08/20 05:20 Vancomycin Trough 15.9 ug/mL (15-20) 07/01/20 04:45 SARS CoV-2 RNA Rapid ROGERS Negative (NEGATIVE) 06/26/20 16:51 Plan (1) Ulcer of left medial lower extremity with necrosis of muscle: Status: Acute (2) Partial nontraumatic amputation of left foot: Status: Acute Narrative Support Text: Hopefully d/c home tomorrow following wound vacuum approval Plan: as above (3) Diabetes mellitus: Status: Acute Qualifiers: Diabetes mellitus complication detail: with foot ulcer Diabetes mellitus complication status: with skin complications Diabetes mellitus watermelon inspector insulin use: with chcf use Diabetes mellitus type: type 2 Qualified Code(s): E11.621 - Type 2 diabetes mellitus with foot ulcer; L97.509 - Non- pressure chronic ulcer of other part of unspecified foot with unspecified severity; Z79.4 - buttermaker helper (current) use of insulin
--- NOTE | 2020-07-08 16:41 | DR.PROGNOT ---
HOSPITAL PROGRESS NOTE Chief Complaint Chief Complaint: doing fairly well , no new complaint . wound vac is properly applied . BS 1166 ..WBC 7.5 Vanco level 16.5. temp 98 Past Medical Family Social History Past Med/Fam/Surg Hx: No changes since H&P Allergies: Allergies Rmszkna-Guv-Eug Reductase Inhibitor Allergy (Verified 06/03/20 21:56) Review Of Systems ROS: No change since H&P Vital Signs Vital Signs: Temperature 98.0 F Pulse Rate [Left Brachial] 73 Pulse Rate 73 Respiratory Rate 20 Blood Pressure [Right Arm] 111/61 Blood Pressure [Left Arm] 141/63 Blood Pressure 122/73 O2 Sat by Pulse Oximetry 95 Physical Exam Oriented: Normal Ear: Normal Nose: Normal Respiratory: Normal Cardiovascular: Normal : Normal GI:Auscultation: Normal GI:Palpation: Normal GI: Tenderness: Normal Skin: Other (open wound LT forefoot with woundvac in place ) Speech Pattern: Clear and Appropriate Laboratory and Diagnostics Result Diagrams: 07/08/20 05:20 07/08/20 05:20 Labs: 06/27/20 07:22 Blood Blood Culture - Final 06/27/20 07:10 Blood Blood Culture - Final 06/27/20 07:00 Foot - Left Wound Gram Stain - Final 06/27/20 07:00 Foot - Left Wound Culture - Final Escherichia Coli Laboratory WBC 7.1 X10^3/uL (3.6-10.0) 07/08/20 05:20 RBC 3.93 X10^6/uL (4.7-6.0) L 07/08/20 05:20 Hgb 12.1 g/dL (13.5-18.0) L 07/08/20 05:20 Hct 35.3 % (42.0-54.0) L 07/08/20 05:20 MCV 89.9 fL (80.0-100.0) 07/08/20 05:20 MCH 30.7 pg (27.0-34.0) 07/08/20 05:20 MCHC 34.2 g/dL (33.0-35.0) 07/08/20 05:20 RDW 14.2 % (11.6-16.5) 07/08/20 05:20 Plt Count 183 X10^3/uL (150.0-450.0) 07/08/20 05:20 MPV 8.2 fL (7.4-11.0) 07/08/20 05:20 Neut % (Auto) 55.1 % (42.0-75.0) 07/08/20 05:20 Lymph % (Auto) 30.4 % (21.0-51.0) 07/08/20 05:20 [place] % (Auto) 10.5 % (0.0-13.0) 07/08/20 05:20 Eos % (Auto) 3.8 % (0.9-2.9) H 07/08/20 05:20 Baso % (Auto) 0.2 % (0.2-1.0) 07/08/20 05:20 Neut # (Auto) 3.9 x10^3/uL (2.2-4.8) 07/08/20 05:20 Lymph # (Auto) 2.2 X10^3/uL (1.3-2.9) 07/08/20 05:20 [place] # (Auto) 0.7 x10^3/uL (0.3-0.8) 07/08/20 05:20 Eos # (Auto) 0.3 x10^3/uL (0.0-0.2) H 07/08/20 05:20 Baso # (Auto) 0.0 X10^3/uL (0.0-0.1) 07/08/20 05:20 Absolute Nucleated RBC 0.2 /100WBC 07/08/20 05:20 Sodium 139 mmol/L (136-145) 07/08/20 05:20 Corrected Sodium 140 mmol/L (136-145) 07/08/20 05:20 Potassium 4.4 mmol/L (3.5-5.1) 07/08/20 05:20 Chloride 103 mmol/L (98-107) 07/08/20 05:20 Carbon Dioxide 30.0 mmol/L (21-32) 07/08/20 05:20 BUN 11 mg/dL (7-18) 07/08/20 05:20 Creatinine 0.92 mg/dL (0.70-1.30) 07/08/20 05:20 Est GFR (MDRD) Af Amer > 60 (>60) 07/08/20 05:20 Est GFR (MDRD) Non-Af > 60 (>60) 07/08/20 05:20 Glucose 150 mg/dL (65-99) H 07/08/20 05:20 POC Glucose (mg/dL) 118 mg/dL (65-99) H 07/08/20 12:33 Calcium 8.8 mg/dL (8.5-10.1) 07/08/20 05:20 Corrected Calcium 10.0 mg/dL (8.5-10.1) 07/08/20 05:20 Total Bilirubin 0.30 mg/dL (0.2-1.0) 07/08/20 05:20 AST 15 Units/L (15-37) 07/08/20 05:20 ALT 20 Units/L (12-78) 07/08/20 05:20 Alkaline Phosphatase 103 Units/L (46-116) 07/08/20 05:20 Total Protein 6.0 g/dL (6.4-8.2) L 07/08/20 05:20 Albumin 2.5 g/dL (3.4-5.0) L 07/08/20 05:20 Globulin 3.5 g/dL (2.5-4.5) 07/08/20 05:20 Albumin/Globulin Ratio 0.7 Ratio (1.1-2.1) L 07/08/20 05:20 Vancomycin Trough 15.9 ug/mL (15-20) 07/01/20 04:45 SARS CoV-2 RNA Rapid ROGERS Negative (NEGATIVE) 06/26/20 16:51 Assessment and Plan 1: open wound LT forefoot . s/p debridement and application of wound vac . DM and PVD .. same plan . IV ATB , local care and diabetic control , to change wound vac in am ..
--- NOTE | 2020-07-08 16:50 | PCM.PROG ---
Progress Note Progress Note for Day of Date of Exam: 07/03/20 Subjective Subjective: S/p admission for debridement of left foot transmetatarsal amputation after revacularization of left leg . Wound vacuum in place awaiting approval for wound vacuum for home use . Past Medical Family Social History Past Med/Fam/Surg Hx: No changes since H&P Allergies: Allergies Tuqfvoq-Fbj-Qss Reductase Inhibitor Allergy (Verified 06/03/20 21:56) Review of Systems ROS: No change since H&P Vital Signs and I&O's Vital Signs: Temperature 98.3 F Pulse Rate [Left Brachial] 74 Pulse Rate 73 Respiratory Rate 20 Blood Pressure [Right Arm] 122/69 Blood Pressure [Left Arm] 141/63 Blood Pressure 122/73 O2 Sat by Pulse Oximetry 96 Physical Exam Oriented: Normal Ear: Normal Nose: Normal Respiratory: Normal Cardiovascular: Normal : Normal Auscultation: Bowel Sounds: Normal Tenderness: Normal Skin: Other (open wound LT forefoot with woundvac in place , all redness resolved) Speech Pattern: Clear and Appropriate Laboratory and Diagnostics Result Diagrams: 07/08/20 05:20 07/08/20 05:20 Labs: 06/27/20 07:22 Blood Blood Culture - Final 06/27/20 07:10 Blood Blood Culture - Final 06/27/20 07:00 Foot - Left Wound Gram Stain - Final 06/27/20 07:00 Foot - Left Wound Culture - Final Escherichia Coli Laboratory WBC 7.1 X10^3/uL (3.6-10.0) 07/08/20 05:20 RBC 3.93 X10^6/uL (4.7-6.0) L 07/08/20 05:20 Hgb 12.1 g/dL (13.5-18.0) L 07/08/20 05:20 Hct 35.3 % (42.0-54.0) L 07/08/20 05:20 MCV 89.9 fL (80.0-100.0) 07/08/20 05:20 MCH 30.7 pg (27.0-34.0) 07/08/20 05:20 MCHC 34.2 g/dL (33.0-35.0) 07/08/20 05:20 RDW 14.2 % (11.6-16.5) 07/08/20 05:20 Plt Count 183 X10^3/uL (150.0-450.0) 07/08/20 05:20 MPV 8.2 fL (7.4-11.0) 07/08/20 05:20 Neut % (Auto) 55.1 % (42.0-75.0) 07/08/20 05:20 Lymph % (Auto) 30.4 % (21.0-51.0) 07/08/20 05:20 [place] % (Auto) 10.5 % (0.0-13.0) 07/08/20 05:20 Eos % (Auto) 3.8 % (0.9-2.9) H 07/08/20 05:20 Baso % (Auto) 0.2 % (0.2-1.0) 07/08/20 05:20 Neut # (Auto) 3.9 x10^3/uL (2.2-4.8) 07/08/20 05:20 Lymph # (Auto) 2.2 X10^3/uL (1.3-2.9) 07/08/20 05:20 [place] # (Auto) 0.7 x10^3/uL (0.3-0.8) 07/08/20 05:20 Eos # (Auto) 0.3 x10^3/uL (0.0-0.2) H 07/08/20 05:20 Baso # (Auto) 0.0 X10^3/uL (0.0-0.1) 07/08/20 05:20 Absolute Nucleated RBC 0.2 /100WBC 07/08/20 05:20 Sodium 139 mmol/L (136-145) 07/08/20 05:20 Corrected Sodium 140 mmol/L (136-145) 07/08/20 05:20 Potassium 4.4 mmol/L (3.5-5.1) 07/08/20 05:20 Chloride 103 mmol/L (98-107) 07/08/20 05:20 Carbon Dioxide 30.0 mmol/L (21-32) 07/08/20 05:20 BUN 11 mg/dL (7-18) 07/08/20 05:20 Creatinine 0.92 mg/dL (0.70-1.30) 07/08/20 05:20 Est GFR (MDRD) Af Amer > 60 (>60) 07/08/20 05:20 Est GFR (MDRD) Non-Af > 60 (>60) 07/08/20 05:20 Glucose 150 mg/dL (65-99) H 07/08/20 05:20 POC Glucose (mg/dL) 118 mg/dL (65-99) H 07/08/20 12:33 Calcium 8.8 mg/dL (8.5-10.1) 07/08/20 05:20 Corrected Calcium 10.0 mg/dL (8.5-10.1) 07/08/20 05:20 Total Bilirubin 0.30 mg/dL (0.2-1.0) 07/08/20 05:20 AST 15 Units/L (15-37) 07/08/20 05:20 ALT 20 Units/L (12-78) 07/08/20 05:20 Alkaline Phosphatase 103 Units/L (46-116) 07/08/20 05:20 Total Protein 6.0 g/dL (6.4-8.2) L 07/08/20 05:20 Albumin 2.5 g/dL (3.4-5.0) L 07/08/20 05:20 Globulin 3.5 g/dL (2.5-4.5) 07/08/20 05:20 Albumin/Globulin Ratio 0.7 Ratio (1.1-2.1) L 07/08/20 05:20 Vancomycin Trough 15.9 ug/mL (15-20) 07/01/20 04:45 SARS CoV-2 RNA Rapid ROGERS Negative (NEGATIVE) 06/26/20 16:51 Plan (1) Ulcer of left medial lower extremity with necrosis of muscle: Status: Acute (2) Partial nontraumatic amputation of left foot: Status: Acute Plan: continue wound vacuum and antibiotics (3) Diabetes mellitus: Status: Acute Qualifiers: Diabetes mellitus complication detail: with foot ulcer Diabetes mellitus complication status: with skin complications Diabetes mellitus director long term care insulin use: with mcc use Diabetes mellitus type: type 2 Qualified Code(s): E11.621 - Type 2 diabetes mellitus with foot ulcer; L97.509 - Non- pressure chronic ulcer of other part of unspecified foot with unspecified severity; Z79.4 - snf (current) use of insulin
[2020-07-08] MEDS: NICOTINE PATCH TD SCH (21:30)
[2020-07-09] MEDS: LR 1000 ML IV 1,000 ML IV SCH ×2 (00:29→05:22)
[2020-07-09 06:20] LABS: BASOPHILS % (AUTO) 0.2 % (0.2-1.0); EOSINOPHILS # (AUTO) 0.3 x10^3/uL (0.0-0.2); EOSINOPHILS % (AUTO) 3.9 % (0.9-2.9); HEMATOCRIT 36.7 % (42.0-54.0); HEMOGLOBIN 12.5 g/dL (13.5-18.0); LYMPHOCYTES # (AUTO) 2.2 X10^3/uL (1.3-2.9); LYMPHOCYTES % (AUTO) 28.2 % (21.0-51.0); MEAN CORPUSCULAR HEMOGLOBIN 30.5 pg (27.0-34.0); MEAN CORPUSCULAR HGB CONC 34.1 g/dL (33.0-35.0); MEAN CORPUSCULAR VOLUME 89.5 fL (80.0-100.0); MEAN PLATELET VOLUME 8.3 fL (7.4-11.0); MONOCYTES # (AUTO) 0.9 x10^3/uL (0.3-0.8); MONOCYTES % (AUTO) 10.7 % (0.0-13.0); NEUTROPHILS # (AUTO) 4.5 x10^3/uL (2.2-4.8); PLATELET COUNT 184 X10^3/uL (150.0-450.0); RED CELL DISTRIBUTION WIDTH 14.7 % (11.6-16.5)
[2020-07-09] MEDS: ROXICODONE TAB 15 MG PO PRN ×2 (06:29→14:35)
[2020-07-09] MEDS: NEURONTIN CAP 400 MG PO SCH ×3 (06:29→21:26)
[2020-07-09 06:38] LABS: ALANINE AMINOTRANSFERASE 21 Units/L (12-78); ALBUMIN 2.7 g/dL (3.4-5.0); ALKALINE PHOSPHATASE 116 Units/L (46-116); ASPARTATE AMINO TRANSFERASE 21 Units/L (15-37); BLOOD UREA NITROGEN 10 mg/dL (7-18); CARBON DIOXIDE 25.8 mmol/L (21-32); CHLORIDE 102 mmol/L (98-107); COR NA(FOR HYPERGLY) 138 mmol/L (136-145); CREATININE 0.88 mg/dL (0.70-1.30); SODIUM 138 mmol/L (136-145); TOTAL PROTEIN 6.5 g/dL (6.4-8.2); eGFR NON BLACK RACES > 60 (>60)
[2020-07-09] MEDS: COREG TAB 6.25 MG PO SCH ×2 (08:57→21:26)
[2020-07-09] MEDS: FLEXERIL TAB 10 MG PO SCH ×2 (08:57→21:27)
[2020-07-09] MEDS: INVANZ INJ 1 GM VIAL 1 GM in NS 100 ML IV + SPIKE MINIBAG* 100 ML IV SCH (08:57)
[2020-07-09] MEDS: PROTONIX TAB 40 MG PO SCH (08:57)
[2020-07-09] MEDS: ASPIRIN EC 81 MG PO SCH (08:57)
[2020-07-09] MEDS: DUONEB 0.5 MG/3 MG (3 mL) NEB SCH ×2 (11:27→20:21)
[2020-07-09] MEDS: PULMICORT NEB TX 0.5 MG NEB SCH ×2 (11:28→20:21)
[2020-07-09] MEDS ORDERED: ATIVAN TAB 1 MG ONE (14:33)
[2020-07-09] MEDS: ATIVAN TAB 1 MG PO ONE (14:35)
--- NOTE | 2020-07-09 20:38 | NOTE.SOAP ---
Soap Note Note for Day of Date of Exam: 07/09/20 Subjective Data Subjective Data: Revascularization of the left leg through the femoral -femoral graft with atherectomy and drug-coated balloon angioplasty of intrastent stenosis. Patient had gangrenous changes of left transmetatarsal amputation and also has had debridement of the remaining left foot . Patient was to receive outpatient wound vacuum today but it was not delivered. He is very anxious. Objective Data Temperature: 98 F Pulse Rate: 76 Respiratory Rate: 18 Blood Pressure: 140/63 O2 Sat by Pulse Oximetry: 96 Objective Data: Patient more anxious than usual. Wound vacuum in place and working well. Already has resolved left foot Assessment Assessment: Status post revascularization of left foot and debridement of left trans metatarsal imputation and application of wound vacuum. Plan Plan: Hopefully discharge home tomorrow with home wound vacuum in place. Follow-up plan through my office.
[2020-07-09] MEDS ORDERED: ATIVAN TAB 1 MG PO PRN (20:48)
[2020-07-09] MEDS: NICOTINE PATCH TD SCH (21:27)
[2020-07-10] MEDS: LR 1000 ML IV 1,000 ML IV SCH (01:20)
[2020-07-10 04:23] VITALS: BP 123/60
--- NOTE | 2020-07-10 10:15 | PCM.DCPLAN ---
DISCHARGE SUMMARY Admission Date Date of Admission: 06/26/20 Discharge Date Discharge Date: 07/10/20 Admission Diagnoses (1) Ulcer of left medial lower extremity with necrosis of muscle: Status: Acute (2) Partial nontraumatic amputation of left foot: Status: Acute (3) Diabetes mellitus: Status: Acute Discharge Diagnoses Discharge Diagnosis: Same as admission and cardio-pulmonary arrest in the AM of 07/10/2020 Discharge Medications Discharge Medications: Home Medication List linagliptin [Tradjenta] 5 mg PO DAILY 06/27/20 [History] Prescriptions: Hospital Course Vital Signs: Temperature 97.8 F Pulse Rate [Left Brachial] 83 Pulse Rate 76 Respiratory Rate 20 Blood Pressure [Right Arm] 140/63 Blood Pressure [Left Arm] 123/60 Blood Pressure 140/63 O2 Sat by Pulse Oximetry 95 Latest Lab Results: 60-year-old male with significant history of peripheral vascular disease who has had a femoral femoral bypass graft for 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 Also history of multiple stents of the left superficial femoral artery which were occluded and following transmetatarsal amputation at the end of April he developed gangrenous changes of the distal surgical site of the left foot requiring debridement and subsequent revascularization of the left leg using atherectomy and drug-coated balloon angioplasty through the occluded stents of the left leg with reestablishment of excellent flow. Patient had been admitted recently for debridement of the left foot wound placement of wound vacuum. He was treated with IV antibiotics for ce llulitis . Cultures grew E. coli and subsequently changed to IV Invanz. We have been trying since last Wednesday, 05 July to obtain a home wound vacuum for him. It was scheduled to be placed yesterday but did not arrive and was subsequently planned to be placed this morning. The patient has been doing well with no complaints. He was found in active cardiopulmonary arrest this morning approximately 4 o'clock and did not survive.Laboratory Last Values WBC 8.0 X10^3/uL (3.6-10.0) 07/09/20 05:36 RBC 4.10 X10^6/uL (4.7-6.0) L 07/09/20 05:36 Hgb 12.5 g/dL (13.5-18.0) L 07/09/20 05:36 Hct 36.7 % (42.0-54.0) L 07/09/20 05:36 MCV 89.5 fL (80.0-100.0) 07/09/20 05:36 MCH 30.5 pg (27.0-34.0) 07/09/20 05:36 MCHC 34.1 g/dL (33.0-35.0) 07/09/20 05:36 RDW 14.7 % (11.6-16.5) 07/09/20 05:36 Plt Count 184 X10^3/uL (150.0-450.0) 07/09/20 05:36 MPV 8.3 fL (7.4-11.0) 07/09/20 05:36 Neut % (Auto) 57.0 % (42.0-75.0) 07/09/20 05:36 Lymph % (Auto) 28.2 % (21.0-51.0) 07/09/20 05:36 [place] % (Auto) 10.7 % (0.0-13.0) 07/09/20 05:36 Eos % (Auto) 3.9 % (0.9-2.9) H 07/09/20 05:36 Baso % (Auto) 0.2 % (0.2-1.0) 07/09/20 05:36 Neut # (Auto) 4.5 x10^3/uL (2.2-4.8) 07/09/20 05:36 Lymph # (Auto) 2.2 X10^3/uL (1.3-2.9) 07/09/20 05:36 [place] # (Auto) 0.9 x10^3/uL (0.3-0.8) H 07/09/20 05:36 Eos # (Auto) 0.3 x10^3/uL (0.0-0.2) H 07/09/20 05:36 Baso # (Auto) 0.0 X10^3/uL (0.0-0.1) 07/09/20 05:36 Absolute Nucleated RBC 0.1 /100WBC 07/09/20 05:36 Sodium 138 mmol/L (136-145) 07/09/20 05:36 Corrected Sodium 138 mmol/L (136-145) 07/09/20 05:36 Potassium 3.7 mmol/L (3.5-5.1) 07/09/20 05:36 Chloride 102 mmol/L (98-107) 07/09/20 05:36 Carbon Dioxide 25.8 mmol/L (21-32) 07/09/20 05:36 BUN 10 mg/dL (7-18) 07/09/20 05:36 Creatinine 0.88 mg/dL (0.70-1.30) 07/09/20 05:36 Est GFR (MDRD) Af Amer > 60 (>60) 07/09/20 05:36 Est GFR (MDRD) Non-Af > 60 (>60) 07/09/20 05:36 Glucose 120 mg/dL (65-99) H 07/09/20 05:36 POC Glucose (mg/dL) 118 mg/dL (65-99) H 07/09/20 12:02 Calcium 9.0 mg/dL (8.5-10.1) 07/09/20 05:36 Corrected Calcium 10.0 mg/dL (8.5-10.1) 07/09/20 05:36 Total Bilirubin 0.40 mg/dL (0.2-1.0) 07/09/20 05:36 AST 21 Units/L (15-37) 07/09/20 05:36 ALT 21 Units/L (12-78) 07/09/20 05:36 Alkaline Phosphatase 116 Units/L (46-116) 07/09/20 05:36 Total Protein 6.5 g/dL (6.4-8.2) 07/09/20 05:36 Albumin 2.7 g/dL (3.4-5.0) L 07/09/20 05:36 Globulin 3.8 g/dL (2.5-4.5) 07/09/20 05:36 Albumin/Globulin Ratio 0.7 Ratio (1.1-2.1) L 07/09/20 05:36 Vancomycin Trough 15.9 ug/mL (15-20) 07/01/20 04:45 SARS CoV-2 RNA Rapid ROGERS Negative (NEGATIVE) 06/26/20 16:51 Instructions Instructions: Gangrene Wound Infection, [id number] Type 2 Diabetes Mellitus, Self Care, Adult, [id number] Negative Pressure Wound Therapy Dressing Care Hypertension, Wucc-[id number] Negative Pressure Wound Therapy Steps to Quit Smoking Forms: Precautions for COVID19 Patient Portal Social Distancing
== END 2020-07-10 08:00 | disposition expired | DRG 623 ==
LOC: MED/SURG 16:32
PROVIDERS: ADMIT Surgery; ATTEND Surgery
DX: I95.89 Other hypotension; Z20.822 Contact with and (suspected) exposure to COVID-19; I96 Gangrene, not elsewhere classified; I10 Essential (primary) hypertension; I46.8 Cardiac arrest due to other underlying condition; J44.9 Chronic obstructive pulmonary disease, unspecified; Z79.4 Long term (current) use of insulin; K21.9 Gastro-esophageal reflux disease without esophagitis; Z98.890 Other specified postprocedural states; R26.89 Other abnormalities of gait and mobility; I70.6 Atherosclerosis of nonbiological bypass graft(s) of the extremities; B96.29 Other Escherichia coli [E. coli] as the cause of diseases classified elsewhere; L97.523 Non-pressure chronic ulcer of other part of left foot with necrosis of muscle; I25.10 Atherosclerotic heart disease of native coronary artery without angina pectoris; E11.65 Type 2 diabetes mellitus with hyperglycemia; E11.621 Type 2 diabetes mellitus with foot ulcer; Z89.422 Acquired absence of other left toe(s); Z72.0 Tobacco use